=== PATIENT | male | born 1940 | race Caucasian/White ===

== ENCOUNTER 2018-05-13 10:58 | Day surgery (SDC) | payer MEDICARE, BC, SELFPAY ==
[2018-05-13 11:23] VITALS: BP 122/58; PULSE 89; RESP 16; TEMP 35.7; O2SAT 98
[2018-05-13 11:43] LABS: INR 1.1 (0.9-1.1); Prothrombin Time 11.2 sec (9.3-11.0)
[2018-05-13] MEDS: Lidocaine 2% Multi-Dose 50 ML VIAL (12:20)
--- NOTE | 2018-05-13 12:52 | W.PM.OP ---
Date of service: 05/13/18 Time of Service: 12:53 Operative Note DATE OF PROCEDURE: 05/13/18 PRE-OP DIAGNOSIS: temporary dialysis cath POST-OP DIAGNOSIS: same PROCEDURE: cath removal SURGEON: Eric Rivera III ASSISTING SURGEON: Stacy Walters ANESTHESIA: MAC ESTIMATED BLOOD LOSS: 2 PATHOLOGY: none sent COMPLICATIONS: None Patient was transported to: PACU Patient's condition: stable Procedure Description: Patient was seen preoperatively all risks benefits and alternatives were discussed in detail with the surgery and consent was obtained. Patient had a preoperative INR 1.1 due to his Coumadin use for mechanical valve. Patient was brought to the operating room and placed on the operating table in a supine fashion patient underwent local anesthesia over the area was area was prepped and draped in sterile fashion. A timeout was done with the entire OR staff present. Patient had a 1.5 cm incision over the cuff of the dialysis catheter and with sharp dissection down to the level of cuff it was freed of all fibrinous tissue above and below the tract the catheter sat in. With the cuff free of any tissue growth the catheter was easily removed with pressure at the entry site in the neck on the right side. Patient had 5 minutes of pressure held to that area and then had a layered closure of the incision with a sterile dressing applied. A thorough debriefing was done with the entire OR staff. Patient tolerated procedure well was transferred to PACU and then home upon full recovery from anesthesia
--- NOTE | 2018-05-13 12:56 | W.PM.DSUDISC ---
Discharge Plan Discharge Details Attending Provider: Eric Rivera III Primary Care Provider: Chris Phillips Home Meds and New Rx's Prescriptions: No Action warfarin [Coumadin] 2.5 MG tablet 2.5 mg PO HS RF: 0 aspirin [Aspirin Low-Strength] 81 MG tablet,chewable 81 mg PO DAILY AM RF: 0 cholecalciferol (vitamin D3) [Vitamin D3] 1,000 UNIT capsule 1,000 udtab PO DAILY RF: 0 linagliptin [Tradjenta] 5 MG tablet 5 mg PO QAM RF: 0 atorvastatin 40 mg Tablet 40 mg PO QPM RF: 0 torsemide 10 mg Tablet 40 mg PO DIRECTED RF: 0 propranolol 10 mg Tablet 10 mg PO BID RF: 0 B complex with C#20-folic acid 1 mg Capsule 1 cap PO DAILY RF: 0 acetaminophen 500 mg Capsule 1,000 mg PO Q4H PRNRF: 0 acetaminophen 325 mg Capsule 650 mg PO Q6H PRNRF: 0 Nephro-Elyssa 0.8 mg Tablet 1 tab PO DAILY RF: 0
--- NOTE | 2018-05-13 13:13 | W.PM.DSUDISC ---
Discharge Plan Disposition Patient Disposition: HOME Condition: Stable Discharge Details Reason For Visit: dialysis cath removal Attending Provider: Eric Rivera III Primary Care Provider: Chris Phillips Home Meds and New Rx's Prescriptions: Continued aspirin [Aspirin Low-Strength] 81 MG tablet,chewable 81 mg PO DAILY AM RF: 0 cholecalciferol (vitamin D3) [Vitamin D3] 1,000 UNIT capsule 1,000 udtab PO DAILY RF: 0 linagliptin [Tradjenta] 5 MG tablet 5 mg PO QAM RF: 0 atorvastatin 40 mg Tablet 40 mg PO QPM RF: 0 torsemide 10 mg Tablet 40 mg PO DIRECTED RF: 0 propranolol 10 mg Tablet 10 mg PO BID RF: 0 B complex with C#20-folic acid 1 mg Capsule 1 cap PO DAILY RF: 0 acetaminophen 500 mg Capsule 1,000 mg PO Q4H PRNRF: 0 acetaminophen 325 mg Capsule 650 mg PO Q6H PRNRF: 0 Nephro-Elyssa 0.8 mg Tablet 1 tab PO DAILY RF: 0 Discontinued warfarin [Coumadin] 2.5 MG tablet 2.5 mg PO HS RF: 0 Discharge Instructions Activity:: Activity as Tolerated Diet:: As Tolerated Discharge Orders Discharge Orders: Discharge Order (Routine); Ordered 05/13/18 Ordered By: Eric Rivera III DS: Diagnosis Discharge Diagnosis (1) Vascular dialysis catheter in place: Status: Acute
== END 2018-05-13 13:39 | disposition home or self-care (01) ==
PROVIDERS: PCP Internal Medicine; Visit Provider Surgery
PROC: (CPT 36590; principal; 2018-05-13 11:00)
DX: N18.6 End stage renal disease (principal); Z45.2 Encounter for adjustment and management of vascular access device; Z79.01 Long term (current) use of anticoagulants; Z95.2 Presence of prosthetic heart valve; E11.9 Type 2 diabetes mellitus without complications; K21.9 Gastro-esophageal reflux disease without esophagitis; I10 Essential (primary) hypertension
CPT/HCPCS: 36590; 36415; 85610

== ENCOUNTER 2018-06-05 11:57 | Emergency (ER) | payer OTHER, BC, MEDICARE, SELFPAY ==
[2018-06-05 12:01] VITALS: BP 110/59; PULSE 74; RESP 16; TEMP 36.7; O2SAT 100
--- NOTE | 2018-06-05 13:23 | W.ED.GENAD ---
Discharge Plan Disposition Patient Disposition: HOME Condition: Good Discharge Details Chief Complaint: Nausea/Vomit/Diar Clinical Impression: C. difficile diarrhea Primary Care Provider: Chris Phillips ED Provider: Rickey Pastrana Home Meds and New Rx's Prescriptions: New Dificid 200 mg tablet 200 mg PO BID 10 Days Qty: 20 RF: 0 No Action aspirin [Aspirin Low-Strength] 81 MG tablet,chewable 81 mg PO DAILY AM RF: 0 cholecalciferol (vitamin D3) [Vitamin D3] 1,000 UNIT capsule 1,000 udtab PO DAILY RF: 0 atorvastatin 40 mg Tablet 40 mg PO QPM RF: 0 torsemide 10 mg Tablet 20 mg PO DIRECTED RF: 0 propranolol 10 mg Tablet 10 mg PO BID RF: 0 B complex with C#20-folic acid 1 mg Capsule 1 cap PO DAILY RF: 0 acetaminophen 500 mg Capsule 1,000 mg PO Q4H PRNRF: 0 Nephro-Elyssa 0.8 mg Tablet 1 tab PO DAILY RF: 0 warfarin 2.5 mg Tablet 2.5 mg PO HS RF: 0 Renal Vitamin 0.8 mg Tablet 1 tab PO DAILY RF: 0 calcium carbonate 500 mg calcium (1,250 mg) Tablet 500 mg PO TID RF: 0 insulin aspart U-100 100 unit/mL Solution 1 sliding scale dose SUBCUT UD RF: 0 insulin glargine 100 unit/mL (3 mL) Insulin Pen 7 unit SUBCUT DAILY RF: 0 Discharge Instructions Instructions: Clostridium Difficile Infection (ED), Acute Diarrhea (ED) Additional Instructions: Please take medication as directed. If you notice any worsening of your symptoms, or any new symptoms such as vomiting, diarrhea, fever, chills, shortness of breath, chest pain, numbness, weakness, or fainting , please return immediately to the emergency department for reevaluation. Please follow up with your primary care provider as soon as possible for reassessment and reevaluation. As always, it was a pleasure participating in your medical care today. Referrals: Chris Phillips [Primary Care Provider] - Discharge Data Discharge Date/Time-TO BE ENTERED AT DEPARTURE: 06/05/18 12:44 Medical Decision Making This is a pleasant 77-year-old male with an extensive past medical history of Coumadin use secondary to a replaced aortic valve, dialysis secondary to partial nephrectomy, for which she is now starting to come off of dialysis. He presents for diarrhea for the last month she is very benign with only one episode of semi-loose stool in the morning when he wakes up, followed by a regular bowel movement during the day. He denies any abdominal pain, or tenderness. He denies any other modifying factors. He has not been on any antibiotics for over 6 months. He denies any other complaints. The Clostridium difficile test from the [place] that was ordered was positive for C. difficile toxin., And he [facility]. Physical exam demonstrates no signs or symptoms concerning for toxic Mavik megacolon, an acute abdomen, or other significant abnormalities. He demonstrates a very benign exam with reassuring vital signs. His signs and symptoms in general appear inconsistent with severe Clostridium difficile as he has formed stool throughout the day and only the episode of diarrhea in the morning. With no signs of significant acute instability I do not think he needs to be admitted for management here, as his diarrhea is well controlled no abdominal pain or clinical signs or symptoms concerning for colitis. Additionally I do not know if even needs significant treatment. In regards to potential treatment options since he is trying to come off of dialysis I do not think that oral vancomycin is indicated as there is still a systemic absorption component which can be damaging to his kidneys. I do not think Cipro and Flagyl combos would be appropriate as fluoroquinolones use would certainly put him at risk for tendinopathy with his history of steroid use in the recent past. I do think that fidoxomicin would be an appropriate medication as it would not interact with his Coumadin, it would not harm his sensitive kidneys, and would treat potential C. difficile. I have asked our case management to contact the [facility] to help with the insurance coverage of this medication. Patient will be discharged home with close follow-up with the [facility]. I did call the [facility] and inform them of this scenario, and recommended his close follow-up. I have extensively reviewed the treatment plan and discharge instructions with the patient and their family. I have addressed all patient concerns at this time. The patient and family was made aware of what symptoms to monitor for that would warrant a return to the emergency department. Discussed the plan with the patient and family, they demonstrate verbal understanding and agreement with our assessment and plan at this time. HPI General Date/Time Provider Initiated Documentation: 06/05/18 12:04. HPI Narrative: This is a very pleasant 77-year-old male with a past medical history of renal cell carcinoma with partial nephrectomy leading to subsequent dialysis for which she is slowly weaning off, as well as Coumadin for an aortic valve replacement, and diabetes, high cholesterol and hypertension. He presents today for with complaint of diarrhea for 1 month. He was seen and assessed by his primary care provider at the [facility], where they ordered outpatient testing for Clostridium difficile. The patient's results came back positive for C. difficile, and he was told to come to the ER for further evaluation and management. Regards to his diarrhea he states that it is been present for the last 4 weeks. He has one episode of semi-loose stool in the morning, and then usually 1 formed stool later in the day. He denies any abdominal pain, vomiting, hematochezia, melena, acholic stools, recent antibiotic use in the last 5 months, foreign travel, or other complaints. He states that he actually feels that his stool has been improving somewhat over the last few days. Patient denies any other complaints at this time. He denies any other modifying factors. Related Data Home Medications Medication Instructions Recorded Confirmed aspirin [Aspirin Low-Strength] 81 mg PO DAILY AM 07/17/17 06/05/18 cholecalciferol (vitamin D3) 1,000 udtab PO DAILY 07/17/17 06/05/18 [Vitamin D3] B complex with C#20-folic acid 1 cap PO DAILY 05/02/18 06/05/18 acetaminophen 1,000 mg PO Q4H PRN 05/02/18 06/05/18 atorvastatin 40 mg PO QPM 05/02/18 06/05/18 propranolol 10 mg PO BID 05/02/18 06/05/18 torsemide 20 mg PO DIRECTED 05/02/18 06/05/18 Nephro-Elyssa 1 tab PO DAILY 05/13/18 06/05/18 B complex-vitamin C-folic acid 1 tab PO DAILY 06/05/18 06/05/18 [Renal Vitamin] calcium carbonate 500 mg PO TID 06/05/18 06/05/18 fidaxomicin [Dificid] 200 mg PO BID 10 Days #20 tab 06/05/18 insulin aspart U-100 1 sliding scale dose SUBCUT UD 06/05/18 06/05/18 insulin glargine 7 unit SUBCUT DAILY 06/05/18 06/05/18 warfarin 2.5 mg PO HS 06/05/18 06/05/18 Previous Rx's Medication Instructions Recorded fidaxomicin [Dificid] 200 mg PO BID 10 Days #20 tab 06/05/18 Allergies Allergy/AdvReac Type Severity Reaction Status Date / Time No Known Allergies Allergy Unverified 06/05/18 12:19 General Stated Complaint: Nausea/Vomit/Diar JOHAN: 3 Review of Systems Review of Systems All systems reviewed & are unremarkable except as noted in HPI and below PFSH Medical History Surgical procedures, elective (Resolved) Social History Smoking and Tabacco status: Former Tobacco Use Exam Narrative Exam Narrative: 1.Const: Well-nourished, Well-developed, appearing stated age 2.Eyes: PERRL, no conjunctival injection, and symmetrical lids. 3.ENT: Atraumatic external nose and ears. Moist MM. Neck: Symmetric, trachea midline, No thyromegaly. 4.CVS: +S1/S2, No murmurs or gallops. Peripheral pulses 2+ and equal in all extremities. Brisk capillary refill in all extremities. 5.RESP: Unlabored respiratory effort. Clear to auscultation bilaterally. No wheezes rales or rhonchi 6.GI: Soft, Nontender/Nondistended, No hepatosplenomegaly. No guarding or rebound. No signs of an acute 7.MSK: Normocephalic/Atraumatic, Extremities w/o deformity or ttp No cyanosis or clubbing, Normal movement of all extremities 8.Skin: Warm, Dry. No rashes or lesions. 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 Sensation grossly intact, no focal neurologic deficits. 10.Psych: (AAO) x3. Appropriate mood and affect Course Vital Signs Temperature 36.7 C 06/05/18 12:01 Pulse 74 06/05/18 12:01 Respiratory Rate 16 06/05/18 12:01 Blood Pressure 110/59 L 06/05/18 12:01 Pulse Oximetry 100 06/05/18 12:01 Temperature 36.7 C 06/05/18 12:01 Temperature Source Skin 06/05/18 12:01 Pulse 74 06/05/18 12:01 Respiratory Rate 16 06/05/18 12:01 Respiratory Effort Non-Labored 06/05/18 12:18 Blood Pressure 110/59 L 06/05/18 12:01 Pulse Oximetry 100 06/05/18 12:01 Oxygen Delivery Method Room Air 06/05/18 12:01 Oxygen Flow Rate 0 06/05/18 12:01 Pain Level 0 06/05/18 12:40
--- NOTE | 2018-06-05 14:55 | PDOC.ERCMPRO ---
Care Management Progress Note 06/05-Dr. Pastrana requested assistance with medication. Dr. Pastrana prescribed Dificid which is very expensive and wants to be sure that the [facility] will [facility]. Patient has already been discharged. Called [facility] at the [facility] and had to leave a message. Called [facility] who stated that they did pick the medicine up at the pharmacy and it did not cost them anything. Notified Dr. Pastrana that the medication was covered. [facility] has this CM's contact information if further assistance is needed.
== END 2018-06-05 12:44 | disposition home or self-care (01) ==
PROVIDERS: Emergency Provider Student in an Organized Health Care Education/Training Program; PCP Internal Medicine
DX: A04.72 Enterocolitis due to Clostridium difficile, not specified as recurrent (principal); Z79.01 Long term (current) use of anticoagulants; Z90.5 Acquired absence of kidney; Z99.2 Dependence on renal dialysis
CPT/HCPCS: 99283

== ENCOUNTER 2018-06-25 01:22 | Outpatient (CLI) | payer MEDICARE, BC, SELFPAY ==
--- NOTE | 2018-06-25 09:55 | DI.COMBO_ITS ---
SYMPTOMS/DIAGNOSIS: RT BREAST LUMP MAMMOGRAM AND RIGHT BREAST ULTRASOUND: Mammograms were interpreted according to the usual protocol including computer analysis with CAD system, tomosynthesis and C view imaging. There is increased breast tissue seen in the retroareolar regions bilaterally, right greater than left most suggestive of gynecomastia. No solid mass or calcification is seen. The skin and axilla are unremarkable. Right breast ultrasound was performed. The retroareolar region was evaluated sonographically. Breast tissue is seen in the retroareolar region consistent with gynecomastia. No solid or cystic mass is seen. IMPRESSION: No evidence for malignancy. Bilateral gynecomastia right greater than left. Category 2. Breast density C. The findings were discussed with the patient on the date of the examination. SA ASSESSMENT OF FINDINGS: Negative with benign findings. Category 2. Patient will receive a letter notifying them of these results. Bi-RADS category C. The breasts are heterogeneously dense, which may obscure small masses.
== END 2018-06-25 01:42 ==
PROVIDERS: PCP Internal Medicine; Visit Provider Internal Medicine
DX: N63.10 Unspecified lump in the right breast, unspecified quadrant (principal); N62 Hypertrophy of breast
CPT/HCPCS: 76642; 77062; 77066; G0279

== ENCOUNTER 2018-09-21 11:43 | Emergency (ER) | payer OTHER, BC, SELFPAY ==
[2018-09-21] VITALS (54 sets, daily range): BP systolic 101–142; BP diastolic 45–77; PULSE 86–122; RESP 9–29; TEMP 37.4; O2SAT 91–97
--- NOTE | 2018-09-21 11:48 | NUR.NOTE ---
pt developed SOB this morning upon awakening. pt also describes feeling pressure in lower sternum as well as dull left shoulder pain earlier today
--- NOTE | 2018-09-21 11:59 | DI.RAD_ITS ---
SYMPTOM/DIAGNOSIS: CHEST PAIN PA AND LATERAL CHEST: There is an apparent aortic valve prosthesis. Cardiac size is mildly enlarged. There are bilateral pleural effusions, right greater than left. No focal consolidation is seen. CONCLUSION: Bilateral pleural effusions, question mild CHF. Appropriate follow up studies requested.
--- NOTE | 2018-09-21 12:02 | ED.GENADUL_ITS ---
Discharge Plan Disposition Patient Disposition: [facility], [place] Condition: Stable Discharge Details Chief Complaint: SOB Clinical Impression: NSTEMI (non-ST elevated myocardial infarction), Elevated troponin, Pleural effusion, bilateral, Abdominal distension Primary Care Provider: Chris Phillips ED Provider: Tania Briones Home Meds and New Rx's Prescriptions: No Action aspirin [Aspirin Low-Strength] 81 MG tablet,chewable 81 mg PO DAILY AM RF: 0 cholecalciferol (vitamin D3) [Vitamin D3] 1,000 UNIT capsule 1,000 udtab PO DAILY RF: 0 atorvastatin 40 mg Tablet 40 mg PO QPM RF: 0 torsemide 10 mg Tablet 20 mg PO DIRECTED RF: 0 warfarin 2.5 mg Tablet 2.5 mg PO HS RF: 0 spironolactone 25 mg Tablet 25 mg PO DAILY RF: 0 vancomycin [Vancocin] 125 mg Capsule 125 mg PO DAILY RF: 0 diltiazem HCl [DILT-XR] 120 mg Capsule,Ext.Rel 24h Degradable 120 mg PO DAILY RF: 0 midodrine 10 mg Tablet 10 mg PO TID RF: 0 lactobacillus combo #5 150 mg (2 billion cell) Tablet,Delayed Release (Dr/Ec) RF: 0 Discharge Data Discharge Date/Time-TO BE ENTERED AT DEPARTURE: 09/21/18 17:05 Medical Decision Making 77-year-old male with history of diabetes, GERD, hypertension, end-stage renal disease on dialysis, nonalcoholic liver cirrhosis, aortic valve replacement and partial nephrectomy who presents with shortness of breath, abdominal pain and chest stiffness since this morning. Blood pressure mildly hypertensive, heart rate tachycardic 110s. Afebrile. Oxygen saturation 94% on room air. Patient is speaking in full sentences and demonstrates no signs of respiratory distress. He has diminished breath sounds in the bases bilaterally but no wheezing. He has mild abdominal distention but his abdomen is otherwise soft and nontender. EKG on arrival notes a rate of 123 and sinus with no acute ST findings, and no significant change compared to previous. Cardiac work-up ordered on arrival and notes a white blood cell count of 15, INR 2.1 on Coumadin, creatinine 4.07 which appears his baseline, troponin 0 0.08. Chest x-ray notes a moderate right pleural and small left pleural effusions. Patient is followed at the [facility]. His presentation appears likely consistent with fluid overload which may be associated with ascites with his cirrhosis versus due to his end-stage renal disease. As patient had a paracentesis at the [facility] recently and is scheduled for a paracentesis next week, will call the [facility] for transfer. 1600 -- second troponin uptrending 1.12. Patient denies any chest pain. Repeat EKG unchanged. 1630 -- d/w ER physician at [facility] Dr. Amos -results appear consistent with likely type II NSTEMI as pt denies any chest pain with unchanged ekg, and in the setting of pleural effusion and abdominal distension. However discussed that cannot rule out possible NSTEMI related to ischemia. Agree with plan for holding on heparin and Plavix at this time. Patient is on Coumadin. Will trend troponins and accepts pt for transfer to ICU at the [facility]. Medical Records Medical records reviewed: Yes I reviewed the patient's medical records. Imaging Data Radiologic Study: Radiologist's impression: XR Chest, 2 Views EXAM DATE/TIME: 09/21/2018 12:02 PM CLINICAL HISTORY: 77 years old, male; Signs and symptoms; Other: Chest pain, R/O acute disease TECHNIQUE: Imaging protocol: XR of the chest, 2 views. COMPARISON: CR PORTABLE CHEST ONE VIEW 10/07/2017 2:57 PM FINDINGS: Lungs: Unremarkable. No consolidation. Pleural space: Moderate right pleural effusion. Small left pleural effusion. Heart/Mediastinum: Valve prosthesis. No cardiomegaly. Bones/joints: Median sternotomy wires. IMPRESSION: Moderate right pleural effusion. Small left pleural effusion. Lab Data Lab results reviewed: Yes I reviewed the patient's lab results. Laboratory Tests Range/Units 09/21/18 09/21/18 09/21/18 12:00 12:14 12:14 WBC (4.4-10.8) k/cumm 15.45 H RBC (4.50-6.00) m/cumm 3.69 L Hgb (13.5-17.5) g/dL 11.9 L Hct (40.0-50.0) % 37.0 L MCV (80-95) fL 100.3 H MCH (27.0-33.0) pg 32.2 MCHC (32.0-36.0) g/dL 32.2 RDW (11.8-14.1) % 18.0 H Plt Count (130-400) x1000/uL 187 MPV (8.0-11.0) fL 11.5 H Immature Gran % 0.3 Neutrophils % 91.9 Lymphocytes % 3.7 Monocytes % 4.0 Eosinophils % 0.0 Basophils % 0.1 Absolute Neutrophils (1.2-6.7) k/cumm 14.20 H Absolute Lymphocytes (1.2-3.4) k/cumm 0.57 L Absolute Monocytes (0.11-0.7) k/cumm 0.62 Absolute Eosinophils (0.0-0.7) k/cumm 0.00 Absolute Basophils (0.0-0.2) k/cumm 0.02 PT (9.3-11.0) sec 20.9 H INR (0.9-1.1) 2.1 H APTT (21.0-31.4) sec 33.5 H Sodium (136-145) mmol/L 134 L Potassium (3.5-5.1) mmol/L 4.3 Chloride (98-107) mmol/L 96 L Carbon Dioxide (21.0-32.0) mmol/L 29.7 Anion Gap (3-11) mmol/L 8.3 BUN (7-18) mg/dL 22 H Creatinine (0.70-1.30) mg/dL 4.07 H* Estimated GFR/1.73 m2 (mL/min/1.73m2) 14.38 Glucose (70-100) mg/dL 208 H Calcium (8.5-10.1) mg/dL 8.1 L Magnesium (1.8-2.4) mg/dL 2.0 Total Bilirubin (0.2-1.0) mg/dL 1.8 H AST (15-37) U/L 102 H ALT (12-78) U/L 54 Alkaline Phosphatase (46-116) U/L 469 H Troponin I (0.00-0.06) ng/mL 0.08 H* Total Protein (6.4-8.2) g/dL 8.0 Albumin (3.4-5.0) g/dL 2.1 L Range/Units 09/21/18 15:00 WBC (4.4-10.8) k/cumm RBC (4.50-6.00) m/cumm Hgb (13.5-17.5) g/dL Hct (40.0-50.0) % MCV (80-95) fL MCH (27.0-33.0) pg MCHC (32.0-36.0) g/dL RDW (11.8-14.1) % Plt Count (130-400) x1000/uL MPV (8.0-11.0) fL Immature Gran % Neutrophils % Lymphocytes % Monocytes % Eosinophils % Basophils % Absolute Neutrophils (1.2-6.7) k/cumm Absolute Lymphocytes (1.2-3.4) k/cumm Absolute Monocytes (0.11-0.7) k/cumm Absolute Eosinophils (0.0-0.7) k/cumm Absolute Basophils (0.0-0.2) k/cumm PT (9.3-11.0) sec INR (0.9-1.1) APTT (21.0-31.4) sec Sodium (136-145) mmol/L Potassium (3.5-5.1) mmol/L Chloride (98-107) mmol/L Carbon Dioxide (21.0-32.0) mmol/L Anion Gap (3-11) mmol/L BUN (7-18) mg/dL Creatinine (0.70-1.30) mg/dL Estimated GFR/1.73 m2 (mL/min/1.73m2) Glucose (70-100) mg/dL Calcium (8.5-10.1) mg/dL Magnesium (1.8-2.4) mg/dL Total Bilirubin (0.2-1.0) mg/dL AST (15-37) U/L ALT (12-78) U/L Alkaline Phosphatase (46-116) U/L Troponin I (0.00-0.06) ng/mL 1.12 H* Total Protein (6.4-8.2) g/dL Albumin (3.4-5.0) g/dL ECG Data Attestation: I personally reviewed and interpreted this ECG (s) as follows: Interpretation: #1 -- 1150 --rate of 123, sinus, no acute ST elevation or depression. Left anterior fascicular block. QTc 483. QRS 112. T wave inversion in 1 and aVL which is seen in previous. T wave inversion in V2 which is new from previous. #2 -- 1619 --rate of 104, sinus, no acute ST elevation or depression. Left anterior fascicular block. QTc 505, QRS 114. T wave inversion in 1 and aVL which is seen in previous. Resolution of T wave inversion in V2. HPI General Mode of arrival: ambulatory . Date/Time Provider Initiated Documentation: 09/21/18 11:56 . Limitations to Documentation: no limitations . Information obtained by: patient . HPI Narrative: Patient is a 77-year-old male with a history of diabetes, GERD, hypertension, nonalcoholic liver cirrhosis end-stage renal disease on dialysis, aortic valve replacement and partial nephrectomy who presents with shortness of breath, chest stiffness and abdominal pain since this morning. He has been receiving dialysis for the past year and states his last session was his scheduled session yesterday which he completed. Patient states his symptoms feel similar as to when he has had fluid overload with his ascites due to his cirrhosis. Patient states he received a paracentesis at the [facility] recently and is scheduled for a repeat paracentesis on September 29. He admits to a chronic cough and states this is no worse than usual. He states he has been eating and drinking normally. He denies any fever, vomiting or dizziness. He states he makes some urine. Related Data Home Medications Medication Instructions Recorded Confirmed aspirin [Aspirin Low-Strength] 81 mg PO DAILY AM 07/17/17 09/21/18 cholecalciferol (vitamin D3) 1,000 udtab PO DAILY 07/17/17 09/21/18 [Vitamin D3] atorvastatin 40 mg PO QPM 05/02/18 09/21/18 torsemide 20 mg PO DIRECTED 05/02/18 09/21/18 warfarin 2.5 mg PO HS 06/05/18 09/21/18 diltiazem HCl [DILT-XR] 120 mg PO DAILY 09/21/18 09/21/18 lactobacillus combo #5 09/21/18 midodrine 10 mg PO TID 09/21/18 09/21/18 spironolactone 25 mg PO DAILY 09/21/18 09/21/18 vancomycin [Vancocin] 125 mg PO DAILY 09/21/18 09/21/18 Allergies Allergy/AdvReac Type Severity Reaction Status Date / Time No Known Allergies Allergy Unverified 09/21/18 11:53 General Stated Complaint: SOB JOHAN: 2 Review of Systems Review of Systems All systems reviewed & are unremarkable except as noted in HPI and below Constitutional Reports as per HPI, Denies chills and Denies fever(s) Eyes Denies blurry vision ENT Denies dizziness, Denies sore throat and Denies throat swelling Cardiovascular Reports chest pain and Reports dyspnea Respiratory Denies cough and Reports dyspnea Gastrointestinal Reports abdominal pain, Denies diarrhea and Denies vomiting Genitourinary Denies hematuria and Denies dysuria Musculoskeletal Denies back pain and Denies numbness Integumentary/Breasts Denies lesions and Denies rash Neurologic Denies dizziness, Denies focal weakness and Denies numbness Allergic/Immunologic Denies throat swelling [facility] Medical History ESRD (end stage renal disease) on dialysis (Acute) Diabetes (Chronic) GERD (gastroesophageal reflux disease) (Chronic) HTN (hypertension) (Chronic) Surgical procedures, elective (Resolved) Surgical History H/O aortic valve replacement (Acute) History of nephrectomy (Acute) History of cataract surgery (Chronic) Social History Smoking/Tobacco Use Status: Former Tobacco Use Alcohol Intake: never Drug use: Never Substance use type: does not use Do you feel safe at home: Yes Do you feel safe in your relationship?: Yes Exam Const General: cooperative, healthy appearing and no acute distress HENMT Head: normal to inspection Face and sinus: normal facial exam Eyes General: appearance normal, both eyes and all related structures EOM: EOM intact bilaterally Neck Neck: normal visual inspection and No submandibular swelling Lymphatic: no lymphadenopathy noted Chest Chest: normal inspection of the chest and no tenderness Resp Effort & Inspection: normal respiratory effort and able to speak in complete sentences Auscultation: diminished lung sounds bilaterally (Bases) Cardio Rate: tachycardic Rhythm: regular rhythm GI Inspection: normal to inspection and distended (mild-moderate) Palpation: soft, not firm, not rigid and nontender Auscultation: hypoactive bowel sounds Skin General skin exam: no rashes or lesions noted Neuro General: alert, awake and oriented x3 Cognition: normal cognition Speech: speech normal Motor: muscle tone normal throughout Sensory Exam: no sensory deficits noted Extrem General: normal to inspection, full ROM and no edema Psych Appearance: grossly normal Mental Status: mental status grossly normal Speech and Movement: speech and movement normal Affect: normal affect Course Vital Signs Temperature 99.3 F 09/21/18 11:50 Pulse 121 H 09/21/18 11:50 Respiratory Rate 18 09/21/18 11:50 Blood Pressure 142/58 H 09/21/18 11:50 Pulse Oximetry 94 L 09/21/18 11:50 Temperature 99.3 F 09/21/18 11:50 Temperature Source Skin 09/21/18 11:50 Pulse 121 H 09/21/18 11:50 Respiratory Rate 18 09/21/18 11:50 Blood Pressure 142/58 H 09/21/18 11:50 Blood Pressure Position Sitting 09/21/18 11:50 Pulse Oximetry 94 L 09/21/18 11:50 Oxygen Delivery Method Room Air 09/21/18 11:50 Oxygen Flow Rate 0 09/21/18 11:50 Pain Level 2 09/21/18 11:50
[2018-09-21 12:24] LABS: Abs Immature Grans 0.05 k/cumm (0.0-0.09); Absolute Lymphocyte Count 0.57 k/cumm (1.2-3.4); Absolute Monocyte Count 0.62 k/cumm (0.11-0.7); Basophils % 0.1; HGB 11.9 g/dL (13.5-17.5); Immature Grans % 0.3; Lymphocytes % 3.7; Mean Corp. HGB Concentration 32.2 g/dL (32.0-36.0); Mean Corpuscular Hemoglobin 32.2 pg (27.0-33.0); Mean Corpuscular Volume 100.3 fL (80-95); Mean Platelet Volume 11.5 fL (8.0-11.0); Neutrophils % 91.9; Platelet Count 187 x1000/uL (130-400); RBC 3.69 m/cumm (4.50-6.00); White Blood Cell Count 15.45 k/cumm (4.4-10.8)
[2018-09-21 12:26] LABS: Absolute Basophil Count 0.02 k/cumm (0.0-0.2)
[2018-09-21 12:38] LABS: INR 2.1 (0.9-1.1); PTT Activated 33.5 sec (21.0-31.4); Prothrombin Time 20.9 sec (9.3-11.0)
[2018-09-21 12:39] LABS: ALT 54 U/L (12-78); AST 102 U/L (15-37); Albumin 2.1 g/dL (3.4-5.0); Alkaline Phosphatase 469 U/L (46-116); Anion Gap 8.3 mmol/L (3-11); BUN 22 mg/dL (7-18); Bilirubin, Total 1.8 mg/dL (0.2-1.0); CO2 29.7 mmol/L (21.0-32.0); Calcium 8.1 mg/dL (8.5-10.1); Chloride 96 mmol/L (98-107); Estimated GFR 14.38 (mL/min/1.73m2); Glucose 208 mg/dL (70-100); Potassium 4.3 mmol/L (3.5-5.1); Sodium 134 mmol/L (136-145)
[2018-09-21 12:41] LABS: CREATININE 4.07 mg/dL (0.70-1.30)
[2018-09-21 12:42] LABS: Troponin I 0.08 ng/mL (0.00-0.06)
--- NOTE | 2018-09-21 13:10 | DI.VRAD_ITS ---
EXAM: XR Chest, 2 Views EXAM DATE/TIME: 09/21/2018 12:02 PM CLINICAL HISTORY: 77 years old, male; Signs and symptoms; Other: Chest pain, R/O acute disease TECHNIQUE: Imaging protocol: XR of the chest, 2 views. COMPARISON: CR PORTABLE CHEST ONE VIEW 10/07/2017 2:57 PM FINDINGS: Lungs: Unremarkable. No consolidation. Pleural space: Moderate right pleural effusion. Small left pleural effusion. Heart/Mediastinum: Valve prosthesis. No cardiomegaly. Bones/joints: Median sternotomy wires. IMPRESSION: Moderate right pleural effusion. Small left pleural effusion. Dictated and Authenticated by: Carol Dang MD. Ordering:CHRISTINA Marin MD
[2018-09-21 15:23] LABS: Troponin I 1.12 ng/mL (0.00-0.06)
--- NOTE | 2018-09-21 16:03 | NUR.NOTE ---
Nursing Note: 0555 [facility] called to say that he could not get [facility] to transport the patient, that we were to use the local service for his transfer. Lola Mcdaniels.
[2018-09-21] MEDS: Aspirin 81 MG CHEW (16:04)
--- NOTE | 2018-09-21 16:07 | NUR.NOTE ---
pt state that SOB no longer present post beeing places on 3 L
== END 2018-09-21 17:05 | disposition short-term general hospital (02) ==
PROVIDERS: Emergency Provider Physician Assistant; PCP Internal Medicine
DX: I21.4 Non-ST elevation (NSTEMI) myocardial infarction (principal); J90 Pleural effusion, not elsewhere classified; R14.0 Abdominal distension (gaseous); E11.22 Type 2 diabetes mellitus with diabetic chronic kidney disease; I12.0 Hypertensive chronic kidney disease with stage 5 chronic kidney disease or end stage renal disease; N18.6 End stage renal disease; Z99.2 Dependence on renal dialysis; Z95.2 Presence of prosthetic heart valve; Z90.5 Acquired absence of kidney
CPT/HCPCS: 36415; 80053; 93005; 99285; 71046; 83735; 84484; 85025; 85610; 85730; 93010

== ENCOUNTER 2018-12-23 19:02 | Emergency (ER) | payer OTHER, SELFPAY ==
--- NOTE | 2018-12-23 19:09 | ED.GENADUL_ITS ---
Discharge Plan Disposition Patient Disposition: HOME Condition: Stable Discharge Details Chief Complaint: Laceration Clinical Impression: Hemorrhage of arteriovenous fistula Primary Care Provider: Chris Phillips ED Provider: Chris Allan Home Meds and New Rx's Prescriptions: Continued aspirin [Aspirin Low-Strength] 81 MG tablet,chewable 81 mg PO DAILY AM RF: 0 cholecalciferol (vitamin D3) [Vitamin D3] 1,000 UNIT capsule 1,000 udtab PO DAILY RF: 0 atorvastatin 40 mg Tablet 40 mg PO QPM RF: 0 torsemide 10 mg Tablet 20 mg PO DIRECTED RF: 0 warfarin 2.5 mg Tablet 2.5 mg PO HS RF: 0 spironolactone 25 mg Tablet 25 mg PO DAILY RF: 0 vancomycin [Vancocin] 125 mg Capsule 125 mg PO DAILY RF: 0 diltiazem HCl [DILT-XR] 120 mg Capsule,Ext.Rel 24h Degradable 120 mg PO DAILY RF: 0 midodrine 10 mg Tablet 10 mg PO TID RF: 0 lactobacillus combo #5 150 mg (2 billion cell) Tablet,Delayed Release (Dr/Ec) RF: 0 Discharge Instructions Additional Instructions: if bleeding recurs hold direct pressure over the site for 20 minutes. If this doesn't stop the bleeding return to the emergency department Medical Decision Making 78 yo male with hx of esrd on dialysis who underwent dialysis earlier today and tonight had bleeding from his left fistula. He applieda pressure dressing and came here, and no longer has any bleeding. Has 2small superficial areas over the fistula that appear to have been the source of bleeding, no evidence of arterial bleeding. I covered with skin adhesive and pressure dressing applied. Advised if recurs and can't control with pressure to return to the emergency department. Strong palpable thrill over fistula and no evidence of infection at this time Differential Diagnosis bleeding fistula, laceration HPI General Mode of arrival: ambulatory . Date/Time Provider Initiated Documentation: 12/23/18 19:08 . Limitations to Documentation: no limitations . Information obtained by: patient . History of Present Illness 78 year old M presents to the emergency department with the chief complaint of bleeding from left arm fistula, described as moderate, and it has been now resolved. No relieving factors improve symptom(s), No exacerbating factors reported . Patient did receive the following treatments prior to arrival, none Related Data Home Medications Medication Instructions Recorded Confirmed aspirin [Aspirin Low-Strength] 81 mg PO DAILY AM 07/17/17 09/21/18 cholecalciferol (vitamin D3) 1,000 udtab PO DAILY 07/17/17 09/21/18 [Vitamin D3] atorvastatin 40 mg PO QPM 05/02/18 09/21/18 torsemide 20 mg PO DIRECTED 05/02/18 09/21/18 warfarin 2.5 mg PO HS 06/05/18 09/21/18 diltiazem HCl [DILT-XR] 120 mg PO DAILY 09/21/18 09/21/18 lactobacillus combo #5 09/21/18 midodrine 10 mg PO TID 09/21/18 09/21/18 spironolactone 25 mg PO DAILY 09/21/18 09/21/18 vancomycin [Vancocin] 125 mg PO DAILY 09/21/18 09/21/18 Allergies Allergy/AdvReac Type Severity Reaction Status Date / Time No Known Allergies Allergy Unverified 09/21/18 11:53 General JOHAN: 2 Review of Systems Review of Systems All systems reviewed & are unremarkable except as noted in HPI and below Constitutional Denies chills, Denies fever(s) and Denies weakness Cardiovascular Denies chest pain and Denies dyspnea Respiratory Denies cough and Denies dyspnea Gastrointestinal Denies abdominal pain, Denies nausea and Denies vomiting Musculoskeletal Denies joint swelling Neurologic Denies weakness [facility] Social History Smoking/Tobacco Use Status: Former Tobacco Use Alcohol Intake: never Drug use: Never Substance use type: does not use Do you feel safe at home: Yes Do you feel safe in your relationship?: Yes Exam Const General: no acute distress Orientation: alert HENUT Head: normal to inspection Ears: external ears normal General nose exam: external nose normal Mouth: moist mucous membranes Eyes General: appearance normal, both eyes and all related structures Neck Neck: normal visual inspection Resp Effort & Inspection: normal respiratory effort and able to speak in complete sentences Cardio Rate: regular rate Skin General skin exam: no rashes or lesions noted Neuro General: alert and oriented x3 Extrem General: full ROM Psych Mental Status: mental status grossly normal
[2018-12-23 19:12] VITALS: BP 119/55; PULSE 75; RESP 17; TEMP 37.6; O2SAT 98
[2018-12-23 19:16] VITALS: BP 119/55; PULSE 75; RESP 17; TEMP 37.6; O2SAT 98
== END 2018-12-23 19:18 | disposition home or self-care (01) ==
PROVIDERS: Emergency Provider Emergency Medicine; PCP Internal Medicine
DX: T82.838A Hemorrhage due to vascular prosthetic devices, implants and grafts, initial encounter (principal); S41.112A Laceration without foreign body of left upper arm, initial encounter; X58.XXXA Exposure to other specified factors, initial encounter; N18.6 End stage renal disease; Z99.2 Dependence on renal dialysis; E11.22 Type 2 diabetes mellitus with diabetic chronic kidney disease; Z79.4 Long term (current) use of insulin; I12.0 Hypertensive chronic kidney disease with stage 5 chronic kidney disease or end stage renal disease
CPT/HCPCS: 12001

== ENCOUNTER 2018-12-30 18:55 | Emergency (ER) | payer OTHER, MEDICARE, BC, SELFPAY ==
[2018-12-30 19:03] VITALS: BP 127/73; PULSE 75; RESP 18; TEMP 36.1; O2SAT 100
--- NOTE | 2018-12-30 19:10 | W.ED.GENAD ---
Discharge Plan Disposition Patient Disposition: HOME Discharge Details Chief Complaint: Vascular Clinical Impression: Hemorrhage of arteriovenous fistula Primary Care Provider: Chris Phillips ED Provider: Reuben Bacon Home Meds and New Rx's Prescriptions: No Action aspirin [Aspirin Low-Strength] 81 MG tablet,chewable 81 mg PO DAILY AM RF: 0 cholecalciferol (vitamin D3) [Vitamin D3] 1,000 UNIT capsule 1,000 udtab PO DAILY RF: 0 atorvastatin 40 mg Tablet 40 mg PO QPM RF: 0 torsemide 10 mg Tablet 20 mg PO DIRECTED RF: 0 warfarin 2.5 mg Tablet 5 mg PO HS RF: 0 spironolactone 25 mg Tablet 25 mg PO DAILY RF: 0 midodrine 10 mg Tablet 10 mg PO TID RF: 0 lactobacillus combo #5 150 mg (2 billion cell) Tablet,Delayed Release (Dr/Ec) RF: 0 Discharge Instructions Additional Instructions: If your bleeding returns at home apply direct pressure with 4 x 4 dressings. We did find that your INR was slightly elevated today therefore I have instructed that you hold your Coumadin tonight and restart your normal dose tomorrow. If bleeding becomes severe return to the emergency department immediately. Referrals: Chris Phillips [Primary Care Provider] - 1 day Medical Decision Making This is a nontoxic-appearing 78-year-old male returning to the emergency department with a slow bleed from his arterial venous fistula. Bleeding controlled prior to arrival. 2 small areas of source of bleeding noted over the AV fistula. Area compressed with 4 x 4's and Rashawn wrap. His INR was slightly elevated at 3.8, however he requires Coumadin for his aortic valve. Normal reference range 2.5-3.5. I have instructed him to hold his Coumadin tonight and restart at his normal dose tomorrow. Return precautions discussed. He will follow-up with his primary care at the [facility] tomorrow. HPI General Date/Time Provider Initiated Documentation: 12/30/18 19:10. HPI Narrative: Patient is a 78-year-old male presenting with a left arm graft fistula with weekly dialysis who presents to the emergency department with a bleeding graft. Patient states that he is presented to the emergency department with similar symptoms in the past. He is on Coumadin with his INR drawn today at the [facility]. He does not know the result. Denies any dizziness or lightheadedness associated with bleeding. Bleeding occurred roughly 30 minutes ago and he believes he is got it under control at this time. Related Data Home Medications Medication Instructions Recorded Confirmed aspirin [Aspirin Low-Strength] 81 mg PO DAILY AM 07/17/17 09/21/18 cholecalciferol (vitamin D3) 1,000 udtab PO DAILY 07/17/17 09/21/18 [Vitamin D3] atorvastatin 40 mg PO QPM 05/02/18 09/21/18 torsemide 20 mg PO DIRECTED 05/02/18 09/21/18 warfarin 5 mg PO HS 06/05/18 12/30/18 lactobacillus combo #5 09/21/18 midodrine 10 mg PO TID 09/21/18 09/21/18 spironolactone 25 mg PO DAILY 09/21/18 09/21/18 Allergies Allergy/AdvReac Type Severity Reaction Status Date / Time No Known Allergies Allergy Unverified 12/30/18 19:05 General Stated Complaint: Vascular JOHAN: 3 Review of Systems Constitutional Denies fatigue, Denies lethargy and Denies weakness ENT Denies dizziness Cardiovascular Denies chest pain, Denies syncope and Denies dyspnea Respiratory Denies dyspnea Neurologic Denies dizziness, Denies syncope, Denies focal weakness and Denies weakness Endocrine Denies fatigue [facility] Medical History Diabetes (Chronic) ESRD (end stage renal disease) on dialysis (Acute) GERD (gastroesophageal reflux disease) (Chronic) HTN (hypertension) (Chronic) Surgical procedures, elective (Resolved) Removal of temporary dialysis catheter/port by Dr Eric Rivera, [facility] Surgical History H/O aortic valve replacement (Acute) History of cataract surgery (Chronic) History of nephrectomy (Acute) Social History Smoking/Tobacco Use Status: Former Tobacco Use Alcohol Intake: never Drug use: Never Substance use type: does not use Do you feel safe at home: Yes Do you feel safe in your relationship?: Yes Exam Const General: cooperative and healthy appearing Orientation: alert, awake and oriented x3 HENMT Head: normal to inspection Eyes General: appearance normal, both eyes and all related structures EOM: EOM intact bilaterally Neck Neck: normal visual inspection Extrem Other: Small area of clotted blood roughly 1 cm in diameter over the mid aspect of the AV fistula. No active bleeding at this time. No signs of infection without erythema. Notable thrill Course Vital Signs Temperature 36.1 C L 12/30/18 19:03 Pulse 75 12/30/18 19:03 Respiratory Rate 18 12/30/18 19:03 Blood Pressure 127/73 12/30/18 19:03 Pulse Oximetry 100 12/30/18 19:03 Temperature 36.1 C L 12/30/18 19:03 Temperature Source Skin 12/30/18 19:03 Pulse 75 12/30/18 19:03 Respiratory Rate 18 12/30/18 19:03 Blood Pressure 127/73 12/30/18 19:03 Blood Pressure Position Sitting 12/30/18 19:03 Pulse Oximetry 100 12/30/18 19:03 Oxygen Delivery Method Room Air 12/30/18 19:03 Oxygen Flow Rate 0 12/30/18 19:03 Pain Level 0 12/30/18 19:03
== END 2018-12-30 20:05 | disposition home or self-care (01) ==
PROVIDERS: Emergency Provider Physician Assistant; PCP Internal Medicine
DX: T82.838A Hemorrhage due to vascular prosthetic devices, implants and grafts, initial encounter (principal); R79.1 Abnormal coagulation profile; T45.515A Adverse effect of anticoagulants, initial encounter; Z95.2 Presence of prosthetic heart valve; I12.0 Hypertensive chronic kidney disease with stage 5 chronic kidney disease or end stage renal disease; N18.6 End stage renal disease; Z99.2 Dependence on renal dialysis; E11.22 Type 2 diabetes mellitus with diabetic chronic kidney disease
CPT/HCPCS: 99282; 99283

== ENCOUNTER 2020-01-28 11:06 | Emergency (ER) | payer MEDICARE, BC, SELFPAY ==
[2020-01-28] VITALS (54 sets, daily range): BP systolic 60–118; BP diastolic 33–60; PULSE 78–137; RESP 13–38; TEMP 35.9; O2SAT 96–100
--- NOTE | 2020-01-28 11:00 | RT.EKG_ITS ---
APPROVED REPORT Exam: Resting ECG Patient Location: E HR:100 bpm ECG Measurements Heart Rate 100 AXIS W[place] [id number] P [id number] QRSd 124 QRS -62 QT 433 T 124 QTc 558 Conclusion Atrial fibrillation RBBB and LAFB... LVH with secondary repolarization abnormality...multi-LVH criteria, abnrm ST-T
--- NOTE | 2020-01-28 11:00 | RT.EKG_ITS ---
APPROVED REPORT Exam: Resting ECG Patient Location: E HR:94 bpm ECG Measurements Heart Rate 94 AXIS MA [id number] P [id number] QRSd 114 QRS -62 QT 420 T 104 QTc 527 Conclusion Atrial fibrillation. Incomplete RBBB and LVH with secondary repolarization abnormality...multi-LVH criteria, abnrm ST-T
--- NOTE | 2020-01-28 11:15 | DI.RAD_ITS ---
EXAM: XR PORTABLE CHEST AP CLINICAL HISTORY: CHest pain TECHNIQUE: COMPARISON: CR XR CHEST 2V PA LATERAL from 09/21/2018 FINDINGS: There is a right pleural effusion. No definite left pleural effusion. Slight prominence of pulmonar y interstitial markings may reflect chronic changes versus borderline CHF. Heart is enlarged with AV R in place. IMPRESSION: Right pleural effusion, question mild CHF, little interval change from 09/21/2018 except for decrease d size of left pleural effusion since that time RADIATION DOSE DELIVERED: Total DLP
[2020-01-28 11:21] LABS: Abs Immature Grans 0.01 10^3/uL (0.0-0.06); Absolute Basophil Count 0.02 10^3/uL (0.0-0.2); Absolute Eosinophil Count 0.04 10^3/uL (0.0-0.7); Absolute Lymphocyte Count 1.56 10^3/uL (1.2-3.4); Absolute Neutrophil Count 1.94 10^3/uL (1.2-6.7); Basophils % 0.5; HCT 28.5 % (40.0-50.0); HGB 9.5 g/dL (13.5-17.5); Immature Grans % 0.2; Lymphocytes % 37.4; MCH 32.4 pg (27.0-33.0); MCHC 33.3 % (32.0-36.0); MCV 97.3 fL (80-95); MPV 12.9 fL (8.0-11.0); Monocytes % 14.4; Neutrophils % 46.5; Nucleated RBC 0 %; RBC 2.93 10^6/uL (4.36-5.78); RDW 16.4 % (11.8-14.1); RDW-SD 58.4 fL; WBC 4.17 10^3/uL (4.4-10.8)
--- NOTE | 2020-01-28 11:21 | W.ED.GENAD ---
Discharge Plan Disposition Patient Disposition: [facility] Condition: Critical Discharge Details Clinical Impression: Hypotension, Chest pain Primary Care Provider: Chris Phillips ED Provider: Jay Cisse Home Meds and New Rx's Prescriptions: No Action aspirin [Aspirin Low-Strength] 81 MG tablet,chewable 81 mg PO DAILY AM RF: 0 cholecalciferol (vitamin D3) [Vitamin D3] 1,000 UNIT capsule 1,000 udtab PO DAILY RF: 0 atorvastatin 40 mg Tablet 40 mg PO QPM RF: 0 torsemide 10 mg Tablet 20 mg PO .// RF: 0 warfarin 2.5 mg Tablet 5 mg PO .// RF: 0 spironolactone 25 mg Tablet 25 mg PO .// RF: 0 midodrine 10 mg Tablet 10 mg PO BID RF: 0 lactobacillus combo #5 150 mg (2 billion cell) Tablet,Delayed Release (Dr/Ec) 150 mg PO .WITH MEALS RF: 0 warfarin 2.5 mg Tablet 2.5 mg PO ./// RF: 0 Renal Multivitamin Formula 0.8 mg Tablet 1 tab PO DAILY RF: 0 sevelamer carbonate 800 mg tablet 800 mg PO QID RF: 0 Medical Decision Making 79-year-old male presents from dialysis. He had his routine hemodialysis, then at the end developed hypotension with blood pressure 80/40. He was given a total of 1600 cc fluids and brought to the hospital by EMS. He arrives pale, diaphoretic, ill-appearing and hypotensive. He has a history of A. fib, aortic valve replacement, CABG, as well as 2 stents to his ramus. His initial EKG shows A. fib with a rate of proxy [address] depressions and T wave inversions in 1 and aVL, ST depressions laterally. He has interventricular conduction delay which appears somewhat more pronounced in comparison to September 21, 2018. Patient placed on a compliance monitor, given additional 200 cc of fluid and 2 peripheral IVs placed. Persistent hypotension and patient placed on a dobutamine drip. Initial chest x-ray with known previously noted right pleural effusion, cardiomegaly and trace pulmonary edema. Labs with white count 4, hematocrit 28, platelets 88. His potassium is 2.8 and supplemented in the ED. ABG with pH 7.6 PCO2 28, PO2 of 146. Initial troponin negative. Given undifferentiated chest pain with hypotension, patient referred for CT scan of the chest. Upon return from CT, patient states chest pain improving. CT reveals:no PE, no significant pulm edema. R pleural effusion. Versus 2018, R lung base consolidation versus mass. On dobutamine at 5 mcg/kg/min the patient has no blood pressure 87/37, will titrate up levophed. Due to patient's critically ill condition, need for hemodialysis, potential need for cardiac catheterization I did feel transfer to closest tertiary care center was appropriate. Case discussed with Critical Care team at [facility] and patient accepted in transfer to Dr Gill's service. Lab Data Lab results reviewed: Yes I reviewed the patient's lab results. Labs: Laboratory Results - last 24 hr 01/28/20 01/28/20 01/28/20 11:03 11:03 11:10 WBC 4.17 L RBC 2.93 L Hgb 9.5 L Hct 28.5 L MCV 97.3 H MCH 32.4 MCHC 33.3 RDW 16.4 H Plt Count 88 L MPV 12.9 H Immature Gran % 0.2 Neutrophils % 46.5 Lymphocytes % 37.4 Monocytes % 14.4 Eosinophils % 1.0 Basophils % 0.5 Nucleated RBC % 0 Absolute Neutrophils 1.94 Absolute Lymphocytes 1.56 Absolute Monocytes 0.60 Absolute Eosinophils 0.04 Absolute Basophils 0.02 RBC Morphology Normal PT 45.0 H INR 4.7 H* ABG Sample Site ABG pH ABG pCO2 ABG pO2 ABG HCO3 ABG O2 Saturation ABG Base Excess Oxygen Liter Flow Sodium 140 Potassium 2.8 L* Chloride 103 Carbon Dioxide 29.2 Anion Gap 7.8 BUN 11 Creatinine 1.99 H Estimated GFR/1.73 m2 32.66 Glucose 82 Calcium 7.4 L Magnesium 1.7 L Total Bilirubin 1.0 AST 49 H ALT 34 Alkaline Phosphatase 240 H Troponin I < 0.05 Total Protein 5.8 L Albumin 2.2 L 01/28/20 01/28/20 11:11 11:42 WBC RBC Hgb Hct MCV MCH MCHC RDW Plt Count MPV Immature Gran % Neutrophils % Lymphocytes % Monocytes % Eosinophils % Basophils % Nucleated RBC % Absolute Neutrophils Absolute Lymphocytes Absolute Monocytes Absolute Eosinophils Absolute Basophils RBC Morphology PT INR ABG Sample Site Left radial ABG pH 7.64 H* ABG pCO2 28 L ABG pO2 146 H ABG HCO3 30 H ABG O2 Saturation > 99 H ABG Base Excess 9 H Oxygen Liter Flow 3 Sodium Cancelled Potassium Cancelled Chloride Cancelled Carbon Dioxide Cancelled Anion Gap Cancelled BUN Cancelled Creatinine Cancelled Estimated GFR/1.73 m2 Cancelled Glucose Cancelled Calcium Cancelled Magnesium Total Bilirubin Cancelled AST Cancelled ALT Cancelled Alkaline Phosphatase Cancelled Troponin I Cancelled Total Protein Cancelled Albumin Cancelled HPI General Mode of arrival: EMS. Date/Time Provider Initiated Documentation: 01/28/20 11:12. Limitations to Documentation: no limitations. Information obtained by: patient and EMS. History of Present Illness 79 year old M presents to the emergency department with the chief complaint of Chest pain after dialysis, described as severe, Quality is described as dull and constant, and is localized to the chest. Patient reports no radiation. Patient started experiencing this minute(s) and it has been constant. No relieving factors improve symptom(s), No exacerbating factors reported . Patient notes chest pain and shortness of breath; denies syncope. Patient did receive the following treatments prior to arrival, other (1600 cc fluids) Related Data Home Medications Medication Instructions Recorded Confirmed aspirin [Aspirin Low-Strength] 81 mg PO DAILY AM 07/17/17 01/28/20 cholecalciferol (vitamin D3) 1,000 udtab PO DAILY 07/17/17 01/28/20 [Vitamin D3] atorvastatin 40 mg PO QPM 05/02/18 01/28/20 torsemide 20 mg PO .M/W/05/02/18 01/28/20 warfarin 5 mg PO .M/W/F 06/05/18 01/28/20 lactobacillus combo #5 150 mg PO .WITH MEALS 09/21/18 01/28/20 midodrine 10 mg PO BID 09/21/18 01/28/20 spironolactone 25 mg PO .M/W/F 09/21/18 01/28/20 B complex-vitamin C-folic acid 1 tab PO DAILY 01/28/20 01/28/20 [Renal Multivitamin Formula] sevelamer carbonate 800 mg PO QID 01/28/20 01/28/20 warfarin 2.5 mg PO .//SA/JACQUES 01/28/20 01/28/20 Allergies Allergy/AdvReac Type Severity Reaction Status Date / Time No Known Allergies Allergy Unverified 12/30/18 19:05 General Stated Complaint: Chest Pain JOHAN: 2 Review of Systems Narrative: Denies syncope. States he has been well. Had normal dialysis run, then developed tachycardia and hypotension to 80/40, given 1600 cc fluid by dialysis and EMS. Recent decrease in midodrine rfom TID to BID PFSH Medical History (Updated 01/28/20 @ 12:32 by Jay Cisse MD) Diabetes ESRD (end stage renal disease) on dialysis GERD (gastroesophageal reflux disease) HTN (hypertension) Surgical procedures, elective Removal of temporary dialysis catheter/port by Dr Eric Rivera, [facility] Surgical History H/O aortic valve replacement History of cataract surgery History of nephrectomy Social History Smoking/Tobacco Use Status: Former Tobacco Use Alcohol Intake: never Drug use: Never Substance use type: does not use Do you feel safe at home: Yes Do you feel safe in your relationship?: Yes Exam Narrative Exam Narrative: GEN: awake, alert, oriented 3. Pale and diaphoretic HEAD: Normocephalic, atraumatic ENT: Mucous membranes moist, oropharynx unremarkable, External ear exam unremarkable EYES: PERRL, EOMI NECK: Full ROM, no VICTORINA, no menigismus CHEST/RESP: Nontender, clear to auscultation bilateral, no wheeze/rhonchi/rales CARDIOVASCULAR: IRREGULARLY IRREGULAR, tachycardic. Weak palpable rad pulse bilateral ABDOMEN: Soft, nontender, no mass. +Bowel sounds EXT: Full ROM, left upper extremity AV fistula with thrill. Neuro: Grossly normal neurologic exam, conversant, interactive. Psych: Speech fluent, thoughts congruent, affect normal Course Vital Signs Vital signs: Vital Signs Temperature 35.9 C L 01/28/20 11:07 Pulse 89 01/28/20 11:07 Respiratory Rate 19 01/28/20 11:07 Blood Pressure 73/39 L 01/28/20 11:07 Pulse Oximetry 96 01/28/20 11:07 Temperature 35.9 C L 01/28/20 11:07 Temperature Source Temporal Artery Scan 01/28/20 11:07 Pulse 89 01/28/20 11:07 Respiratory Rate 19 01/28/20 11:07 Respiratory Effort 01/28/20 11:15 Blood Pressure 73/39 L 01/28/20 11:07 Blood Pressure Position Supine 01/28/20 11:07 Pulse Oximetry 96 01/28/20 11:07 Oxygen Delivery Method Nasal Cannula 01/28/20 11:07 Oxygen Flow Rate 2 01/28/20 11:07 Pain Level 5 01/28/20 11:07 Lab/Test Results Lab/Test Results: Laboratory Tests Range/Units 01/28/20 11:11 Sodium Cancelled Potassium Cancelled Chloride Cancelled Carbon Dioxide Cancelled Anion Gap Cancelled BUN Cancelled Creatinine Cancelled Estimated GFR/1.73 m2 Cancelled Glucose Cancelled Calcium Cancelled Total Bilirubin Cancelled AST Cancelled ALT Cancelled Alkaline Phosphatase Cancelled Troponin I Cancelled Total Protein Cancelled Albumin Cancelled Critical Care Time Critical Care Time Critical Care Time: Yes Total Critical Care Time: 60 Attestation: Bedside management, review of records, discussion with consultants team, discussion with family.
--- NOTE | 2020-01-28 11:30 | DI.CT_ITS ---
EXAM: CT CHEST PE CTA CLINICAL HISTORY: chest pain TECHNIQUE: COMPARISON: CT ABD PELVIS WO CONTRAST from 10/06/2017 FINDINGS: CT angiography of the chest was performed with bolus infusion of 100 cc of Omnipaque 350. Images obtained through the upper at abdomen show unremarkable appearance of visualized portions of l iver, spleen, and pancreas. 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 There is no evidence of pulmonary embolic disease. There is mild cardiac enlargement. There is no mediastinal or hilar adenopathy. There is a large right pleural effusion. There is no left pleural effusion. There are areas of atel ectasis at the right lung base. Additionally there is a rounded area consolidation versus mass seen in the right lower lobe posteriorly. This was not present on prior abdominal CT of September 2017. Addit ional possible area of consolidation and/or atelectasis noted anteriorly at the right lung base. There is no evidence of pulmonary interstitial edema. IMPRESSION: No evidence of pulmonary embolic disease. Large right pleural effusion, this has been present on prior examinations, question interval developm ent right basilar consolidation versus mass. Follow-up chest CT requested following treatment. RADIATION DOSE DELIVERED: 357.3mGy.cm Total DLP
[2020-01-28] MEDS: DOBUTamine 500 MG/250 ML BAG IV (11:34)
[2020-01-28 11:35] LABS: ALT 34 U/L (16-63); AST 49 U/L (15-37); Albumin 2.2 g/dL (3.4-5.0); Alkaline Phosphatase 240 U/L (46-116); Anion Gap 7.8 mmol/L (3-11); BUN 11 mg/dL (7-18); CO2 29.2 mmol/L (21.0-32.0); CREATININE 1.99 mg/dL (0.70-1.30); Calcium 7.4 mg/dL (8.5-10.1); Chloride 103 mmol/L (98-107); Estimated GFR 32.66 (mL/min/1.73m2); Glucose 82 mg/dL (74-106); Magnesium 1.7 mg/dL (1.8-2.4); Sodium 140 mmol/L (136-145); Total Protein 5.8 g/dL (6.4-8.2); Troponin I < 0.05 ng/mL (<0.06)
[2020-01-28 11:35] LABS: Diff Comment Diff Reviewed; Platelet Count 88 10^3/uL (130-400); RBC Morphology Normal
[2020-01-28 11:36] LABS: Potassium 2.8 mmol/L (3.5-5.1)
[2020-01-28] MEDS: Midodrine 2.5 MG TAB 5 MG PO (11:40)
[2020-01-28] MEDS: POTASSIUM CHLORIDE 20 MEQ/100 ML BAG 50 MEQ IVPB (11:40)
[2020-01-28 11:45] LABS: BE 9 mmol/L (-2-3); HCO3 30 mmol/L (22-26); pCO2 28 mmHg (35-45); pO2 146 mmHg (80-105)
[2020-01-28 11:49] LABS: FIO2L 3 L; Site Left Radial; pH 7.64 (7.35-7.45); sO2 > 99 % (95-98)
[2020-01-28 11:49] LABS: INR 4.7 (0.9-1.1)
[2020-01-28] MEDS: Omnipaque 350 MG/ML 100 ML BTL IJ (12:08)
[2020-01-28] MEDS: Normal Saline - Diluent 50 ML VIAL IV (12:09)
[2020-01-28] MEDS: fentaNYL 100 MCG/2 ML VIAL 12.5 MCG IVP ×2 (12:10→12:59)
[2020-01-28] MEDS: Aspirin 81 MG CHEW 162 MG PO (12:16)
--- NOTE | 2020-01-28 13:32 | NUR.NOTE ---
Nursing Note: 13:20. PT care transferred to (Alpesh) [facility] store leader. At the time of transfer the Pt is alert and oriented vitals stable. All medications and infusions rates verified prior to [place] departure. At this time 13:34, Pt care report transferred to [place] (RN) at [facility] [place]. All treatment, medications, and interventions provided to receiving nursing staff at this time.
--- NOTE | 2020-01-28 13:41 | NUR.NOTE ---
Nursing Note: [place] hotline notifed that patient was transferred to [facility]. For chest pain, hypotension. They will call back when an agent is available. Lola Mcdaniels
== END 2020-01-28 13:12 | disposition short-term general hospital (02) ==
PROVIDERS: Emergency Provider Emergency Medicine; PCP Internal Medicine
DX: R07.89 Other chest pain (principal); I95.9 Hypotension, unspecified; R94.31 Abnormal electrocardiogram [ECG] [EKG]; E87.6 Hypokalemia; R00.0 Tachycardia, unspecified; E11.22 Type 2 diabetes mellitus with diabetic chronic kidney disease; I12.0 Hypertensive chronic kidney disease with stage 5 chronic kidney disease or end stage renal disease; N18.6 End stage renal disease; Z99.2 Dependence on renal dialysis; I48.91 Unspecified atrial fibrillation; Z79.01 Long term (current) use of anticoagulants; I25.10 Atherosclerotic heart disease of native coronary artery without angina pectoris; Z95.5 Presence of coronary angioplasty implant and graft; Z95.1 Presence of aortocoronary bypass graft; Z95.2 Presence of prosthetic heart valve
CPT/HCPCS: 36415; 71275; 80053; 82805; 93005; 96365; 96366; 96375; 96376; 99291; 36600; 71045; 83735; 84484; 85025; 85610; 93010; J3010; J3480; J3490

== ENCOUNTER 2020-08-19 13:00 | Outpatient (RCR) | payer MEDICARE, BC, SELFPAY ==
--- OUTSIDE RECORDS SUMMARY | 2020-07-26 15:31 | XMS_ITS ---
:1940 Author Organization [facility], [place] DOCUMENT DISCLAIMER The information in the [facility] Continuity of Care Document represents a summary of certain health and medical information. It may not contain the complete medical history for the patient and should be independently verified. The represented time in the document is Eastern Time. 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 Active Sep origin Iron deficiency anemia, unspecified D50.9 Active September 20, 2017 Anemia in chronic kidney disease D63.1 Active September 20, 2017 Coagulation defect, unspecified D68.9 Active September 20, 2017 Encounter for immunization Z23 Active September 20, 2017 Encounter for screening for respiratory tuberculosis Z11.1 Active Sep Pure hypercholesterolemia, E78.00 Active September 20 018 unspecified 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, 2017 Malignant neoplasm of unspecified kidney, except C64.9 Active September 20, 2017 renal 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 Active 2017 kidney disease Rheumatic aortic valve disease, 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 Active September 20 18 Unspecified cirrhosis of liver K74.60 Active September 20, 2017 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 Active September 20, 2017 artery without angina pectoris Essential (primary) hypertension I10 Active September 20, 2017 Acute kidney failure, unspecified N17.9 Active September 20, 2017 ALLERGIES AND ADVERSE REACTIONS No Known Allergies SOCIAL HISTORY General Item Value Smoking Status Unknown if ever smoked Caregiver Characteristics No Information Available Characteristics of Home environment No Information Available MEDICATIONS Prescribed Medications for Dialysis Treatments Medication Instructions Dosage Route Start Date End Date Statu s Every Active Iron Sucrose Treatment Intravenous - June (Venofer) 100 mg push 2020July 23, 2020 During Oral Active Loperamide Dialysis, PRN June diarrhea 2 mg 2020July 04, 2021 Every 2 Active Mircera weeks Intravenous - July 150 mcg push 2020July 22, 2021 Every Iron Sucrose Treatment Intravenous - Dis continued (Venofer) 100 mg push June 04, 2020 June 25, 2020 Every 2 Mircera weeks Intravenous - June Discon tinued 200 mcg push 2020June 24, 2021 Home Medications Medication Instructions Dosage Route Start Date End Statu s Date atorvastatin 40 mg Take by mouth every 2 ORAL April evening as tablet 2020 Active directed carvedilol 3.125 mg Take by mouth twice a 1 ORAL January day as directed tablet 2019 Acti ve cholecalciferol Take by (vitamin D3) 25 mcg mouth once a day 1 ORAL September (1,000 unit) as directed tablet 2017 Activ e ipratropium bromide [place] into 21 mcg (0.03 %) both nostrils NASAL April once a day as 2020 Active directed isosorbide Take by mononitrate 30 mg mouth once a day 1/2 ORAL tablet May Lactobacillus Take by acidophilus 100 mg mouth three 1 ORAL (1 billion cell) times a day with capsule March Active meals 2018 lidocaine-prilocain Apply to e 2.5-2.5% skin three times TOPICAL a week February Nitrostat 0[address] under tongue as 1 SUBLINGUAL January directed as tablet 2019 Active needed for pain omeprazole 40 mg Take by mouth once a day 1 ORAL capsule May Plavix 75 mg Take by mouth once a day 1 ORAL as directed tablet May renal vitamin Take as directed 1 as directed tablet February sevelamer carbonate Take by 800 mg mouth three 1 ORAL April times a day with tablet 2020 Act waylon meals torsemide 20 mg Take by mouth once a day 1 ORAL April as directed tablet 2020 Active tums 500mg Take by mouth three 1 by mouth times a day tablet May warfarin 2.5 mg Take by mouth once a day 1 ORAL as directed tablet March VITAL SIGNS Post-Treatment Vital Signs Vital Sign Value Date / Time Blood Pressure-sitting 114/44 mmHg July 26, 2020 06 :11 AM Blood Pressure-standing 106/54 mmHg July 26, 2020 0 6:11 AM Heart Rate 65 beats per minute July 26, 2020 06:11 AM Respiratory Rate 15 breaths per minute July 26, 2020 06: 11 AM Temperature 97.2 deg. F July 26, 2020 06:11 AM Weight Vital Sign Value Date / Time Estimated Dry Weight 73 kg July 05, 2020 11:5 9 PM Pre-Dialysis 75.20 kg July 26, 2020 06:11 AM Post-Dialysis 72.80 kg July 26, 2020 06:11 AM Other Other Value Date / Time Height 180.3 cm September 20, 2017 12:00 AM Body Mass Index 22.99 kg/m2 June 30, 2020 01:30 PM LAB RESULTS Hematology Result Type Result Value Relevant Interpretation Date Reference Range Transferrin Sat. 23 % 20-55% - June 28, (Calc) 2020 TIBC (Calc) 200 mcg/dL 185-515 mcg/dL - June 28, 2020 UIBC 155 mcg/dL 155-355 mcg/dL - June 28, 2020 Iron 45 mcg/dL Females: 30-160 - June 28, mcg/dL Males: 2020 45-160 mcg/dL PT 25.9 sec No reference High June 28, range provided 2020 RBC 3.08 mill/mcL Males: 4.70 - Low June 28, 6.10 mill/mcL 2020 Females: 4.20 - 5.40 mill/mcL HGB 9.8 g/dL Males: 14.0 - Low June 28, 18.0 g/dL 2020 Females: 12.0 - 16.0 g/dL HCT 31.1 % Males: 42 - 52% Low June 28, Females: 37 - 47% 2020 Ferritin 373 ng/mL Males: 22 - 322 High June 28, ng/mL; Females: 2020 10 - 291 ng/mL WBC (No Diff) 4.19 1000/mcL 4.8-10.8 Low June 28 thous/mcL 2020 HGB 10.0 g/dL Males: 14.0 - Low June 16, 18.0 g/dL 2020 Females: 12.0 - 16.0 g/dL HGB 10.4 g/dL Males: 14.0 - Low July 12, 18.0 g/dL 2020 Females: 12.0 - 16.0 g/dL HGB 10.7 g/dL Males: 14.0 - Low July 19, 18.0 g/dL 2020 Females: 12.0 - 16.0 g/dL Metabolic/Renal Result Type Result Value Relevant Interpretation Date Reference Range BUN, Post 12 mg/dL 6-19 mg/dL - June 28, 2020 Hemoglobin A1c 5.3 % 4.8-5.9% - June 28, 2020 BUN 54 mg/dL 6-19 mg/dl High June 28, 2020 URR, Calc 78 % 65 - 80% - June 28, 2020 Bicarbonate 25 mEq/L 22-29 mEq/L - June 28, 2020 Chloride 104 mEq/L 96-108 mEq/L - June 28, 2020 Potassium 3.5 mEq/L 3.5-5.1 mEq/L - June 28, 2020 Sodium 143 mEq/L 136-145 mEq/L - June 28, 2020 Bone/Mineral Result Type Result Value Relevant Interpretation Date Reference Range PTH-Intact, Plasma 370 pg/mL 16 to 80 pg/mL High June Calcium, Total 7.9 mg/dL 8.4-10.2 mg/dL Low June 28, 2020 Alkaline 307 U/L Males: 40-129 High June 28, Phosphatase U/L, > 15 yrs 2020 Females: 35 - 104 U/L, > 15 yrs Ca x P Product 36 < 55 - June 28, 2020 Phosphorus 4.6 mg/dL 2.6-4.5 mg/dL High June 28, 2020 Liver/Nutrition Result Type Result Value Relevant Reference Interpretation Date Range Albumin (BCG) 2.5 g/dL 3.5-5.2 g/dL Low June 28, 2020 Lipid Result Type Result Value Relevant Reference Interpretation Date Range Cholesterol, 108 mg/dL < 200 mg/dL: - June 28, Total Desirable 803-823 5312 mg/dL: Borderline >= 240 mg/dL: High Risk Infectious Diseases Result Type Result Value Relevant Interpretation Date Reference Range HCV Ab Nonreactive Non-Reactive - May 05, (anti-HCV) 2020 Hep B Surface Negative Negative - June 28, 2020 Ag (HBsAg) Hep B Surface > 1000 mIU/mL < 10 mIU/mL, - June 28 Ab (anti-HBs) Non- Immune DIALYSIS PRESCRIPTION Conventional Hemodialysis Data Element Value Order Date/Time July 05, 2020 Frequency 3X Week Treatment Days TueThuSat Dialyzer [id number] Optiflux Treatment Time (Total Minutes) 240 min Blood Flow Rate (mL/min) 400 mL/min Dialysate Flow Rate Autoflow 1.5 Estimated Dry Weight 73 kg Dialysate Concentrate 3.0 K, 2.5 Ca, 1.0 Mg, 100 D extrose (G3251) Sodium (mEq/L) 137 meq/L Bicarb Machine Setting (mEq/L) 35 meq/L Dialysis Access Hemodialysis-AV Graft-Synthe tic - Standard (PTFE), Left Upper Arm, Other/Unknown Access Placed on January Arterial Needle Size 15g1 Venous Needle Size 15g1 IMMUNIZATIONS Vaccine Date Dose Route Status Hepatitis B June 03, Intramuscular Compl eted vaccine 2018 40.0 mcg influenza, high January 06, Intramuscular Completed dose 2019 0.7 mL Hepatitis B May 31, Intramuscular Compl eted vaccine 2020 40.0 mcg ADVANCE DIRECTIVES Directive Description Ordered By Effective Date Resuscitation status Full Code David Andresubaldo May 05 DIALYSIS TREATMENTS Conventional Hemodialysis Date Pre-Treatment Post-Treatment Duration BFR Dialysate Dialyzer Dialysis Meds Vitals Vitals (hr) (mL/min) Access Admin July Weight 74.70 Weight 72.60 04:03:00 400 3.0 K, 180nre Hemodial ysis-AV Graft-Synthetic - Standard (PTFE), Left Upper Arm, Other/Unknown Iron Sucrose (Venofer); 100mg,Intravenous - push 01, kg kg 2.5 Ca, Optiflux Access Placed on February 14, 20182020 1.0 Mg, 100 Dextrose (G3251) Blood Pressure-sitting 99/47 mmHg Blood Pressure-sitting 10 6/38 mmHg Blood Pressure-standing 105/51 mmHg Blood Pressure-standing 104/43 mmHg Heart Rate 69 beats per Heart Rate 61 beats per minute minute Respiratory Rate 15 breaths per Respiratory Rate 12 breaths per minute minute Temperature 97.2 deg. F Temperature 97.8 deg. F July Weight 74.60 Weight 72.20 04:02:00 400 3.0 K, 180nre Hemodial ysis-AV Graft-Synthetic - Standard (PTFE), Left Upper Arm, Other/Unknown Iron Sucrose (Venofer); 100mg,Intravenous - push 03, kg kg 2.5 Ca, Optiflux Access Placed on February 14, 2018 Mircera; 150mcg,Intravenous - push 2020 1.0 Mg, 100 Dextrose (G3251) Blood Pressure-sitting 95/48 mmHg Blood Pressure-sitting 11 9/55 mmHg Blood Pressure-standing 105/47 mmHg Blood Pressure-standing 104/57 mmHg Heart Rate 54 beats per Heart Rate 48 beats per minute minute Respiratory Rate 15 breaths per Respiratory Rate 15 breaths per minute minute Temperature 97.2 deg. F Temperature 97.4 deg. F July Weight 75.20 Weight 72.80 04:04:00 400 3.0 K, 180nre Hemodial ysis-AV Graft-Synthetic - Standard (PTFE), Left Upper Arm, Other/Unknown - 06, kg kg 2.5 Ca, Optiflux Access Placed on February 14, 20182020 1.0 Mg, 100 Dextrose (G3251) Blood Pressure-sitting 106/44 mmHg Blood Pressure-sitting 11 4/44 mmHg Heart Rate 58 beats per Blood Pressure-standing 106/54 m mHg minute Respiratory Rate 15 breaths per Heart Rate 65 beats per minute minute Temperature 97.2 deg. F Respiratory Rate 15 breaths per minute - - Temperature 97.2 deg. F
== END 2020-08-19 23:59 | disposition home or self-care (01) ==
LOC: CR 13:00
PROVIDERS: PCP Internal Medicine; Visit Provider Family Medicine
DX: I25.2 Old myocardial infarction (principal); Z51.89 Encounter for other specified aftercare; N18.6 End stage renal disease; Z99.2 Dependence on renal dialysis
CPT/HCPCS: S9472

== ENCOUNTER 2020-09-16 13:00 | Outpatient (RCR) | payer MEDICARE, BC, SELFPAY | END 2020-09-19 23:59 | disposition home or self-care (01) | LOC: CR 13:00 | PROVIDERS: PCP Internal Medicine; Visit Provider Family Medicine | DX: Z51.89 Encounter for other specified aftercare (principal); I25.2 Old myocardial infarction | CPT/HCPCS: S9472 ==

== ENCOUNTER 2020-10-19 13:00 | Outpatient (RCR) | payer MEDICARE, BC, SELFPAY | END 2020-10-19 23:59 | disposition home or self-care (01) | LOC: CR 13:00 | PROVIDERS: PCP Internal Medicine; Visit Provider Family Medicine | DX: Z51.89 Encounter for other specified aftercare (principal); I25.2 Old myocardial infarction | CPT/HCPCS: S9472 ==

== ENCOUNTER 2020-10-21 13:00 | Outpatient (RCR) | payer MEDICARE, BC, SELFPAY | END 2020-11-19 23:59 | disposition home or self-care (01) | LOC: CR 13:00 | PROVIDERS: PCP Internal Medicine; Visit Provider Family Medicine | DX: Z51.89 Encounter for other specified aftercare (principal); I25.2 Old myocardial infarction | CPT/HCPCS: S9472 ==

== ENCOUNTER 2020-12-14 08:15 | Emergency (ER) | payer OTHER, SELFPAY ==
[2020-12-14 08:20] VITALS: BP 107/74; PULSE 93; RESP 16; TEMP 36.4; O2SAT 100
--- NOTE | 2020-12-14 08:21 | ED.GENADUL_ITS ---
Discharge Plan Discharge Details Chief Complaint: Epistaxis Primary Care Provider: Chris Phillips ED Provider: Chris Allan Home Meds and New Rx's Prescriptions: No Action aspirin [Aspirin Low-Strength] 81 MG tablet,chewable 81 mg PO DAILY AM RF: 0 cholecalciferol (vitamin D3) [Vitamin D3] 1,000 UNIT capsule 1,000 udtab PO DAILY RF: 0 atorvastatin 40 mg Tablet 40 mg PO QPM RF: 0 torsemide 10 mg Tablet 20 mg PO ./ RF: 0 warfarin 2.5 mg Tablet 5 mg PO ./ RF: 0 spironolactone 25 mg Tablet 25 mg PO ./ RF: 0 midodrine 10 mg Tablet 10 mg PO BID RF: 0 lactobacillus combo #5 150 mg (2 billion cell) Tablet,Delayed Release (Dr/Ec) 150 mg PO .WITH MEALS RF: 0 warfarin 2.5 mg Tablet 2.5 mg PO ./// RF: 0 Renal Multivitamin Formula 0.8 mg Tablet 1 tab PO DAILY RF: 0 sevelamer carbonate 800 mg tablet 800 mg PO QID RF: 0 Medical Decision Making Differential Diagnosis Differential Diagnosis: anterior epistaxis, posterior epistaxis HPI General Mode of arrival: ambulatory . Date/Time Provider Initiated Documentation: 12/14/20 08:17 . Limitations to Documentation: no limitations . Information obtained by: patient . History of Present Illness 80 year old M presents to the emergency department with the chief complaint of nose bleed, described as moderate, and it has been constant. No relieving factors improve symptom(s), No exacerbating factors reported . Patient notes no other symptoms.. Related Data Home Medications Medication Instructions Recorded Confirmed aspirin [Aspirin Low-Strength] 81 mg PO DAILY AM 07/17/17 01/28/20 cholecalciferol (vitamin D3) 1,000 udtab PO DAILY 07/17/17 01/28/20 [Vitamin D3] atorvastatin 40 mg PO QPM 05/02/18 01/28/20 torsemide 20 mg PO .//05/02/18 01/28/20 warfarin 5 mg PO .//06/05/18 01/28/20 lactobacillus combo #5 150 mg PO .WITH MEALS 09/21/18 01/28/20 midodrine 10 mg PO BID 09/21/18 01/28/20 spironolactone 25 mg PO .M/W/F 09/21/18 01/28/20 B complex-vitamin C-folic acid 1 tab PO DAILY 01/28/20 01/28/20 [Renal Multivitamin Formula] sevelamer carbonate 800 mg PO QID 01/28/20 01/28/20 warfarin 2.5 mg PO .//SA/JACQUES 01/28/20 01/28/20 Allergies Allergy/AdvReac Type Severity Reaction Status Date / Time No Known Allergies Allergy Unverified 12/30/18 19:05 General JOHAN: 2 Review of Systems All systems reviewed & are unremarkable except as noted in HPI and below Constitutional Constitutional: Denies chills, Denies fever(s) and Denies weakness Cardiovascular Cardiovascular: Denies chest pain and Denies dyspnea Respiratory Respiratory: Denies cough and Denies dyspnea Gastrointestinal Gastrointestinal: Denies abdominal pain, Denies nausea and Denies vomiting Musculoskeletal Musculoskeletal: Denies joint swelling Neurologic Neurologic: Denies weakness [facility] Medical History (Updated 02/28/20 @ 00:02 by YOEL BERMUDEZ) Diabetes ESRD (end stage renal disease) on dialysis GERD (gastroesophageal reflux disease) HTN (hypertension) Surgical procedures, elective Removal of temporary dialysis catheter/port by Dr Eric Rivera, [facility] Surgical History H/O aortic valve replacement History of cataract surgery History of nephrectomy Social History Smoking/Tobacco Use Status: Former Tobacco Use Smoking risk assessment performed?: Yes Alcohol Intake: never Drug use: Never Substance use type: does not use Do you feel safe at home: Yes Do you feel safe in your relationship?: Yes Exam Const General: no acute distress Orientation: alert HENMT Head: normal to inspection Ears: external ears normal General nose exam: epistaxis Mouth: moist mucous membranes Eyes General: appearance normal, both eyes and all related structures Neck Neck: normal visual inspection Resp Effort & Inspection: normal respiratory effort and able to speak in complete sentences Cardio Rate: regular rate Skin General skin exam: no rashes or lesions noted Neuro General: patient alert and patient oriented x3 Extrem General: normal to inspection Psych Mental Status: mental status grossly normal
[2020-12-14] MEDS: Normal Saline Flush 10 ML SYR IVP (08:40)
[2020-12-14 08:49] LABS: Abs Immature Grans 0.01 10^3/uL (0.0-0.06); Absolute Basophil Count 0.03 10^3/uL (0.0-0.2); Absolute Eosinophil Count 0.01 10^3/uL (0.0-0.7); Absolute Lymphocyte Count 0.84 10^3/uL (1.2-3.4); Absolute Monocyte Count 0.52 10^3/uL (0.1-0.8); Absolute Neutrophil Count 3.42 10^3/uL (1.2-6.7); Basophils % 0.6; Eosinophils % 0.2; HCT 34.1 % (40.0-50.0); HGB 11.2 g/dL (13.5-17.5); Immature Grans % 0.2; Lymphocytes % 17.4; MCHC 32.8 % (32.0-36.0); MCV 100.6 fL (80-95); MPV 12.6 fL (8.0-11.0); Monocytes % 10.8; Neutrophils % 70.8; Nucleated RBC 0 %; Platelet Count 102 10^3/uL (130-400); RBC 3.39 10^6/uL (4.36-5.78); RDW 15.5 % (11.8-14.1); RDW-SD 57.3 fL; WBC 4.83 10^3/uL (4.4-10.8)
[2020-12-14 09:03] LABS: Prothrombin Time 43.8 sec (9.3-11.0)
[2020-12-14 09:07] LABS: INR 4.5 (0.9-1.1)
[2020-12-14] MEDS: Gelatin SPONGE 12-7 MM PKT TP (09:15)
[2020-12-14] MEDS: Tranexamic Acid 1,000 MG/10 ML VIAL 500 MG NS (09:15)
[2020-12-14] MEDS: Oxymetazolone 0.05% SPRAY 15 ML BTL NS (09:15)
[2020-12-14 09:21] LABS: ALT 56 U/L (16-63); AST 63 U/L (15-37); Albumin 2.6 g/dL (3.4-5.0); Alkaline Phosphatase 337 U/L (46-116); Anion Gap 6.9 mmol/L (3-11); BUN 36 mg/dL (7-18); Bilirubin, Total 1.2 mg/dL (0.2-1.0); CO2 32.1 mmol/L (21.0-32.0); Calcium 8.7 mg/dL (8.5-10.1); Chloride 100 mmol/L (98-107); Estimated GFR 11.79 (mL/min/1.73m2); Glucose 126 mg/dL (74-106); Potassium 3.4 mmol/L (3.5-5.1); Sodium 139 mmol/L (136-145); Total Protein 7.4 g/dL (6.4-8.2)
[2020-12-14 09:22] LABS: CREATININE 4.8 mg/dL (0.70-1.30)
--- NOTE | 2020-12-14 09:50 | NUR.NOTE ---
Nursing Note: Referral faxed to ENT [facility] for epistaxis, next week. Lola Mcdaniels
--- NOTE | 2020-12-14 09:53 | ED.GENADUL_ITS ---
Discharge Plan Disposition Patient Disposition: HOME Condition: Stable Discharge Details Clinical Impression: Acquired hypercoagulable state, Epistaxis Primary Care Provider: Chris Phillips ED Provider: Naila Delgadillo Home Meds and New Rx's Prescriptions: New cephalexin 500 mg capsule 500 mg PO Q6H 3 Days Qty: 12 RF: 0 Continued aspirin [Aspirin Low-Strength] 81 MG tablet,chewable 81 mg PO DAILY AM RF: 0 cholecalciferol (vitamin D3) [Vitamin D3] 1,000 UNIT capsule 1,000 udtab PO DAILY RF: 0 clopidogrel 75 mg tablet 75 mg PO DAILY RF: 0 ascorbic acid (vitamin C) [Vitamin C] 500 mg Tablet,Chewable 500 mg PO DAILY RF: 0 nitroglycerin 0.4 mg tablet, sublingual 0.4 mg sublingual RF: 0 atorvastatin 40 mg Tablet 40 mg PO QPM RF: 0 torsemide 10 mg Tablet 20 mg PO .// RF: 0 warfarin 2.5 mg Tablet 5 mg PO ./ RF: 0 spironolactone 25 mg Tablet 25 mg PO .// RF: 0 lactobacillus combo #5 150 mg (2 billion cell) Tablet,Delayed Release (Dr/Ec) 150 mg PO .WITH MEALS RF: 0 warfarin 2.5 mg Tablet 2.5 mg PO ./// RF: 0 B complex-vitamin C-folic acid 0.8 mg Tablet 1 tab PO DAILY RF: 0 sevelamer carbonate 800 mg tablet 800 mg PO QID RF: 0 Discharge Instructions Instructions: Nosebleed (ED) Additional Instructions: Skip 1 more day of your Coumadin Have your INR rechecked tomorrow Take the antibiotic as prescribed until the nasal packing is removed, you do not need to continue the antibiotic after the nasal packing has been removed It is recommended to have it removed on Saturday after dialysis should you develop need p worsening pain, persistent bleeding, fever, chills, or with any new complaints, please return to the emergency room Take yogurt daily while on antibiotic You will need to have a repeat INR in 4 to 5 days Referrals: David Gonzalez MD [ [facility] STAFF PHYSICIAN] - Discharge Data Discharge Date/Time-TO BE ENTERED AT DEPARTURE: 12/14/20 10:22 Medical Decision Making Patient with coagulation achieved INR of 4.5, patient's repeat INR ordered tomorrow Hemodynamically stable Stable for discharge home, his blood pressure pill for him at the dialysis patient He will need to return here on Saturday to have the packing removed as ENT is not open He will need a repeat He will skip his Coumadin for 1 additional [address] did place him on Keflex empirically He is aware that this could also affect his INR. He is stable at time of discharge, alert, oriented, of decisional capacity, discharged home in the care of his Patient will continue on his Florastor Supplied with the ENT referral Medical Records Medical records reviewed: Yes I reviewed the patient's medical records. Lab Data Lab results reviewed: Yes I reviewed the patient's lab results. HPI General Mode of arrival: ambulatory . Date/Time Provider Initiated Documentation: 12/14/20 08:17 . Limitations to Documentation: no limitations . HPI Narrative: This 80-year-old gentleman presents with epistaxis persistent intermittently since yesterday. States his INR was 5.7 on Saturday. He is a complicated patient with history of mechanical heart valve, dialysis, hypertension, hyperlipidemia, anticoagulated on Coumadin. He denies any dizziness or weakness. He states his bleeding from the right nare. He states he has a very remote history of similar episode of several years ago that was cauterized. He denies any chest pain, shortness of breath, dizziness this time. He denies any blood in stool. Related Data Home Medications Medication Instructions Recorded Confirmed aspirin [Aspirin Low-Strength] 81 mg PO DAILY AM 07/17/17 12/14/20 cholecalciferol (vitamin D3) 1,000 udtab PO DAILY 07/17/17 12/14/20 [Vitamin D3] atorvastatin 40 mg PO QPM 05/02/18 12/14/20 torsemide 20 mg PO .M/W/F 05/02/18 12/14/20 warfarin 5 mg PO .M/W/F 06/05/18 12/14/20 lactobacillus combo #5 150 mg PO .WITH MEALS 09/21/18 12/14/20 spironolactone 25 mg PO .M/W/F 09/21/18 12/14/20 B complex-vitamin C-folic acid 1 tab PO DAILY 01/28/20 12/14/20 sevelamer carbonate 800 mg PO QID 01/28/20 12/14/20 warfarin 2.5 mg PO .//SA/JACQUES 01/28/20 12/14/20 ascorbic acid (vitamin C) [Vitamin 500 mg PO DAILY 12/14/20 12/14/20 C] cephalexin 500 mg PO Q6H 3 Days #12 cap 12/14/20 clopidogrel 75 mg PO DAILY 12/14/20 12/14/20 nitroglycerin 0.4 mg SUBLINGUAL 12/14/20 Previous Rx's Medication Instructions Recorded cephalexin 500 mg PO Q6H 3 Days #12 cap 12/14/20 Allergies Allergy/AdvReac Type Severity Reaction Status Date / Time No Known Allergies Allergy Unverified 12/14/20 08:27 General Stated Complaint: Epistaxis JOHAN: 3 Review of Systems All systems reviewed & are unremarkable except as noted in HPI and below PFSH Medical History (Updated 12/14/20 @ 09:57 by ALMA Perez) Diabetes ESRD (end stage renal disease) on dialysis GERD (gastroesophageal reflux disease) HTN (hypertension) Surgical procedures, elective Removal of temporary dialysis catheter/port by Dr Eric Rivera, [facility] Surgical History H/O aortic valve replacement History of cataract surgery History of nephrectomy Social History Smoking/Tobacco Use Status: Former Tobacco Use Smoking risk assessment performed?: Yes Alcohol Intake: never Drug use: Never Substance use type: does not use Do you feel safe at home: Yes Do you feel safe in your relationship?: Yes Exam Const General: cooperative and no acute distress HENMT Other: Large amount of clot, epistaxis right nare, perforated anterior septum remote, no blood noted in left nare aside from perforation Minimal blood noted in oropharynx Eyes Sclera: sclerae normal Resp Effort & Inspection: normal respiratory effort Auscultation: clear to auscultation bilaterally Cardio Rate: regular rate Rhythm: regular rhythm Skin General skin exam: no rashes or lesions noted Neuro General: patient alert and patient oriented x3 Course Vital Signs Vital signs: Vital Signs Temperature 36.4 C L 12/14/20 08:20 Pulse 93 H 12/14/20 08:20 Respiratory Rate 16 12/14/20 08:20 Blood Pressure 107/74 12/14/20 08:20 Pulse Oximetry 100 08/25/21 08:20 Temperature 36.4 C L 12/14/20 08:20 Temperature Source Skin 12/14/20 08:20 Pulse 93 H 12/14/20 08:20 Respiratory Rate 16 12/14/20 08:20 Respiratory Effort Non-Labored 12/14/20 08:20 Blood Pressure 107/74 12/14/20 08:20 Blood Pressure Position Sitting 12/14/20 08:20 Pulse Oximetry 100 12/14/20 08:20 Oxygen Delivery Method Room Air 12/14/20 08:20 Oxygen Flow Rate 0 12/14/20 08:20 Pain Level 0 12/14/20 08:20 Lab/Test Results Lab/Test Results: Laboratory Tests Range/Units 12/14/20 12/14/20 12/14/20 08:40 08:40 08:40 WBC (4.4-10.8) 10^3/uL 4.83 RBC (4.36-5.78) 10^6/uL 3.39 L Hgb (13.5-17.5) g/dL 11.2 L Hct (40.0-50.0) % 34.1 L MCV (80-95) fL 100.6 H MCH (27.0-33.0) pg 33.0 MCHC (32.0-36.0) % 32.8 RDW (11.8-14.1) % 15.5 H Plt Count (130-400) 10^3/uL 102 L MPV (8.0-11.0) fL 12.6 H Immature Gran % 0.2 Neutrophils % 70.8 Lymphocytes % 17.4 Monocytes % 10.8 Eosinophils % 0.2 Basophils % 0.6 Nucleated RBC % % 0 Absolute Neutrophils (1.2-6.7) 10^3/uL 3.42 Absolute Lymphocytes (1.2-3.4) 10^3/uL 0.84 L Absolute Monocytes (0.1-0.8) 10^3/uL 0.52 Absolute Eosinophils (0.0-0.7) 10^3/uL 0.01 Absolute Basophils (0.0-0.2) 10^3/uL 0.03 PT (9.3-11.0) sec 43.8 H INR (0.9-1.1) 4.5 H* Sodium (136-145) mmol/L 139 Potassium (3.5-5.1) mmol/L 3.4 L Chloride (98-107) mmol/L 100 Carbon Dioxide (21.0-32.0) mmol/L 32.1 H Anion Gap (3-11) mmol/L 6.9 BUN (7-18) mg/dL 36 H Creatinine (0.70-1.30) mg/dL 4.8 H* Estimated GFR/1.73 m2 (mL/min/1.73m2) 11.79 Glucose (74-106) mg/dL 126 H Calcium (8.5-10.1) mg/dL 8.7 Total Bilirubin (0.2-1.0) mg/dL 1.2 H AST (15-37) U/L 63 H ALT (16-63) U/L 56 Alkaline Phosphatase (46-116) U/L 337 H Total Protein (6.4-8.2) g/dL 7.4 Albumin (3.4-5.0) g/dL 2.6 L Procedures Epistaxis Control Time Out Performed: Yes Nostril: right Nose Prepped With: lidocaine and oxymetazoline Direct Inspection: yes Clots Removed by: blowing nose and suction Cautery Used: none Device Inserted: nasal tampon Device Size: 7 Patient Tolerated Procedure: well
[2020-12-14] MEDS: Cephalexin 500 MG CAP PO (09:54)
[2020-12-14 09:59] VITALS: BP 101/50; PULSE 91; TEMP 36.6; O2SAT 100
== END 2020-12-14 10:22 | disposition home or self-care (01) ==
PROVIDERS: Emergency Provider Physician Assistant; PCP Internal Medicine
DX: R04.0 Epistaxis (principal); R79.1 Abnormal coagulation profile; D68.32 Hemorrhagic disorder due to extrinsic circulating anticoagulants; T45.515A Adverse effect of anticoagulants, initial encounter
CPT/HCPCS: 30901; 80053; 99281; 85025; 85610

== ENCOUNTER 2020-12-17 11:01 | Emergency (ER) | payer OTHER, SELFPAY ==
[2020-12-17 11:14] VITALS: BP 107/54; PULSE 90; RESP 16; TEMP 36.4; O2SAT 100
--- NOTE | 2020-12-17 11:20 | ED.GENADUL_ITS ---
Discharge Plan Disposition Patient Disposition: HOME Condition: Good Discharge Details Clinical Impression: Encounter for removal of nasal packing Primary Care Provider: Chris Phillips ED Provider: Rickey Pastrana Home Meds and New Rx's Prescriptions: Continued aspirin [Aspirin Low-Strength] 81 MG tablet,chewable 81 mg PO DAILY AM RF: 0 cholecalciferol (vitamin D3) [Vitamin D3] 1,000 UNIT capsule 1,000 udtab PO DAILY RF: 0 clopidogrel 75 mg tablet 75 mg PO DAILY RF: 0 ascorbic acid (vitamin C) [Vitamin C] 500 mg Tablet,Chewable 500 mg PO DAILY RF: 0 nitroglycerin 0.4 mg tablet, sublingual 0.4 mg sublingual PRN PRNRF: 0 atorvastatin 40 mg Tablet 40 mg PO QPM RF: 0 torsemide 10 mg Tablet 20 mg PO .// RF: 0 warfarin 2.5 mg Tablet 5 mg PO .// RF: 0 spironolactone 25 mg Tablet 25 mg PO .// RF: 0 lactobacillus combo #5 150 mg (2 billion cell) Tablet,Delayed Release (Dr/Ec) 150 mg PO .WITH MEALS RF: 0 warfarin 2.5 mg Tablet 2.5 mg PO DIRECTED RF: 0 B complex-vitamin C-folic acid 0.8 mg Tablet 1 tab PO DAILY RF: 0 sevelamer carbonate 800 mg tablet 800 mg PO QID RF: 0 No Action calcitriol 0.25 mcg Capsule 0.25 mcg PO QAM RF: 0 Discharge Instructions Instructions: Nosebleed (ED) Additional Instructions: At this time the bleeding has stopped. If you do notice a return of your bleeding please apply the liquid TXA. Onto the cottonball, and then place it into your nose and leave it there for 2 to 3 hours. Please get your INR rechecked at your scheduled appointment on Saturday. Please do not pick at your nose, use a humidifier when you sleep at night. You can gently apply Vaseline to the inside of your nose 2-3 times per day If you notice any worsening of your symptoms, or any new symptoms such as vomiting, diarrhea, fever, chills, shortness of breath, chest pain, numbness, weakness, or fainting , please return immediately to the emergency department for reevaluation. Please follow up with your primary care provider as soon as possible for reassessment and reevaluation. As always, it was a pleasure participating in your medical care today. Referrals: Chris Phillips [Primary Care Provider] - Medical Decision Making This is a pleasant 80-year-old male who presents today for removal of his nasal packing. He had nosebleed a few days ago, he is on Coumadin and Plavix. He denies any bleeding since then. He denies any other complaints. No fever or chills. No other modifying factors. Nasal packing was deflated and then slowly removed, patient tolerated this well. There is no bleeding initially however we kept the patient for continued observation to make sure there is no repeat bleeding. Unfortunately about 10 to 15 minutes later there was a very very small amount of extremely slow ooze. TXA was applied, as well as phenylephrine. He tolerated this well. A nasal clamp was placed. After reassessment 15 minutes later bleeding is improved, clot present although small, patient felt better but he did still have a very very small amount of bruising still. Discussed with the patient options of prolonged observation here or repeat Rhino Rocket, and patient has graciously refused the repeat Rhino Rocket. He states that he would like to go home and continue to watch it. We gave him the nasal clamp again and when he has this and uses it he has no dripping in the posterior oropharynx whatsoever and states that he feels fine. We'll give him a small amount of TXA soaked gauze to go home with if he does need it again. I also made it clear that I'm available to call and discuss his case via phone and he can return for reassessment anytime that he would like. Additionally the patient would like to hold off on retesting his INR as he has a scheduled outpatient lab scheduled for Saturday. He would like to just do it then and not now. Discussed red flags which to return. I have extensively reviewed the treatment plan and discharge instructions with the patient and their family. I have addressed all patient concerns at this time. The patient and family was made aware of what symptoms to monitor for that would warrant a return to the emergency department. Discussed the plan with the patient and family, they demonstrate verbal understanding and agreement with our assessment and plan at this time. The documentation in this chart was dictated using [employer] dictation software. Please excuse any dictation errors. HPI General Date/Time Provider Initiated Documentation: 12/17/20 11:03 . HPI Narrative: This is a pleasant 80-year-old male who presents today for removal of his nasal packing. He had nosebleed a few days ago, he is on Coumadin and Plavix. He denies any bleeding since then. He denies any other complaints. No fever or chills. No other modifying factors. Related Data Home Medications Medication Instructions Recorded Confirmed aspirin [Aspirin Low-Strength] 81 mg PO DAILY AM 07/17/17 12/14/20 cholecalciferol (vitamin D3) 1,000 udtab PO DAILY 07/17/17 12/17/20 [Vitamin D3] atorvastatin 40 mg PO QPM 05/02/18 12/17/20 torsemide 20 mg PO ./W/05/02/18 12/14/20 warfarin 5 mg PO .M/W/06/05/18 12/14/20 lactobacillus combo #5 150 mg PO .WITH MEALS 09/21/18 12/17/20 spironolactone 25 mg PO .M/W/09/21/18 12/14/20 B complex-vitamin C-folic acid 1 tab PO DAILY 01/28/20 12/17/20 sevelamer carbonate 800 mg PO QID 01/28/20 12/17/20 warfarin 2.5 mg PO DIRECTED 01/28/20 12/17/20 ascorbic acid (vitamin C) [Vitamin 500 mg PO DAILY 12/14/20 12/17/20 C] clopidogrel 75 mg PO DAILY 12/14/20 12/17/20 nitroglycerin 0.4 mg SUBLINGUAL PRN PRN 12/14/20 12/17/20 calcitriol 0.25 mcg PO QAM 12/17/20 12/17/20 Allergies Allergy/AdvReac Type Severity Reaction Status Date / Time No Known Allergies Allergy Unverified 12/17/20 11:20 General Stated Complaint: Recheck JOHAN: 4 Review of Systems All systems reviewed & are unremarkable except as noted in HPI and below REPLACED BY [facility] Medical History Diabetes ESRD (end stage renal disease) on dialysis GERD (gastroesophageal reflux disease) HTN (hypertension) Surgical procedures, elective Removal of temporary dialysis catheter/port by Dr Eric Rivera, [facility] Surgical History H/O aortic valve replacement History of cataract surgery History of nephrectomy Social History Smoking/Tobacco Use Status: Former Tobacco Use Smoking risk assessment performed?: Yes Alcohol Intake: never Drug use: Never Substance use type: does not use Do you feel safe at home: Yes Do you feel safe in your relationship?: Yes Exam Narrative Exam Narrative: 1.Const: Well-nourished, Well-developed, appearing stated age 2.Eyes: PERRL, no conjunctival injection, and symmetrical lids. 3.ENT: Atraumatic external nose and ears. Nasal packing in place 4.CVS: +S1/S2, No murmurs or gallops. Peripheral pulses 2+ and equal in all extremities. Brisk capillary refill in all extremities. 5.RESP: Unlabored respiratory effort. Clear to auscultation bilaterally. No wheezes rales or rhonchi 6.GI: Soft, Nontender/Nondistended, No hepatosplenomegaly. No guarding or rebound. 7.MSK: Normocephalic/Atraumatic, Extremities w/o deformity or ttp No cyanosis or clubbing, Normal movement of all extremities 8.Skin: Warm, Dry. No rashes or lesions. 9.Neuro: rip sawyer II-XII grossly intact. Sensation grossly intact, no focal neurologic deficits. 10.Psych: (AAO) x3. Appropriate mood and affect Course Vital Signs Vital signs: Vital Signs Temperature 36.4 C L 12/17/20 11:14 Pulse 90 12/17/20 11:14 Respiratory Rate 16 12/17/20 11:14 Blood Pressure 107/54 L 12/17/20 11:14 Pulse Oximetry 100 12/17/20 11:14 Temperature 36.4 C L 12/17/20 11:14 Temperature Source Skin 12/17/20 11:14 Pulse 90 12/17/20 11:14 Respiratory Rate 16 12/17/20 11:14 Blood Pressure 107/54 L 12/17/20 11:14 Pulse Oximetry 100 12/17/20 11:14 Oxygen Delivery Method Room Air 12/17/20 11:14 Oxygen Flow Rate 0 12/17/20 11:14 Pain Level 0 12/17/20 11:14
[2020-12-17 11:30] VITALS: BP 104/57; PULSE 83; O2SAT 100
[2020-12-17] MEDS: Tranexamic Acid 1,000 MG/10 ML VIAL 500 MG NS (11:30)
[2020-12-17] MEDS: Phenylephrine SPRAY 1% 15 ML BTL NS (11:30)
[2020-12-17 12:09] VITALS: BP 102/58; PULSE 97; RESP 16; O2SAT 98
== END 2020-12-17 12:08 | disposition home or self-care (01) ==
PROVIDERS: Emergency Provider Student in an Organized Health Care Education/Training Program; PCP Internal Medicine
DX: R04.0 Epistaxis (principal); Z79.01 Long term (current) use of anticoagulants
CPT/HCPCS: 30901

== ENCOUNTER 2021-01-14 05:13 | Emergency (ER) | payer MEDICARE, BC, SELFPAY ==
[2021-01-14] VITALS (41 sets, daily range): BP systolic 104–118; BP diastolic 53–73; PULSE 77–118; RESP 20; TEMP 36.9; O2SAT 99–100
--- NOTE | 2021-01-14 05:14 | ED.GENADUL_ITS ---
Discharge Plan Disposition Patient Disposition: HOME Condition: Stable Discharge Details Clinical Impression: Colitis, Liver mass, Lung mass, Gallbladder mass, Renal mass, ESRD (end stage renal disease) on dialysis Primary Care Provider: Chris Phillips ED Provider: Tania Briones Home Meds and New Rx's Prescriptions: New oxycodone 5 mg tablet 5 mg PO Q6H PRN (Reason: pain) Qty: 14 RF: 0 Continued ferrous sulfate 325 mg (65 mg iron) tablet 325 mg PO DAILY RF: 0 clopidogrel 75 mg tablet 75 mg PO DAILY RF: 0 ascorbic acid (vitamin C) [Vitamin C] 500 mg Tablet,Chewable 500 mg PO DAILY RF: 0 nitroglycerin 0.4 mg tablet, sublingual 0.4 mg sublingual PRN PRNRF: 0 sevelamer carbonate 2.4 gram Powder In Packet 2.4 g PO TID RF: 0 atorvastatin 40 mg Tablet 80 mg PO QPM RF: 0 warfarin 2.5 mg Tablet 2.5 mg PO DAILY RF: 0 lactobacillus combo #5 150 mg (2 billion cell) Tablet,Delayed Release (Dr/Ec) 150 mg PO .WITH MEALS RF: 0 B complex-vitamin C-folic acid 0.8 mg Tablet 1 tab PO DAILY RF: 0 calcitriol 0.25 mcg Capsule 0.25 mcg PO QAM RF: 0 Discharge Instructions Instructions: Colitis (ED) Additional Instructions: The cause of your abdominal pain today may be due to the colitis which is an inflammation of your colon noted on the CT scan today. You were given oxycodone for pain. A prescription for oxycodone has been sent electronically to your pharmacy. Take this as needed and directed for pain. There were also other additional findings on your CT scan today including masses in your right lower lung, liver, gallbladder and left kidney. Call Dr. Phillips's office on Saturday morning to discuss these findings and what possible treatment options may be available if desired. Return immediately to the emergency department if you develop any worsening or new concerning symptoms such as fever, persistent vomiting, worsening pain or any other concerns. Discharge Data Discharge Date/Time-TO BE ENTERED AT DEPARTURE: 01/14/21 11:10 Discharge Physician: Tania Briones Medical Decision Making <Danny Taylor MD - Last Filed: 01/14/21 08:02> Patient presenting with constant lower abdominal sharp pain which originally started as cramping pain. No nausea or vomiting. Has not passed any gas tonight. Had diarrhea earlier in the week but nothing now. Previous nephrectomy but denies any other abdominal surgery. Nontender abdomen. Consider obstruction. Doubt ischemia. Due for dialysis this morning and depending on CT finding may not get it so will hold on IV contrast but will give PO. Check labs. Pain control. Labs look pretty good. White count is normal. Lactic acid is normal. Elec trolytes are normal. He has received couple of doses of fentanyl. He tolerated oral contrast. CT scan has been completed and we are waiting read. Patient signed over to oncoming physician, Dr. Briones. Medical Records Medical records reviewed: Yes I reviewed the patient's medical records. Lab Data Lab results reviewed: Yes I reviewed the patient's lab results. <Tania Briones DO - Last Filed: 01/16/21 01:17> 0800 --Case endorsed to follow-up on CT imaging and final disposition. Patient assessed at bedside. He has return of abdominal pain. He is soft with mild distention and tender in the right mid and lower quadrants. Will order another dose of fentanyl. 1000 --CT reviewed and notes: IMPRESSION: 1. 4.9 x 3.2 cm mass in the right lower lobe of the lung. Rule out metastatic disease . 2. 9 x 5 cm mass in the anterior aspect of the right abdomen. This may be a liver mass the. The origin is unclear. Recommend MRI. 3. 3 cm mass in the region of the gallbladder. Possible gallbladder carcinoma or gallstone. 4. Unruptured aneurysm of the ascending aorta 5.2 by 5.1 cm.. 5. Moderate bilateral pleural effusions. . 6. Low-attenuation bowel wall thickening is seen throughout the colon consistent with colitis. Differential diagnosis includes infectious and inflammatory etiologies.. 7. 4 cm mass in the superior aspect of the left kidney 25 Hounsfield units.Recommend MR without and with contrast or CT without and with contrast. MR is preferred for masses under 1.5 cm. Imaging reviewed with patient and . Patient states he was aware of a possible liver mass but not of the masses within the lung, gallbladder and kidney. He does have a history of renal cell carcinoma with L nephrectomy. He states he is not DNR/DNI but is unsure if he would want to pursue aggressive treatment for these findings. He states he would prefer to talk to his PCP Dr. Phillips in [place] about this. Imaging also reviewed with general surgery Dr. Grey --based on review of previous imaging, gallbladder findings may be related to the phase contrast and timing of ct images rather than actual mass or stone. Based on patient's lab work and lack of obvious corresponding findings, does not appear consistent with acute cholecystitis. Patient states he feels much better and would like to go home. Discussed with dialysis and they are able to fit patient in for 12pm today. Discussed that patient's pain may be due to be colitis noted on CT today. We will send patient home with oxycodone. He is advised to call his PCP Dr. Phillips on Saturday for further discussion regarding these findings and whether he has treatment options. Disposition decision made weighing the risks and benefits of hospitalization versus outpatient treatment, the risk for further decompensation, and the patient's wishes. Advised to return here immediately for any worsening or new concerning symptoms. Medical Records Medical records reviewed: Yes I reviewed the patient's medical records. Imaging Data Radiologic Study: Radiologist's impression: CT Abdomen And Pelvis Without Contrast Exam date and time: 01/14/2021 5:31 AM Age: 80 years old Clinical indication: Abdominal pain; Localized; Lower TECHNIQUE: Imaging protocol: Computed tomography of the abdomen and pelvis without contrast. Radiation optimization: All CT scans at this facility use at least one of these dose optimization techniques: automated exposure control; mA and/or kV adjustment per patient size (includes targeted exams where dose is matched to clinical indication); or iterative reconstruction. Other contrast: Oral, [id number], 50; COMPARISON: CT ABD PELVIS WO CONTRAST 10/06/2017 11:30 PM FINDINGS: Lungs: 4.9 x 3.2 cm mass in the right lower lobe of the lung. Pleural spaces: Moderate bilateral pleural effusions. . Heart: There is calcification of the mitral valve annulus. Liver: See Intraperitoneal space finding. Gallbladder and bile ducts: 3 cm mass in the region of the gallbladder.. Pancreas: Pancreatic atrophy Spleen: Normal. No splenomegaly. Adrenal glands: Normal. No mass. Kidneys and ureters: Stable metallic densities associated with the left kidney. Left renal atrophy. 4 cm mass in the superior aspect of the left kidney 25 Hounsfield units.. Stomach and bowel: Low-attenuation bowel wall thickening is seen throughout the colon consistent with colitis. Differential diagnosis includes infectious and inflammatory etiologies.. Appendix: No evidence of appendicitis. Intraperitoneal space: 9 x 5 cm mass in the anterior aspect of the right abdomen. This may be a liver mass the. The origin is unclear. . Mild ascites in the abdomen and pelvis Vasculature: Unruptured aneurysm of the ascending aorta 5.2 by 5.1 cm.. Arteries: Status post aortic valve replacement. Lymph nodes: Unremarkable. No enlarged lymph nodes. Urinary bladder: Unremarkable as visualized. Reproductive: Unremarkable as visualized. Bones/joints: Median sternotomy Soft tissues: Left inguinal hernia contains fluid and fat Other findings: Suboptimal study due to the lack of oral intravenous contrast IMPRESSION: 1. 4.9 x 3.2 cm mass in the right lower lobe of the lung. Rule out metastatic disease . 2. 9 x 5 cm mass in the anterior aspect of the right abdomen. This may be a liver mass the. The origin is unclear. Recommend MRI. 3. 3 cm mass in the region of the gallbladder. Possible gallbladder carcinoma or gallstone. 4. Unruptured aneurysm of the ascending aorta 5.2 by 5.1 cm.. 5. Moderate bilateral pleural effusions. . 6. Low-attenuation bowel wall thickening is seen throughout the colon consistent with colitis. Differential diagnosis includes infectious and inflammatory etiologies.. 7. 4 cm mass in the superior aspect of the left kidney 25 Hounsfield units.Recommend MR without and with contrast or CT without and with contrast. MR is preferred for masses under 1.5 cm. . Lab Data Lab results reviewed: Yes I reviewed the patient's lab results. Labs: Laboratory Tests Range/Units 01/14/21 01/14/21 01/14/21 05:28 05:28 05:28 WBC (4.4-10.8) 10^3/uL 4.46 RBC (4.36-5.78) 10^6/uL 3.02 L Hgb (13.5-17.5) g/dL 10.1 L Hct (40.0-50.0) % 31.2 L MCV (80-95) fL 103.3 H MCH (27.0-33.0) pg 33.4 H MCHC (32.0-36.0) % 32.4 RDW (11.8-14.1) % 16.6 H Plt Count (130-400) 10^3/uL 122 L MPV (8.0-11.0) fL 11.9 H Immature Gran % 0.2 Neutrophils % 68.0 Lymphocytes % 17.7 Monocytes % 12.1 Eosinophils % 1.6 Basophils % 0.4 Nucleated RBC % % 0 Absolute Neutrophils (1.2-6.7) 10^3/uL 3.03 Absolute Lymphocytes (1.2-3.4) 10^3/uL 0.79 L Absolute Monocytes (0.1-0.8) 10^3/uL 0.54 Absolute Eosinophils (0.0-0.7) 10^3/uL 0.07 Absolute Basophils (0.0-0.2) 10^3/uL 0.02 PT (9.3-11.0) sec 36.5 H INR (0.9-1.1) 3.8 H VBG Lactate (0.6-1.4) mmol/L Sodium (136-145) mmol/L 139 Potassium (3.5-5.1) mmol/L 3.5 Chloride (98-107) mmol/L 102 Carbon Dioxide (21.0-32.0) mmol/L 31.0 Anion Gap (3-11) mmol/L 6.0 BUN (7-18) mg/dL 32 H Creatinine (0.70-1.30) mg/dL 5.2 H* Estimated GFR/1.73 m2 (mL/min/1.73m2) 10.75 Glucose (74-106) mg/dL 134 H Calcium (8.5-10.1) mg/dL 8.6 Magnesium (1.8-2.4) mg/dL 2.6 H Total Bilirubin (0.2-1.0) mg/dL 1.2 H AST (15-37) U/L 69 H ALT (16-63) U/L 60 Alkaline Phosphatase (46-116) U/L 353 H Total Protein (6.4-8.2) g/dL 7.0 Albumin (3.4-5.0) g/dL 2.4 L Lipase (73-393) U/L 249 Range/Units 01/14/21 05:54 WBC (4.4-10.8) 10^3/uL RBC (4.36-5.78) 10^6/uL Hgb (13.5-17.5) g/dL Hct (40.0-50.0) % MCV (80-95) fL MCH (27.0-33.0) pg MCHC (32.0-36.0) % RDW (11.8-14.1) % Plt Count (130-400) 10^3/uL MPV (8.0-11.0) fL Immature Gran % Neutrophils % Lymphocytes % Monocytes % Eosinophils % Basophils % Nucleated RBC % % Absolute Neutrophils (1.2-6.7) 10^3/uL Absolute Lymphocytes (1.2-3.4) 10^3/uL Absolute Monocytes (0.1-0.8) 10^3/uL Absolute Eosinophils (0.0-0.7) 10^3/uL Absolute Basophils (0.0-0.2) 10^3/uL PT (9.3-11.0) sec INR (0.9-1.1) VBG Lactate (0.6-1.4) mmol/L 1.4 Sodium (136-145) mmol/L Potassium (3.5-5.1) mmol/L Chloride (98-107) mmol/L Carbon Dioxide (21.0-32.0) mmol/L Anion Gap (3-11) mmol/L BUN (7-18) mg/dL Creatinine (0.70-1.30) mg/dL Estimated GFR/1.73 m2 (mL/min/1.73m2) Glucose (74-106) mg/dL Calcium (8.5-10.1) mg/dL Magnesium (1.8-2.4) mg/dL Total Bilirubin (0.2-1.0) mg/dL AST (15-37) U/L ALT (16-63) U/L Alkaline Phosphatase (46-116) U/L Total Protein (6.4-8.2) g/dL Albumin (3.4-5.0) g/dL Lipase (73-393) U/L HPI <Danny Taylor MD - Last Filed: 01/14/21 08:02> General Mode of arrival: ambulatory . Date/Time Provider Initiated Documentation: 01/14/21 05:13 . Limitations to Documentation: no limitations . Information obtained by: patient, RN notes reviewed and old records reviewed . HPI Narrative: Patient presents with lower abdominal pain which is described as sharp and c onstant. Started out earlier tonight as cramping pain. It is now across the lower abdomen and constant in nature. Slight radiation to the back. No associated nausea or vomiting. Diarrhea earlier in the week but none now. Has not had pain like this previously. Is a dialysis patient due this morning. Does not make significant urine to speak of. Denies fever, chest pain, cough, shortness of breath. Related Data Home Medications Medication Instructions Recorded Confirmed atorvastatin 80 mg PO QPM 05/02/18 01/14/21 warfarin 2.5 mg PO DAILY 06/05/18 01/14/21 lactobacillus combo #5 150 mg PO .WITH MEALS 09/21/18 01/14/21 B complex-vitamin C-folic acid 1 tab PO DAILY 01/28/20 01/14/21 ascorbic acid (vitamin C) [Vitamin 500 mg PO DAILY 12/14/20 01/14/21 C] clopidogrel 75 mg PO DAILY 12/14/20 01/14/21 nitroglycerin 0.4 mg SUBLINGUAL PRN PRN 12/14/20 01/14/21 calcitriol 0.25 mcg PO QAM 12/17/20 01/14/21 ferrous sulfate 325 mg (65 mg 325 mg PO DAILY 01/02/21 01/14/21 iron) tablet oxycodone 5 mg PO Q6H PRN #14 tab 01/14/21 sevelamer carbonate 2.4 g PO TID 01/14/21 01/14/21 Previous Rx's Medication Instructions Recorded oxycodone 5 mg PO Q6H PRN #14 tab 01/14/21 Allergies Allergy/AdvReac Type Severity Reaction Status Date / Time No Known Allergies Allergy Unverified 01/14/21 05:22 General JOHAN: 4 Review of Systems <Danny Taylor MD - Last Filed: 01/14/21 08:02> Narrative: 02/02 Review of Systems completed and is negative except as stated above in HPI (Systems reviewed: Const, Eyes, ENT, Resp, CV, GI, , MSK, Skin, Neuro) PFSH <Danny Taylor MD - Last Filed: 01/14/21 08:02> Medical History Diabetes ESRD (end stage renal disease) on dialysis GERD (gastroesophageal reflux disease) HTN (hypertension) Surgical procedures, elective Removal of temporary dialysis catheter/port by Dr Eric Rivera [facility] Surgical History H/O aortic valve replacement History of cataract surgery History of ear surgery Removal of squamous tumor History of nephrectomy History of tonsillectomy and adenoidectomy Family History Father No problems noted. Mother No problems noted. Sister No problems noted. Brother Heart attack Social History Smoking/Tobacco Use Status: Former Tobacco Use Smoking risk assessment performed?: Yes Alcohol Intake: former Drug use: Never Substance use type: does not use Do you feel safe at home: Yes Do you feel safe in your relationship?: Yes Exam <Danny Taylor MD - Last Filed: 01/14/21 08:02> Narrative Exam Narrative: Const: Thin elderly male in NAD. HEENT: NC/AT. Normal facial exam. Eyes: Normal conjunctiva and sclera. Neck: Supple. Trachea midline. Lungs: Normal respiratory effort. Lungs are clear. Cor: RRR with murmur. Good radial pulses. Tachy. GI: Soft. NT/ND. No guarding or rebound. Neuro: A+O x 3. Normal speech, mentation, gait. Cranial nerves II - XII grossly intact. No gross motor or sensory deficit. Ext: No C/C/E. Graft/fistula LUE with good thrill. Skin: Warm and dry without rash. Sign Out <Danny Taylor MD - Last Filed: 01/14/21 08:02> Sign Out Data: Sign Out Comment: CT abd/pelvis pending Last updated by Danny Taylor MD at 01/14/21 08:03
--- NOTE | 2021-01-14 05:15 | DI.CT_ITS ---
Exam(s) CT ABDOMEN PELVIS WO EXAM: CT ABDOMEN PELVIS WO CLINICAL HISTORY: lower abdominal pain/cramping. TECHNIQUE: Imaging Protocol: Axial computed tomography images with coronal and sagittal reformatted images were created and reviewed CONTRAST MATERIAL: Intravenous: none Oral: None COMPARISON: CT ABD PELVIS WO CONTRAST from 10/06/2017 CT ABD PELVIS WO CONTRAST from 10/06/[address] CHEST PE CTA from 01/28/2020 FINDINGS: VISUALIZED LUNG BASES: Abnormal. There is prominent bilateral gynecomastia again evident. Size of t he loculated right pleural effusion is stable. Right lower lobe mass in the posterior basal segment of the right lower lobe is again noted, possibly neoplastic. Also pleural based density over the rig ht middle lobe is again noted. There is also now a left pleural effusion which was not previously pr esent. This is moderate size and is associated with some volume loss in the basal segments of the le ft lower lobe. Sternotomy wires. Coronary artery calcification in the LAD and circ and circumflex. Enlarged ascending thoracic aorta diameter 5 cm. ABDOMEN: There is increasing ascites in the abdomen and pelvis. LIVER: The liver appears cirrhotic. Subtle density in the anterior aspect of the right hepatic lobe noted, difficult to assess without IV contrast. See below GALLBLADDER/BILIARY: The gallbladder is now abnormal. Contains what is either a mass or noncalcified stone measuring approximately 3.2 by 2.5 cm. There is also now an 8.5 x 5.5 x 7 cm heterogeneous ma ss in the anterior aspect of the right-side of the abdomen which is possibly within the liver or exop hytic off the liver or immediately adjacent to the liver and gallbladder. Neoplastic appearance. CB D is not dilated. PANCREAS: No evidence of pancreatic mass nor dilatation of the pancreatic duct. SPLEEN: Spleen is now enlarged ADRENALS: There are no significant adrenal masses. KIDNEYS:There is a small 8 millimeter cyst in the inferior aspect of the right kidney. No other righ t kidney findings. There are surgical clips associated with the left kidney. Partially calcified no dule in the inferior aspect of the left kidney is again noted. No hydronephrosis.. ABDOMINAL AORTA: Heavily calcified but not enlarged. LYMPH NODES: There is no para-aortic adenopathy. ABDOMINAL WALL: There is a left inguinal hernia evident. Now contains fluid within the left inguinal canal. GI: There is no evidence of bowel obstruction, free air, nor abscess. Diffuse thickening of the wall of the entire colon is noted consistent with element of colitis. PELVIS: LYMPH NODES: There is no intrapelvic nor inguinal adenopathy. GI: No evidence of appendicitis.No evidence of sigmoid diverticulitis. URINARY BLADDER: No calculi nor obvious masses evident REPRODUCTIVE: Prostate size upper normal. OSSEOUS: No significant osseous lesions. IMPRESSION: 1. Uppermost images of this abdominal study reveal significant lung base findings with progression wh en compared to the prior study listed above. There is also now a left pleural effusion which was not previously present. There is also a 5 cm aneurysm of the ascending thoracic aorta noted. 2. There is a large neoplastic-appearing mass in the anterior aspect of the abdomen, right of center which is possibly an exophytic liver mass or mass independent of the liver. Suspicious for malignanc y. This mass measures approximately 8.5 x 5.5 x 7.0 cm. Adjacent liver is again noted be cirrhotic in appearance and there is increasing ascites. 3. Gallbladder now contains a 3.2 x 2.5 cm mass or noncalcified gallstone. Cannot exclude possibilit y of gallbladder neoplasm also here. CBD is not dilated. 4. there is evidence of prior left kidney surgery. Small 8 millimeter finding in the inferior aspec t of the right kidney is probably a cyst. 5. There appears to be a diffuse colitis pattern with mild uniform thickening of the colon wall thro ughout its length. No evidence of appendicitis. 6. No significant osseous lesions identified. Significant degenerative changes both hips. RADIATION DOSE DELIVERED: 678.01mGy.cm Total DLP DATA REPOSITORY: All CT scans at this facility are submitted to the National Radiology Data Registry (NRDR) Dose Index Registry (DIR) with the [employer] (ACR). RADIATION OPTIMIZATION: All CT scans at this facility use at least one of these dose optimization te chniques: automated exposure control; mA and/or kV adjustment per patient size (includes targeted exa ms where dose is matched to clinical indication); or iterative reconstruction.
[2021-01-14] MEDS: fentaNYL 100 MCG/2 ML VIAL 50 MCG IVP ×3 (05:37→08:59)
[2021-01-14 05:38] LABS: Abs Immature Grans 0.01 10^3/uL (0.0-0.06); Absolute Basophil Count 0.02 10^3/uL (0.0-0.2); Absolute Eosinophil Count 0.07 10^3/uL (0.0-0.7); Absolute Lymphocyte Count 0.79 10^3/uL (1.2-3.4); Absolute Monocyte Count 0.54 10^3/uL (0.1-0.8); Absolute Neutrophil Count 3.03 10^3/uL (1.2-6.7); Basophils % 0.4; Eosinophils % 1.6; HCT 31.2 % (40.0-50.0); HGB 10.1 g/dL (13.5-17.5); Immature Grans % 0.2; Lymphocytes % 17.7; MCH 33.4 pg (27.0-33.0); MCHC 32.4 % (32.0-36.0); MCV 103.3 fL (80-95); MPV 11.9 fL (8.0-11.0); Monocytes % 12.1; Nucleated RBC 0 %; Platelet Count 122 10^3/uL (130-400); RBC 3.02 10^6/uL (4.36-5.78); RDW 16.6 % (11.8-14.1); RDW-SD 62.8 fL; WBC 4.46 10^3/uL (4.4-10.8)
[2021-01-14] MEDS: Breeza Beverage 473 ML BTL PO ×2 (05:49→05:50)
[2021-01-14] MEDS: Omnipaque 350 MG/ML 50 ML BTL IJ (05:49)
[2021-01-14 05:50] LABS: INR 3.8 (0.9-1.1); Prothrombin Time 36.5 sec (9.3-11.0)
[2021-01-14 05:52] LABS: ALT 60 U/L (16-63); AST 69 U/L (15-37); Albumin 2.4 g/dL (3.4-5.0); Alkaline Phosphatase 353 U/L (46-116); BUN 32 mg/dL (7-18); Bilirubin, Total 1.2 mg/dL (0.2-1.0); Calcium 8.6 mg/dL (8.5-10.1); Chloride 102 mmol/L (98-107); Estimated GFR 10.75 (mL/min/1.73m2); Glucose 134 mg/dL (74-106); Lipase 249 U/L (73-393); Magnesium 2.6 mg/dL (1.8-2.4); Potassium 3.5 mmol/L (3.5-5.1); Sodium 139 mmol/L (136-145)
[2021-01-14 05:54] LABS: CREATININE 5.2 mg/dL (0.70-1.30)
[2021-01-14 05:57] LABS: Lactate 1.4 mmol/L (0.6-1.4)
[2021-01-14] MEDS: Normal Saline Flush 10 ML SYR IVP (09:00)
--- NOTE | 2021-01-14 09:45 | DI.VRAD_ITS ---
Addendum created by Chandu Hubre MD on 01/14/2021 9:50:46 AM EDT: Correction: The report should read suboptimal study due to the lack of intravenous contrast. There is oral contrast which is helpful but no oral contrast in the the stomach Addendum created by Chandu Huber MD on 01/14/2021 9:49:56 AM EDT: THIS REPORT CONTAINS FINDINGS THAT MAY BE CRITICAL TO PATIENT CARE. The findings were verbally communicated via telephone conference with DR REGALADO at 9:49 AM EDT on 01/14/2021. The findings were acknowledged and understood. Initial report created on 01/14/2021 9:45:21 AM EDT: PROCEDURE INFORMATION: Exam: CT Abdomen And Pelvis Without Contrast Exam date and time: 01/14/2021 5:31 AM Age: 80 years old Clinical indication: Abdominal pain; Localized; Lower TECHNIQUE: Imaging protocol: Computed tomography of the abdomen and pelvis without contrast. Radiation optimization: All CT scans at this facility use at least one of these dose optimization techniques: automated exposure control; mA and/or kV adjustment per patient size (includes targeted exams where dose is matched to clinical indication); or iterative reconstruction. Other contrast: Oral, [id number], 50; COMPARISON: CT ABD PELVIS WO CONTRAST 10/06/2017 11:30 PM FINDINGS: Lungs: 4.9 x 3.2 cm mass in the right lower lobe of the lung. Pleural spaces: Moderate bilateral pleural effusions. . Heart: There is calcification of the mitral valve annulus. Liver: See Intraperitoneal space finding. Gallbladder and bile ducts: 3 cm mass in the region of the gallbladder.. Pancreas: Pancreatic atrophy Spleen: Normal. No splenomegaly. Adrenal glands: Normal. No mass. Kidneys and ureters: Stable metallic densities associated with the left kidney. Left renal atrophy. 4 cm mass in the superior aspect of the left kidney 25 Hounsfield units.. Stomach and bowel: Low-attenuation bowel wall thickening is seen throughout the colon consistent with colitis. Differential diagnosis includes infectious and inflammatory etiologies.. Appendix: No evidence of appendicitis. Intraperitoneal space: 9 x 5 cm mass in the anterior aspect of the right abdomen. This may be a liver mass the. The origin is unclear. . Mild ascites in the abdomen and pelvis Vasculature: Unruptured aneurysm of the ascending aorta 5.2 by 5.1 cm.. Arteries: Status post aortic valve replacement. Lymph nodes: Unremarkable. No enlarged lymph nodes. Urinary bladder: Unremarkable as visualized. Reproductive: Unremarkable as visualized. Bones/joints: Median sternotomy Soft tissues: Left inguinal hernia contains fluid and fat Other findings: Suboptimal study due to the lack of oral intravenous contrast IMPRESSION: 1. 4.9 x 3.2 cm mass in the right lower lobe of the lung. Rule out metastatic disease . 2. 9 x 5 cm mass in the anterior aspect of the right abdomen. This may be a liver mass the. The origin is unclear. Recommend MRI. 3. 3 cm mass in the region of the gallbladder. Possible gallbladder carcinoma or gallstone. 4. Unruptured aneurysm of the ascending aorta 5.2 by 5.1 cm.. 5. Moderate bilateral pleural effusions. . 6. Low-attenuation bowel wall thickening is seen throughout the colon consistent with colitis. Differential diagnosis includes infectious and inflammatory etiologies.. 7. 4 cm mass in the superior aspect of the left kidney 25 Hounsfield units.Recommend MR without and with contrast or CT without and with contrast. MR is preferred for masses under 1.5 cm. . Dictated and Authenticated by: Chandu Huber MD. Ordering:FELIX Delgado MD
== END 2021-01-14 11:10 | disposition home or self-care (01) ==
PROVIDERS: Emergency Medicine; Emergency Provider Physician Assistant; PCP Internal Medicine
DX: K52.9 Noninfective gastroenteritis and colitis, unspecified (principal); R16.0 Hepatomegaly, not elsewhere classified; K82.8 Other specified diseases of gallbladder; N28.89 Other specified disorders of kidney and ureter; N18.6 End stage renal disease; Z99.2 Dependence on renal dialysis
CPT/HCPCS: 80053; 83690; 96374; 96376; 99284; 74176; 83605; 83735; 85025; 85610; J3010; Q9967

== ENCOUNTER 2021-02-07 04:02 | Emergency (ER) | payer MEDICARE, BC, SELFPAY ==
[2021-02-07] VITALS (140 sets, daily range): BP systolic 49–131; BP diastolic 24–85; PULSE 75–167; RESP 10–33; TEMP 36.1; O2SAT 95–100
--- NOTE | 2021-02-07 04:00 | RT.EKG_ITS ---
APPROVED REPORT Exam: Resting ECG Reason for Exam: chest pain Patient Location: E HR:142 bpm ECG Measurements Heart Rate 142 AXIS OK [id number] P [id number] QRSd 105 QRS -63 QT 324 T 123 QTc 499 Conclusion Atrial fibrillation with rapid V-rate...A-rate 366 Left anterior fascicular block...axis(240,-40), init forces inf Consider anterior infarct...Q >30mS in V2-V5 Repolarization abnormality, prob rate related...ST dep, T neg, tachycardia. Afib with RVR. LAFB. No STEMI. I have reviewed and interpreted ECG and agree with software generated interpretation.
--- NOTE | 2021-02-07 04:23 | ED.GENADUL_ITS ---
Discharge Plan Disposition Patient Disposition: OTHER Condition: Serious Discharge Details Clinical Impression: Atrial fibrillation with RVR, ESRD on dialysis, Elevated troponin, Chest pain, Supratherapeutic INR Primary Care Provider: Chris Phillips ED Provider: Jay Cisse Home Meds and New Rx's Prescriptions: No Action ferrous sulfate 325 mg (65 mg iron) tablet 325 mg PO DAILY RF: 0 clopidogrel 75 mg tablet 75 mg PO DAILY RF: 0 ascorbic acid (vitamin C) [Vitamin C] 500 mg Tablet,Chewable 500 mg PO DAILY RF: 0 nitroglycerin 0.4 mg tablet, sublingual 0.4 mg sublingual PRN PRNRF: 0 sevelamer carbonate 2.4 gram Powder In Packet 2.4 g PO TID RF: 0 oxycodone 5 mg tablet 5 mg PO Q6H PRN (Reason: pain) Qty: 14 RF: 0 atorvastatin 40 mg Tablet 80 mg PO QPM RF: 0 warfarin 2.5 mg Tablet 2.5 mg PO DAILY RF: 0 lactobacillus combo #5 150 mg (2 billion cell) Tablet,Delayed Release (Dr/Ec) 150 mg PO .WITH MEALS RF: 0 B complex-vitamin C-folic acid 0.8 mg Tablet 1 tab PO DAILY RF: 0 calcitriol 0.25 mcg Capsule 0.25 mcg PO QAM RF: 0 warfarin 1 mg Tablet 1.25 mg PO DAILY RF: 0 Discharge Data Discharge Date/Time-TO BE ENTERED AT DEPARTURE: 02/07/21 13:41 Medical Decision Making <Tania Briones DO - Last Filed: 02/08/21 15:08> 0420 -- 80-year-old male with multiple chronic medical problems including end- stage renal disease on dialysis, diabetes, hypertension, GERD recently diagnosed liver, lung, gallbladder and renal mass presented for substernal chest pain since an episode of vomiting last night. EKG notes a rate of 142, A. fib with RVR, no STEMI. Heart rate 130s to 140s. Initial blood pressure 131/85. He has subsequently been hypotensive with s ystolic as low as 80s. Patient was given a small fluid bolus and systolic blood pressure improved to 90s and he was given a dose of 5 mg Cardizem IV with improvement of heart rate briefly to the low 100s and then increase back to 120s. Systolic blood pressure now 100s. We'll give a small fluid bolus and give another dose of 5 mg Cardizem IV. Will plan for Cardizem drip if needed. Differential diagnosis includes A. fib with RVR, ACS, GERD, enteritis, electrolyte abnormality. Will place an IV, screening labs, chest x-ray. Labs reviewed. INR supratherapeutic at 4.1, has been between 3-4 since Nov 2020. Potassium 3.3. BUN 55. Creatinine 6.4. Magnesium 2.6. Troponin 0.1. As patient is on dialysis, will need tertiary facility with dialysis for serial troponins, potentially Cardizem drip. [facility] transfer center paged. 0530 --patient placed on Cardizem drip. Heart rate now into the 90s, systolic blood pressure 90s. Patient states chest pain resolved. Discussed with [facility] transfer --cardiology called to urgent procedure and will have to await callback. 0630 --d/w [facility] cardiology who recommends full dose aspirin - can keep the heart rate in the 110s to minimize hypotension. Does not recommend heparin bolus or gtt or plavix bolus. Recommends serial troponins, echocardiogram this morning if possible. No beds available at this time, but if no other transfer location possible, can accept patient for transfer in 24 to 48 hours. Patient's blood pressure remains hypotensive 80s/40s. Heart rate 90s. Pt remains chest pain free, alert and oriented and appears comfortable. Will stop Cardizem drip. 0730 --discussed with [facility] medicine who accepts patient for transfer. Accepting physician Dr. Hanley. Likely no bed availability until later today. Agrees with gentle fluid hydration for hypotension. Discussed with transfer center that still have not heard back from cardiology. Will page [facility] cardiology again for recommendations regarding hypotension. Heart rate 90s to low 100s. Blood pressure remains hypotensive 80s/40s. Pt remains chest pain free, alert and oriented. 0800 --Case endorsed to Dr. Cisse to continue to monitor while awaiting jesenia gray and to discuss with [facility] cardiology regarding recommendation. Medical Records Medical records reviewed: Yes I reviewed the patient's medical records. Imaging Data Radiologic Study: Radiologist's impression: XR Chest Exam date and time: 02/07/2021 4:32 AM Age: 80 years old Clinical indication: Other: Generalized; Prior surgery; Surgery date: 6+ months; Surgery type: Aortic valve replacement; Patient HX: Chest pain, R/O acute disease; Additional info: HX of right lower lobe mass TECHNIQUE: Imaging protocol: XR of the chest. Views: 1 view. COMPARISON: CR XR PORTABLE CHEST AP 01/28/2020 11:17 AM FINDINGS: Lungs: . Lung ricketts unchanged. Pleural spaces: Right pleural effusion unchanged. Heart/Mediastinum: Unremarkable. No cardiomegaly. Bones/joints: Median sternotomy wires again noted. IMPRESSION: No significant interval change. Lab Data Lab results reviewed: Yes I reviewed the patient's lab results. Labs: Laboratory Tests Range/Units 02/07/21 02/07/21 02/07/21 04:20 04:20 04:20 WBC (4.4-10.8) 10^3/uL 13.66 H RBC (4.36-5.78) 10^6/uL 2.48 L Hgb (13.5-17.5) g/dL 8.2 L Hct (40.0-50.0) % 25.5 L MCV (80-95) fL 102.8 H MCH (27.0-33.0) pg 33.1 H MCHC (32.0-36.0) % 32.2 RDW (11.8-14.1) % 16.9 H Plt Count (130-400) 10^3/uL 165 MPV (8.0-11.0) fL 12.2 H Immature Gran % 0.4 Neutrophils % 91.0 Lymphocytes % 4.0 Monocytes % 4.4 Eosinophils % 0.0 Basophils % 0.2 Nucleated RBC % % 0 Absolute Neutrophils (1.2-6.7) 10^3/uL 12.43 H Absolute Lymphocytes (1.2-3.4) 10^3/uL 0.55 L Absolute Monocytes (0.1-0.8) 10^3/uL 0.60 Absolute Eosinophils (0.0-0.7) 10^3/uL 0.00 Absolute Basophils (0.0-0.2) 10^3/uL 0.03 RBC Morphology See Below Polychromasia Present Macrocytosis 1+ PT (9.3-11.0) sec 39.3 H INR (0.9-1.1) 4.1 H APTT (21.0-27.5) sec 45.0 H Sodium (136-145) mmol/L 137 Potassium (3.5-5.1) mmol/L 3.3 L Chloride (98-107) mmol/L 99 Carbon Dioxide (21.0-32.0) mmol/L 28.7 Anion Gap (3-11) mmol/L 9.3 BUN (7-18) mg/dL 55 H Creatinine (0.70-1.30) mg/dL 6.4 H* Estimated GFR/1.73 m2 (mL/min/1.73m2) 8.46 Glucose (74-106) mg/dL 144 H Calcium (8.5-10.1) mg/dL 8.6 Magnesium (1.8-2.4) mg/dL 2.6 H Total Bilirubin (0.2-1.0) mg/dL 1.5 H AST (15-37) U/L 50 H ALT (16-63) U/L 44 Alkaline Phosphatase (46-116) U/L 290 H Troponin I (<0.06) ng/mL 0.12 H* Total Protein (6.4-8.2) g/dL 7.0 Albumin (3.4-5.0) g/dL 2.4 L COVID-19 Source SARS-CoV-2 (PCR) (Negative) Range/Units 02/07/21 05:00 WBC (4.4-10.8) 10^3/uL RBC (4.36-5.78) 10^6/uL Hgb (13.5-17.5) g/dL Hct (40.0-50.0) % MCV (80-95) fL MCH (27.0-33.0) pg MCHC (32.0-36.0) % RDW (11.8-14.1) % Plt Count (130-400) 10^3/uL MPV (8.0-11.0) fL Immature Gran % Neutrophils % Lymphocytes % Monocytes % Eosinophils % Basophils % Nucleated RBC % % Absolute Neutrophils (1.2-6.7) 10^3/uL Absolute Lymphocytes (1.2-3.4) 10^3/uL Absolute Monocytes (0.1-0.8) 10^3/uL Absolute Eosinophils (0.0-0.7) 10^3/uL Absolute Basophils (0.0-0.2) 10^3/uL RBC Morphology Polychromasia Macrocytosis PT (9.3-11.0) sec INR (0.9-1.1) APTT (21.0-27.5) sec Sodium (136-145) mmol/L Potassium (3.5-5.1) mmol/L Chloride (98-107) mmol/L Carbon Dioxide (21.0-32.0) mmol/L Anion Gap (3-11) mmol/L BUN (7-18) mg/dL Creatinine (0.70-1.30) mg/dL Estimated GFR/1.73 m2 (mL/min/1.73m2) Glucose (74-106) mg/dL Calcium (8.5-10.1) mg/dL Magnesium (1.8-2.4) mg/dL Total Bilirubin (0.2-1.0) mg/dL AST (15-37) U/L ALT (16-63) U/L Alkaline Phosphatase (46-116) U/L Troponin I (<0.06) ng/mL Total Protein (6.4-8.2) g/dL Albumin (3.4-5.0) g/dL COVID-19 Source Nasal/Nares SARS-CoV-2 (PCR) (Negative) Negative ECG Data Attestation: I personally reviewed and interpreted this ECG (s) as follows: Interpretation: #1 --Rate of 142, A. fib with RVR. No STEMI. <Jay Cisse MD - Last Filed: 02/07/21 13:49> Patient accepted in transfer of care approximately [address] Briones on the overnight shift. Please see her note regarding details of initial presentation, exam and plan of care. This is a 80-year-old male, , with history of end-stage renal disease on Saturday dialysis. He has a history of CABG what he believes was x3 & [place] aortic valve replacement in 1996 at [facility] in [place]. He developed chest pain, vomiting, rapid atrial fibrillation after a candy tickle in his throat after dinner last night. He arrives to ER with mild hypotension, elevated heart rate, was given total of 10 mg bolus Cardizem and placed on 2.5 mg/h Cardizem drip. His heart rate subsequently stabilized to approximately 80-100 and rate control was weaned. Patient's labs note initial troponin of 0.12, repeat troponin IV 0.48, INR 4.1. He is chest pain-free, feeling better, interactive. We have allowed permissive hypertension of 80-100 systolic. Discussed with [facility] Cardiol ogy/transfer center at 9:15, will continue current management with transfer pending. Approximately 9:30 AM, the DC called back to state that both the [place] and [place] facilities were full and unable to accept patients. I then discussed the case with Dr. Carpenter of the DC at approximately 11:30 AM and the patientq1 may be considered for transfer to the [facility]. Patient's 3rd troponin has risen to 12 but he remains clinically stable. Review of recent visits note systolic blood pressures typically run 80's to 110 chronically for the patient. Patient accepted in transfer to the [facility] at approximately 12:30 PM to the cardiology service of Dr. Jones. Patient given his daily dose of 75 mg Plavix and full aspirin prior to transfer. Report called to on-call Emergency Physician, who requested potassium supplementation prior to transport. Lab Data Lab results reviewed: Yes I reviewed the patient's lab results. Labs: Laboratory Tests Range/Units 02/07/21 02/07/21 02/07/21 04:20 04:20 04:20 WBC (4.4-10.8) 10^3/uL 13.66 H RBC (4.36-5.78) 10^6/uL 2.48 L Hgb (13.5-17.5) g/dL 8.2 L Hct (40.0-50.0) % 25.5 L MCV (80-95) fL 102.8 H MCH (27.0-33.0) pg 33.1 H MCHC (32.0-36.0) % 32.2 RDW (11.8-14.1) % 16.9 H Plt Count (130-400) 10^3/uL 165 MPV (8.0-11.0) fL 12.2 H Immature Gran % 0.4 Neutrophils % 91.0 Lymphocytes % 4.0 Monocytes % 4.4 Eosinophils % 0.0 Basophils % 0.2 Nucleated RBC % % 0 Absolute Neutrophils (1.2-6.7) 10^3/uL 12.43 H Absolute Lymphocytes (1.2-3.4) 10^3/uL 0.55 L Absolute Monocytes (0.1-0.8) 10^3/uL 0.60 Absolute Eosinophils (0.0-0.7) 10^3/uL 0.00 Absolute Basophils (0.0-0.2) 10^3/uL 0.03 RBC Morphology See Below Polychromasia Present Macrocytosis 1+ PT (9.3-11.0) sec 39.3 H INR (0.9-1.1) 4.1 H APTT (21.0-27.5) sec 45.0 H Sodium (136-145) mmol/L 137 Potassium (3.5-5.1) mmol/L 3.3 L Chloride (98-107) mmol/L 99 Carbon Dioxide (21.0-32.0) mmol/L 28.7 Anion Gap (3-11) mmol/L 9.3 BUN (7-18) mg/dL 55 H Creatinine (0.70-1.30) mg/dL 6.4 H* Estimated GFR/1.73 m2 (mL/min/1.73m2) 8.46 Glucose (74-106) mg/dL 144 H Calcium (8.5-10.1) mg/dL 8.6 Magnesium (1.8-2.4) mg/dL 2.6 H Total Bilirubin (0.2-1.0) mg/dL 1.5 H AST (15-37) U/L 50 H ALT (16-63) U/L 44 Alkaline Phosphatase (46-116) U/L 290 H Troponin I (<0.06) ng/mL 0.12 H* Total Protein (6.4-8.2) g/dL 7.0 Albumin (3.4-5.0) g/dL 2.4 L COVID-19 Source SARS-CoV-2 (PCR) (Negative) Range/Units 02/07/21 02/07/21 02/07/21 05:00 08:00 11:26 WBC (4.4-10.8) 10^3/uL RBC (4.36-5.78) 10^6/uL Hgb (13.5-17.5) g/dL Hct (40.0-50.0) % MCV (80-95) fL MCH (27.0-33.0) pg MCHC (32.0-36.0) % RDW (11.8-14.1) % Plt Count (130-400) 10^3/uL MPV (8.0-11.0) fL Immature Gran % Neutrophils % Lymphocytes % Monocytes % Eosinophils % Basophils % Nucleated RBC % % Absolute Neutrophils (1.2-6.7) 10^3/uL Absolute Lymphocytes (1.2-3.4) 10^3/uL Absolute Monocytes (0.1-0.8) 10^3/uL Absolute Eosinophils (0.0-0.7) 10^3/uL Absolute Basophils (0.0-0.2) 10^3/uL RBC Morphology Polychromasia Macrocytosis PT (9.3-11.0) sec INR (0.9-1.1) APTT (21.0-27.5) sec Sodium (136-145) mmol/L Potassium (3.5-5.1) mmol/L Chloride (98-107) mmol/L Carbon Dioxide (21.0-32.0) mmol/L Anion Gap (3-11) mmol/L BUN (7-18) mg/dL Creatinine (0.70-1.30) mg/dL Estimated GFR/1.73 m2 (mL/min/1.73m2) Glucose (74-106) mg/dL Calcium (8.5-10.1) mg/dL Magnesium (1.8-2.4) mg/dL Total Bilirubin (0.2-1.0) mg/dL AST (15-37) U/L ALT (16-63) U/L Alkaline Phosphatase (46-116) U/L Troponin I (<0.06) ng/mL 4.48 H* 12.77 H* Total Protein (6.4-8.2) g/dL Albumin (3.4-5.0) g/dL COVID-19 Source Nasal/Nares SARS-CoV-2 (PCR) (Negative) Negative HPI <Tania Briones DO - Last Filed: 02/08/21 15:08> General Mode of arrival: ambulatory . Date/Time Provider Initiated Documentation: 02/07/21 04:19 . Limitations to Documentation: no limitations . Information obtained by: patient . HPI Narrative: Patient is a 80-year-old male with a history of end-stage renal disease on dialysis, diabetes, GERD, hypertension, history of aortic valve replacement as well as recently diagnosed liver, lung, gallbladder and renal mass on CT presents for chest pain this morning after an episode of coughing and vomiting. Patient states he ate a piece of candy and felt that it caused a tickle in his throat and he started coughing which then caused him to vomit. He states he had eaten his seafood dinner prior to that so he had vomited up his food. He states since then he has had substernal sharp chest pain. He denies any known fever, dizziness, shortness of breath or diarrhea. He states he is scheduled for dialysis this morning. Related Data Home Medications Medication Instructions Recorded Confirmed atorvastatin 80 mg PO QPM 05/02/18 02/07/21 warfarin 2.5 mg PO DAILY 06/05/18 02/07/21 lactobacillus combo #5 150 mg PO .WITH MEALS 09/21/18 02/07/21 B complex-vitamin C-folic acid 1 tab PO DAILY 01/28/20 02/07/21 ascorbic acid (vitamin C) [Vitamin 500 mg PO DAILY 12/14/20 02/07/21 C] clopidogrel 75 mg PO DAILY 12/14/20 02/07/21 nitroglycerin 0.4 mg SUBLINGUAL PRN PRN 12/14/20 02/07/21 calcitriol 0.25 mcg PO QAM 12/17/20 02/07/21 ferrous sulfate 325 mg (65 mg 325 mg PO DAILY 01/02/21 02/07/21 iron) tablet oxycodone 5 mg PO Q6H PRN #14 tab 01/14/21 sevelamer carbonate 2.4 g PO TID 01/14/21 02/07/21 warfarin 1.25 mg PO DAILY 02/07/21 02/07/21 Previous Rx's Medication Instructions Recorded oxycodone 5 mg PO Q6H PRN #14 tab 01/14/21 Allergies Allergy/AdvReac Type Severity Reaction Status Date / Time No Known Allergies Allergy Unverified 02/07/21 04:19 General Stated Complaint: Chest Pain JOHAN: 3 Review of Systems <Tania Briones DO - Last Filed: 02/08/21 15:08> All systems reviewed & are unremarkable except as noted in HPI and below Constitutional Constitutional: Reports as per HPI, Denies chills and Denies fever(s) Eyes Eyes: Denies blurry vision ENT Ears, Nose, Mouth, and Throat: Denies dizziness, Denies sore throat and Denies throat swelling Cardiovascular Cardiovascular: Reports chest pain and Denies dyspnea Respiratory Respiratory: Reports cough and Denies dyspnea Gastrointestinal Gastrointestinal: Denies abdominal pain, Denies diarrhea and Reports vomiting Genitourinary Genitourinary: Denies hematuria and Denies dysuria Musculoskeletal Musculoskeletal: Denies back pain and Denies numbness Integumentary/Breasts Skin/Breast: Denies lesions and Denies rash Neurologic Neurologic: Denies dizziness, Denies localized weakness and Denies numbness Allergic/Immunologic Allergic/Immunologic: Denies throat swelling PFSH <Tania Briones DO - Last Filed: 02/08/21 15:08> Medical History Diabetes ESRD (end stage renal disease) on dialysis GERD (gastroesophageal reflux disease) HTN (hypertension) Surgical procedures, elective Removal of temporary dialysis catheter/port by Dr Eric Rivera, [facility] Surgical History H/O aortic valve replacement History of cataract surgery History of ear surgery Removal of squamous tumor History of nephrectomy History of tonsillectomy and adenoidectomy Family History Father No problems noted. Mother No problems noted. Sister No problems noted. Brother Heart attack Social History Smoking/Tobacco Use Status: Former Tobacco Use Smoking risk assessment performed?: Yes Alcohol Intake: former Drug use: Never Substance use type: does not use Do you feel safe at home: Yes Do you feel safe in your relationship?: Yes Exam <Tania Briones DO - Last Filed: 02/08/21 15:08> Const General: cooperative, no acute distress and ill appearing chronically Orientation: alert, awake and oriented x3 HENMT Head: normal to inspection Face and sinus: normal facial exam Eyes General: appearance normal, both eyes and all related structures EOM: EOM intact bilaterally Neck Neck: normal visual inspection and No submandibular swelling Lymphatic: no lymphadenopathy noted Chest Chest: normal inspection of the chest and no tenderness Resp Effort & Inspection: normal respiratory effort and able to speak in complete sentences Auscultation: clear to auscultation bilaterally Cardio Rate: tachycardic Rhythm: abnormal rhythm irregularly irregular GI Inspection: normal to inspection Palpation: soft, not firm, not rigid and nontender Auscultation: normal bowel sounds Skin General skin exam: no rashes or lesions noted Neuro General: patient alert, patient awake and patient oriented x3 Cognition: normal cognition Speech: speech normal Motor: muscle tone normal throughout Sensory Exam: no sensory deficits noted Extrem General: normal to inspection, full ROM, capillary refill normal, no calf tenderness bilaterally and no edema Psych Appearance: grossly normal Mental Status: mental status grossly normal Speech and Movement: speech and movement normal Affect: normal affect Course <Tania Briones DO - Last Filed: 02/08/21 15:08> Vital Signs Vital signs: Vital Signs Temperature 97.0 F L 02/07/21 04:15 Pulse 135 H 02/07/21 04:15 Respiratory Rate 22 02/07/21 04:15 Blood Pressure 131/85 02/07/21 04:15 Pulse Oximetry 100 02/07/21 04:15 Temperature 97.0 F L 02/07/21 04:15 Temperature Source Temporal Artery Scan 02/07/21 04:15 Pulse 135 H 02/07/21 04:15 Respiratory Rate 22 02/07/21 04:15 Blood Pressure 131/85 02/07/21 04:15 Blood Pressure Position Sitting 02/07/21 04:15 Pulse Oximetry 100 02/07/21 04:15 Oxygen Delivery Method Room Air 02/07/21 04:15 Oxygen Flow Rate 0 02/07/21 04:15 Pain Level 1 02/07/21 04:15 <Jay Cisse MD - Last Filed: 02/07/21 13:49> Critical Care Time Critical Care Time: Yes Total Critical Care Time: 30 Attestation: Management of tachydysrhythmia, bedside care, discussion with family and consultants. Sign Out <DO Faith Tubbs Last Filed: 02/08/21 15:08> Sign Out Data: Sign Out Comment: Patient accepted for transfer to [facility]. Bed may not be available until later today. Follow-up with [facility] cardiology regarding further discussion of patient's atrial fibrillation and hypotension. Last updated by Tania Briones DO at 02/07/21 08:27
--- NOTE | 2021-02-07 04:30 | DI.RAD_ITS ---
Exam(s) XR PORTABLE CHEST AP EXAM: XR PORTABLE CHEST AP CLINICAL HISTORY: chest pain, r/o acute disease TECHNIQUE: 2D digital imaging was performed of the chest. Images were obtained. PA and lateral v iews were obtained. COMPARISON: CR XR CHEST 2V PA LATERAL from 09/21/2018 CR XR PORTABLE CHEST AP from 01/28/2020 FINDINGS: MEDIASTINUM: Normal. HEART: Normal. There is again seen an aortic valve replacement. PULMONARY VASCULATURE: Normal. LUNGS: The bilateral pulmonary infiltrates appear chronic and stable. No acute infiltrates are seen. Note is again made of an azygos lobe. PLEURAL SPACE: There has been no change in appearance of the right pleural effusion. BONE:Within normal limits for the patient's age. Sternotomy wires are stable. OTHER FINDINGS:Normal. IMPRESSION: No change in appearance of the chest since 01/28/2020. DATA REPOSITORY: RADIATION DOSE DELIVERED:
[2021-02-07 04:31] LABS: Abs Immature Grans 0.05 10^3/uL (0.0-0.06); Absolute Basophil Count 0.03 10^3/uL (0.0-0.2); Basophils % 0.2; HCT 25.5 % (40.0-50.0); HGB 8.2 g/dL (13.5-17.5); Immature Grans % 0.4; MCH 33.1 pg (27.0-33.0); MCHC 32.2 % (32.0-36.0); MCV 102.8 fL (80-95); MPV 12.2 fL (8.0-11.0); Monocytes % 4.4; Nucleated RBC 0 %; Platelet Count 165 10^3/uL (130-400); RBC 2.48 10^6/uL (4.36-5.78); RDW 16.9 % (11.8-14.1); RDW-SD 62.9 fL; WBC 13.66 10^3/uL (4.4-10.8)
[2021-02-07] MEDS: Normal Saline 250 ML IV ×3 (04:35→08:31)
[2021-02-07 04:43] LABS: Absolute Lymphocyte Count 0.55 10^3/uL (1.2-3.4); Absolute Neutrophil Count 12.43 10^3/uL (1.2-6.7)
[2021-02-07 04:46] LABS: Prothrombin Time 39.3 sec (9.3-11.0)
[2021-02-07 04:47] LABS: INR 4.1 (0.9-1.1)
[2021-02-07 04:48] LABS: ALT 44 U/L (16-63); AST 50 U/L (15-37); Albumin 2.4 g/dL (3.4-5.0); Alkaline Phosphatase 290 U/L (46-116); Anion Gap 9.3 mmol/L (3-11); BUN 55 mg/dL (7-18); Bilirubin, Total 1.5 mg/dL (0.2-1.0); CO2 28.7 mmol/L (21.0-32.0); Calcium 8.6 mg/dL (8.5-10.1); Chloride 99 mmol/L (98-107); Estimated GFR 8.46 (mL/min/1.73m2); Glucose 144 mg/dL (74-106); Magnesium 2.6 mg/dL (1.8-2.4); Potassium 3.3 mmol/L (3.5-5.1); Sodium 137 mmol/L (136-145)
[2021-02-07 04:49] LABS: CREATININE 6.4 mg/dL (0.70-1.30); Troponin I 0.12 ng/mL (<0.06)
[2021-02-07] MEDS: dilTIAZem 25 MG/5 ML VIAL 5 MG IVP ×2 (04:50→05:09)
[2021-02-07 04:58] LABS: Diff Comment RBC Morph Reviewed; Macrocytosis 1+; Polychromasia Present
[2021-02-07 05:21] LABS: Source Nasal/Nares
[2021-02-07] MEDS: dilTIAZem 125 MG in Normal Saline 100 ML IV (05:24)
--- NOTE | 2021-02-07 05:58 | DI.VRAD_ITS ---
PROCEDURE INFORMATION: Exam: XR Chest Exam date and time: 02/07/2021 4:32 AM Age: 80 years old Clinical indication: Other: Generalized; Prior surgery; Surgery date: 6+ months; Surgery type: Aortic valve replacement; Patient HX: Chest pain, R/O acute disease; Additional info: HX of right lower lobe mass TECHNIQUE: Imaging protocol: XR of the chest. Views: 1 view. COMPARISON: CR XR PORTABLE CHEST AP 01/28/2020 11:17 AM FINDINGS: Lungs: . Lung ricketts unchanged. Pleural spaces: Right pleural effusion unchanged. Heart/Mediastinum: Unremarkable. No cardiomegaly. Bones/joints: Median sternotomy wires again noted. IMPRESSION: No significant interval change. Dictated and Authenticated by: Chris Soriano MD. Ordering:CHRISTINA Marin MD
[2021-02-07 06:12] LABS: COVID-19 PCR Negative (Negative)
[2021-02-07] MEDS: Aspirin 325 MG TAB PO (06:47)
--- NOTE | 2021-02-07 07:45 | RT.EKG_ITS ---
APPROVED REPORT Exam: Resting ECG Reason for Exam: chest pain Patient Location: E HR:93 bpm ECG Measurements Heart Rate 93 [address] [place] [id number] P [id number] QRSd 101 QRS -65 QT 391 T 66 QTc 488 Conclusion Atrial fibrillation. Incomplete RBBB and LAFB. Right ventricular hypertrophy.
[2021-02-07 08:40] LABS: Troponin I 4.48 ng/mL (<0.06)
[2021-02-07 12:03] LABS: Troponin I 12.77 ng/mL (<0.06)
[2021-02-07] MEDS: Clopidogrel 75 MG TAB PO (12:59)
[2021-02-07] MEDS: Metoprolol 25 MG TAB 12.5 MG PO (13:00)
== END 2021-02-07 13:41 | disposition other institution (70) ==
PROVIDERS: Physician Assistant; Emergency Provider Emergency Medicine; PCP Internal Medicine
DX: I48.91 Unspecified atrial fibrillation (principal); I12.0 Hypertensive chronic kidney disease with stage 5 chronic kidney disease or end stage renal disease; E11.22 Type 2 diabetes mellitus with diabetic chronic kidney disease; N18.6 End stage renal disease; Z99.2 Dependence on renal dialysis
CPT/HCPCS: 36415; 80053; 87635; 93005; 96361; 96365; 96366; 96375; 99291; 71045; 83735; 84484; 85025; 85610; 85730; 93010

== ENCOUNTER 2021-03-13 06:15 | Emergency (ER) | payer MEDICARE, BC, SELFPAY ==
[2021-03-13] VITALS (134 sets, daily range): BP systolic 90–117; BP diastolic 45–76; PULSE 79–135; RESP 15–32; TEMP 36.6–36.7; O2SAT 89–98
--- NOTE | 2021-03-13 06:30 | RT.EKG_ITS ---
APPROVED REPORT Exam: Resting ECG Reason for Exam: rapid heart rate Patient Location: E HR:123 bpm ECG Measurements Heart Rate [address] [place] [id number] P [id number] QRSd 105 QRS -70 QT 358 T 90 QTc 512 Conclusion Atrial fibrillation. Paired ventricular premature complexes...sequence of 2 V complexes Incomplete RBBB and LAFB...axis(240,-40), S>R II III aVF Nonspecific T abnormalities, lateral leads...T <-0.10mV, I aVL V5 V6 Prolonged QT interval...QTc >500mS
--- NOTE | 2021-03-13 06:52 | W.ED.GENAD ---
Discharge Plan Disposition Patient Disposition: SERGO FARIAS ([facility]) Condition: Stable Discharge Details Clinical Impression: Encephalopathy, hepatic, ESRD (end stage renal disease), Atrial fibrillation Primary Care Provider: Chris Phillips ED Provider: Justin Ley Home Meds and New Rx's Prescriptions: No Action ferrous sulfate 325 mg (65 mg iron) tablet 325 mg PO Q2D PRNRF: 0 ascorbic acid (vitamin C) [Vitamin C] 500 mg Tablet,Chewable 500 mg PO DAILY RF: 0 nitroglycerin 0.4 mg tablet, sublingual 0.4 mg sublingual PRN PRNRF: 0 sevelamer carbonate 2.4 gram Powder In Packet 2.4 g PO TID RF: 0 atorvastatin 40 mg Tablet 80 mg PO QPM RF: 0 warfarin 2.5 mg Tablet 2 mg PO DAILY RF: 0 lactobacillus combo #5 150 mg (2 billion cell) Tablet,Delayed Release (Dr/Ec) 150 mg PO .WITH MEALS RF: 0 B complex-vitamin C-folic acid 0.8 mg Tablet 1 tab PO DAILY RF: 0 calcitriol 0.25 mcg Capsule 0.25 mcg PO QAM RF: 0 warfarin 1 mg Tablet 1 mg PO 4XW RF: 0 sucralfate [Carafate] 100 mg/mL Suspension 10 ml PO QID RF: 0 pantoprazole 40 mg Tablet,Delayed Release (Dr/Ec) 40 mg PO BID RF: 0 aspirin [Aspir-Low] 81 mg Tablet,Delayed Release (Dr/Ec) 81 mg PO DAILY RF: 0 ipratropium bromide 21 mcg (0.03 %) [place],Non-Aerosol 1 spray INTRANASAL DAILY PRNRF: 0 midodrine 10 mg Tablet 10 mg PO TID RF: 0 ammonium lactate 12 % Lotion 1 applic TOPICAL QD-BID PRNRF: 0 Discharge Data Discharge Date/Time-TO BE ENTERED AT DEPARTURE: 03/13/21 21:09 Medical Decision Making <Jay Cisse MD - Last Filed: 03/13/21 07:18> This is a 80-year-old male who was last in the emergency department on February 08, 2020 was transferred to [facility] for elevated troponin, rapid A. fib, question of new liver mass. He was admitted there until March 07 and his states he underwent cardiac catheterization which revealed in-stent stenosis, he developed ascites and underwent numerous paracentesis. He now presents to the ER with 2 days of progressive swelling in the abdomen and mild confusion. He has not had a fall or injured himself. He typically undergoes dialysis Saturday//Saturday and completed his last dialysis uneventfully. This week he is scheduled for dialysis today, Saturday, and Saturday due to the . Patient arrives to the ER afebrile, interactive and conversant. His pulse is 120. His blood pressure 112/76. Differential diagnosis in includes hyperammonemia, metabolic encephalopathy, ascites, progressive growth of known abdominal mass. He presents in rapid atrial fibrillation. IV access established, patient placed on cafeteria monitor. Due to rapid atrial fibrillation given 5 mg Cardizem IV push. Laboratories including ammonia and lactate obtained, patient referred for CT scan of the head given confusion and recently elevated INR, and as well referred for CT imaging of the chest, abdomen and pelvis. As patient presented at change of shift, will sign out to the oncoming physician, Dr. Ayanna Ley. Please see her note regarding the patient's diagnostic studies and further disposition. <Kassandra Ley MD - Last Filed: 03/19/21 21:32> Patient signed out to me at time of shift change by Dr. Cisse with CT chest, abdomen, pelvis pending. CT chest shows patchy pulmonary opacities, moderate to large left and small to moderate right pleural effusions. CT abdomen pelvis shows hepatic cirrhosis, small bowel and colonic wall thickening may reflect portal hypertension versus a nonspecific enterocolitis, portal hypertension manifested as large volume abdominal ascites, abdominal varices. CT head negative for acute process. On my examination patient is alert and oriented x3, no abdominal tenderness to palpation, no respiratory distress. Patient's reports that patient had similar symptoms that were relieved with lactulose while inpatient at the [facility], she reports that patient was not discharged home on lactulose. Patient currently with mild hepatic encephalopathy, with lactate 3.5 possible occult infectious process including pneumonia, SBP, other, atrial fibrillation with borderline rapid ventricular rate 110-120, plan to start IV diltiazem. We will continue to monitor. Ronda calls to [facility] stating physicians rounding, Pt likely to be accepted, hospital has capacity. 1150: no capacity at [facility], they refuse transfer. [facility] transfer center contacted, awaiting callback. [facility] transfer center also contacted, awaiting callback. 1211: [facility] refused, no capacity 1214: [facility] refused no capacity 1220: [facility] contacted, awaiting callback 1220: [facility] refused, no capacity 1221: [facility] contacted, refused no capacity 1231: [facility] refused, no capacity 1231: [facility] contacted, awaiting callback 1237 [facility] contacted, awaiting call back 1251: [facility] contacted, no capacity Discussed Pt with Dr. Warren, cannot accept due to dialysis, medical consult requested anticipating prolonged ED stay 2/2 difficulty with transfer multiple regional [facility] contacted by dental secretary, no capacity, messages left 1344: [facility] contacted, no capacity, Pt placed on hold list 1350: [facility] contacted, no capacity 1353: [facility] contacted, no capacity 1355: [facility] contacted, awaiting callback 1400: [facility] contacted, no capacity, Pt information taken, will call if bed opens 1406: [facility] contacted: both hospitals in system without capacity 1418: [facility] refuses, no capacity, [facility] refuses, no capacity 1420: [facility] contacted, no capacity 1443: myself and dental secretary have contacted 30+ dialysis capable facilities in [place], no capacity. [facility] contacted for possible down and back tomorrow for dialysis to allow for regional lateral transfer. [facility] contacted, Pt now accepted by medicine for transfer, no beds available at this time. Medicine recommended change from diltiazem gtt to PO diltiazem if Pt tolerates as this may improve ability to accept Pt sooner, recommends 30mg PO dilt q6hrs. On multiple reassessment Pt's status unchanged. No further complaint. Will repeat lactate. Pt signed out to Dr. Justin Ley at shift change with transfer repeat lactate pending. Medical Records Medical records reviewed: Yes I reviewed the patient's medical records. Lab Data Lab results reviewed: Yes I reviewed the patient's lab results. <Justin Ley MD - Last Filed: 03/27/21 17:13> 1630 --care signed out by Dr. Kassandra Ley. Patient has been accepted to [facility] but unfortunately no bed available at this time. Patient will likely be transferred tomorrow. 1729 -- I called and spoke with Dr. Soni, director correctional agency hospitalist, and consulted him regarding ongoing management while boarding here and awaiting transfer. Dr. Soni will assess the patient. --Dr. Soni saw the patient and recommended continuing diltiazem p.o. 30 mg every 6 hour, continue cefepime 2 g every 8, he does not feel vancomycin needs to be continued at this time, he also recommends continuing lactulose 30 mL with goal of 2-3 soft bowel movements per day. 2027 -- HR improved on oral diltiazem. Infusion has been discontinued for the past 45 minutes and patient's HR been steady in the 80s-100 range. I called and provided update to [facility] and they will accept patient in transfer now. I called an updated his . HPI <Jay Cisse MD - Last Filed: 03/13/21 07:18> General Mode of arrival: wheelchair. Date/Time Provider Initiated Documentation: 03/13/21 06:35. Limitations to Documentation: no limitations. Information obtained by: patient and family. History of Present Illness 80 year old M presents to the emergency department with the chief complaint of Swollen abdomen, confusion, described as moderate, Quality is described as constant, and is localized to the abdomen. Patient reports no radiation. Patient started experiencing this day(s) and it has been constant. No relieving factors improve symptom(s), No exacerbating factors reported . Patient notes no other symptoms.. Patient did receive the following treatments prior to arrival, none and other (Normally Saturday dialysis, due to holiday is to be Saturday, Saturday, Saturday this week) Related Data Home Medications Medication Instructions Recorded Confirmed atorvastatin 80 mg PO QPM 05/02/18 03/27/21 warfarin 2 mg PO DAILY 06/05/18 03/27/21 lactobacillus combo #5 150 mg PO .WITH MEALS 09/21/18 03/27/21 B complex-vitamin C-folic acid 1 tab PO DAILY 01/28/20 03/27/21 ascorbic acid (vitamin C) [Vitamin 500 mg PO DAILY 12/14/20 03/27/21 C] nitroglycerin 0.4 mg SUBLINGUAL PRN PRN 12/14/20 03/27/21 calcitriol 0.25 mcg PO QAM 12/17/20 03/27/21 ferrous sulfate 325 mg (65 mg 325 mg PO Q2D PRN 01/02/21 03/27/21 iron) tablet sevelamer carbonate 2.4 g PO TID 01/14/21 03/27/21 warfarin 1 mg PO 4XW 02/07/21 03/27/21 pantoprazole 40 mg PO BID 03/13/21 03/27/21 sucralfate [Carafate] 10 ml PO QID 03/13/21 03/27/21 ammonium lactate 1 applic TOPICAL QD-BID PRN 03/27/21 03/27/21 aspirin [Aspir-Low] 81 mg PO DAILY 03/27/21 03/27/21 ipratropium bromide 1 spray INTRANASAL DAILY PRN 03/27/21 03/27/21 midodrine 10 mg PO TID 03/27/21 03/27/21 Allergies Allergy/AdvReac Type Severity Reaction Status Date / Time No Known Allergies Allergy Unverified 03/27/21 15:46 General Stated Complaint: GenMedical JOHAN: 2 Review of Systems <Jay Cisse MD - Last Filed: 03/13/21 07:18> Narrative[facility] Progressive confusion and abdomen swelling, 8 systems reviewed and otherwise negative PFSH <Jay Cisse MD - Last Filed: 03/13/21 07:18> Active Problem List Colitis (Acute) Liver mass (Acute) Lung mass (Acute) Gallbladder mass (Acute) Renal mass (Acute) ESRD (end stage renal disease) on dialysis (Acute) Atrial fibrillation with RVR (Acute) ESRD on dialysis (Acute) Elevated troponin (Acute) Chest pain (Acute) Supratherapeutic INR (Acute) Anterior epistaxis (Acute) Acquired hypercoagulable state (Acute) Epistaxis (Acute) Encounter for removal of nasal packing (Acute) Vascular dialysis catheter in place (Acute) Medical History Diabetes ESRD (end stage renal disease) on dialysis GERD (gastroesophageal reflux disease) HTN (hypertension) Surgical procedures, elective Removal of temporary dialysis catheter/port by Dr Eric Rivera, [facility] Surgical History H/O aortic valve replacement History of cataract surgery History of ear surgery Removal of squamous tumor History of nephrectomy History of tonsillectomy and adenoidectomy Family History Father No problems noted. Mother No problems noted. Sister No problems noted. Brother Heart attack Social History Smoking/Tobacco Use Status: Former Tobacco Use Smoking risk assessment performed?: Yes Alcohol Intake: former Drug use: Never Substance use type: does not use Do you feel safe at home: Yes Do you feel safe in your relationship?: Yes Exam <Jay Cisse MD - Last Filed: 03/13/21 07:18> Narrative Exam Narrative: GEN: awake, alert, well groomed, interactive. HEAD: Normocephalic, atraumatic ENT: Mucous membranes dry, oropharynx unremarkable, External ear exam unremarkable EYES: PERRL, EOMI NECK: Full ROM, no VICTORINA, no menigismus CHEST/RESP: Nontender, clear to auscultation bilateral, no wheeze/rhonchi/rales CARDIOVASCULAR: Irregularly irregular, tachycardic,mechanical click appreciated. 2+ Rad pulse bilateral ABDOMEN: Soft, distended, no significant tenderness or rebound. +Bowel sounds EXT: Full ROM, no edema, no rash Skin: Appears slightly jaundiced Neuro: Grossly normal neurologic exam, conversant, interactive. Psych: Speech fluent, thoughts congruent, affect flat Course <Jay Cisse MD - Last Filed: 03/13/21 07:18> Vital Signs Vital signs: Vital Signs Temperature 36.6 C 03/13/21 06:28 Pulse 124 H 03/13/21 06:28 Respiratory Rate 18 03/13/21 06:28 Blood Pressure 112/76 03/13/21 06:28 Pulse Oximetry 96 03/13/21 06:28 Temperature 36.6 C 03/13/21 06:28 Temperature Source Oral 03/13/21 06:28 Pulse 124 H 03/13/21 06:28 Respiratory Rate 18 03/13/21 06:28 Blood Pressure 112/76 03/13/21 06:28 Blood Pressure Position Supine 03/13/21 06:28 Pulse Oximetry 96 11/22/21 06:28 Oxygen Delivery Method Room Air 03/13/21 06:28 Oxygen Flow Rate 0 03/13/21 06:28 Pain Level 0 03/13/21 06:28 Sign Out <Jay Cisse MD - Last Filed: 03/13/21 07:18> Sign Out Data: Sign Out Comment: Followup labs, images Last updated by Jay Cisse MD at 03/13/21 07:22 Sign Out Comment: Patient signed out to Dr. Ley at time of shift change with inpatient placement, repeat lactate pending Last updated by Kassandra Ley MD at 03/13/21 16:01
[2021-03-13 06:55] LABS: Abs Immature Grans 0.03 10^3/uL (0.0-0.06); Absolute Basophil Count 0.02 10^3/uL (0.0-0.2); Absolute Eosinophil Count 0.02 10^3/uL (0.0-0.7); Absolute Lymphocyte Count 0.81 10^3/uL (1.2-3.4); Absolute Monocyte Count 0.89 10^3/uL (0.1-0.8); Absolute Neutrophil Count 6.43 10^3/uL (1.2-6.7); Basophils % 0.2; Eosinophils % 0.2; HCT 27.8 % (40.0-50.0); HGB 8.9 g/dL (13.5-17.5); Immature Grans % 0.4; Lymphocytes % 9.9; MCH 31.1 pg (27.0-33.0); MCV 97.2 fL (80-95); Monocytes % 10.9; Neutrophils % 78.4; Nucleated RBC 0 %; Platelet Count 141 10^3/uL (130-400); RBC 2.86 10^6/uL (4.36-5.78)
--- NOTE | 2021-03-13 07:00 | DI.CT_ITS ---
Exam(s) CT HEAD WO EXAM: CT HEAD WO CLINICAL HISTORY: confusion, anticoagulate. TECHNIQUE: Imaging Protocol: Axial computed tomography images with coronal and sagittal reformatted images were created and reviewed COMPARISON: CT HEAD WITHOUT CONTRAST from 07/28/2017 FINDINGS: Artifact on the inferior images through the cerebellum. Ventricles and Extra axial spaces: Normal in size and morphology for the patient's age. Hemorrhage: None. Cerebral parenchyma: Atrophy. White matter changes consistent with small vessel disease. Midline shift: None. Brainstem/Cerebellum: Normal. Calvarium: Normal. Visualized Paranasal sinuses/Mastoids: Clear. IMPRESSION: No acute abnormality. RADIATION DOSE DELIVERED: 851.48mGy.cm Total DLP 851.48mGy.cm Total DLP DATA REPOSITORY: All CT scans at this facility are submitted to the National Radiology Data Registry (NRDR) Dose Index Registry (DIR) with the [employer] (ACR). RADIATION OPTIMIZATION: All CT scans at this facility use at least one of these dose optimization te chniques: automated exposure control; mA and/or kV adjustment per patient size (includes targeted exa ms where dose is matched to clinical indication); or iterative reconstruction.
--- NOTE | 2021-03-13 07:00 | DI.CT_ITS ---
Exam(s) CT CHEST/ABD/PEL W EXAM: CT CHEST/ABD/PEL W CLINICAL HISTORY: Liver mass, distension, rapid heart rate, confusio. TECHNIQUE: Imaging Protocol: Axial computed tomography images with coronal and sagittal reformatted images were created and reviewed CONTRAST MATERIAL: Intravenous: Omnipaque 350 Contrast volume:100 ml Oral: no COMPARISON: CT ABD PELVIS WITH CONTRAST from 08/26/2017 CT ABD PELVIS WITH CONTRAST from 08/26/2017 CT ABD PELVIS WO CONTRAST from 10/06/2017 CT ABD PELVIS WO CONTRAST from 10/06/2017 US USAB1Q from 10/07/2017 US USAB1Q from 10/07/2017 US ABDOMEN ULTRASOUND (P) from 10/11/[address] CHEST PE CTA from 01/28/[address] CHEST PE CTA from 01/28/[address] ABDOMEN PELVIS WO from 01/14/[address] ABDOMEN PELVIS WO from 01/14/2021 CR,XR XR PORTABLE CHEST AP from 02/07/2021 CR,XR XR PORTABLE CHEST AP from 02/07/2021 FINDINGS: CHEST: Limited exam due to respiratory motion. Tracheobronchial tree: Patent where visualized. Mediastinum and Henna: No dominant adenopathy or fluid collection. Soft tissues: Bilateral gynecomasti a. Body wall edema. Pulmonary parenchyma: Basilar atelectasis. Question mild pulmonary edema. Azygos lobe, normal varia nt. Pleura: Small right and moderate left pleural effusion. Adjacent atelectasis. No or pneumothorax. Lymph nodes: Within normal limits. Aorta: Dilated ascending aorta 4.7 x 4.2 cm. No dissection. Heart: Enlarged. Aortic valve prosthesis. Coronary artery stents. Bones: Sternal wires. Degenerative changes. Unremarkable for age. No lytic or blastic lesions. ABDOMEN: Somewhat limited by motion. Liver: Cirrhotic appearing. Decreased size of mass between liver and stomach. The no appears lower density than previously. 5 cm diameter. Gallbladder and biliary tract: High-density material in gallbladder. Pancreas: Normal density, no abnormal calcifications or inflammatory process. Spleen: Enlarged. Kidneys: Left kidney appears atrophic. There are multiplemetallic coils. There is a fatty mass the inferior pole which appears stable compared with 2018.. No radiodense stones or obstructive uropathy . Right kidney stable tiny hypodensities not well seen due to motion. Adrenal glands: No masses seen. Aorta: Abdominal portion non-dilated. Heavily calcified. Lymph nodes: Within normal limits. Soft tissues: Diffuse body wall edema. PELVIS: Bladder: Symmetric distention, no gross wall thickening. Bowel: Large chronic of stool in rectosigmoid. Appendix normal. No small bowel dilatation. Questio n of mild diffuse small bowel wall thickening Peritoneal cavity: Large quantity of ascites, increasing when compared with the previous exam. Bones: Unremarkable for age.. Reproductive organs: Within normal limits. Large left inguinal hernia containing fat and fluid. IMPRESSION: Increasing size of bilateral pleural effusions. Adjacent atelectasis. Increasing ascites. Decreased size of mass seen between liver and stomach, now measuring 5 cm in rou ghly in diameter... Question mild diffuse small bowel wall thickening. No evidence of obstruction. RADIATION DOSE DELIVERED: 1,519.92mGy.cm Total DLP DATA REPOSITORY: All CT scans at this facility are submitted to the National Radiology Data Registry (NRDR) Dose Index Registry (DIR) with the [employer] (ACR). RADIATION OPTIMIZATION: All CT scans at this facility use at least one of these dose optimization te chniques: automated exposure control; mA and/or kV adjustment per patient size (includes targeted exa ms where dose is matched to clinical indication); or iterative reconstruction.
[2021-03-13] MEDS: dilTIAZem 25 MG/5 ML VIAL 5 MG IVP (07:06)
[2021-03-13 07:10] LABS: PTT Activated 44.3 sec (21.0-27.5); Prothrombin Time 38.8 sec (9.3-11.0)
[2021-03-13 07:15] LABS: Lactate 3.5 mmol/L (0.6-1.4)
[2021-03-13 07:18] LABS: ALT 68 U/L (16-63); AST 120 U/L (15-37); Albumin 1.9 g/dL (3.4-5.0); Alkaline Phosphatase 371 U/L (46-116); Anion Gap 9.1 mmol/L (3-11); BUN 30 mg/dL (7-18); Bilirubin, Total 2.6 mg/dL (0.2-1.0); CO2 29.9 mmol/L (21.0-32.0); Calcium 8.5 mg/dL (8.5-10.1); Chloride 98 mmol/L (98-107); Estimated GFR 11.25 (mL/min/1.73m2); Glucose 159 mg/dL (74-106); Magnesium 2.4 mg/dL (1.8-2.4); Potassium 3.7 mmol/L (3.5-5.1); Sodium 137 mmol/L (136-145); Total Protein 7.2 g/dL (6.4-8.2)
[2021-03-13 07:33] LABS: Source Nasal/Nares
[2021-03-13 07:34] LABS: ETHANOL BLOOD < 3.0 mg/dL (<10); Troponin I 0.18 ng/mL (<0.06)
[2021-03-13 07:35] LABS: Ammonia 75 umol/L (11-32)
[2021-03-13] MEDS: Omnipaque 350 MG/ML 100 ML BTL IV (07:42)
[2021-03-13] MEDS: Ondansetron 4 MG/2 ML VIAL IVP (07:45)
--- NOTE | 2021-03-13 07:47 | DI.VRAD_ITS ---
PROCEDURE INFORMATION: Exam: CT Head Without Contrast Exam date and time: 03/13/2021 7:02 AM Age: 80 years old Clinical indication: Patient HX: Confusion, anticoagulate TECHNIQUE: Imaging protocol: Computed tomography of the head without contrast. Radiation optimization: All CT scans at this facility use at least one of these dose optimization techniques: automated exposure control; mA and/or kV adjustment per patient size (includes targeted exams where dose is matched to clinical indication); or iterative reconstruction. COMPARISON: CT HEAD WITHOUT CONTRAST 07/28/2017 7:58 PM FINDINGS: Brain: Age- related chronic microvascular changes are noted within the white matter. Decreased attenuation in the left cerebellar hemisphere may reflect artifact versus encephalomalacia from likely distant prior infarct. Cerebral ventricles: The ventricles and sulci are prominent compatible with age-appropriate atrophy. Paranasal sinuses: Visualized sinuses are unremarkable. No fluid levels. Mastoid air cells: Visualized mastoid air cells are well aerated. Bones/joints: Unremarkable. No acute fracture. Soft tissues: Unremarkable. IMPRESSION: 1. Age-appropriate atrophy and chronic microvascular change. 2. Decreased attenuation in the left cerebellar hemisphere may reflect artifact versus encephalomalacia from likely distant prior infarct. Dictated and Authenticated by: Brian Weinstein MD. Ordering:ANDRE Thompson MD
--- NOTE | 2021-03-13 07:57 | DI.VRAD_ITS ---
PROCEDURE INFORMATION: Exam: CT Chest With Contrast; Diagnostic Exam date and time: 03/13/2021 7:02 AM Age: 80 years old Clinical indication: Other: Liver mass, distension, rapid heart rate, confusion; Additional info: Limited ability to hold breath TECHNIQUE: Imaging protocol: Diagnostic computed tomography of the chest with contrast. 3D rendering (Not supervised by radiologist): MIP and/or 3D reconstructed images were created by the technologist. Radiation optimization: All CT scans at this facility use at least one of these dose optimization techniques: automated exposure control; mA and/or kV adjustment per patient size (includes targeted exams where dose is matched to clinical indication); or iterative reconstruction. Contrast material: OMNIPAQUE 350; Contrast volume: 100 ml; Contrast route: INTRAVENOUS (IV); COMPARISON: CT CHEST PE CTA 01/28/2020 11:49 AM FINDINGS: Lungs: Patchy pulmonary opacities may reflect scattered foci of atelectasis. A nonspecific pulmonary infectious process not excluded in the correct clinical setting. Pleural spaces: Moderate to large left and small to moderate right pleural effusion and dense associated basilar atelectasis. The pleural surfaces are thickened on the right compatible with a complex effusion. Hepatic cirrhosis appears to be present suggesting the effusions may reflect hepatic hydrothorax. Heart: Unremarkable. No cardiomegaly. No pericardial effusion. Aorta: Ascending thoracic aortic aneurysm measures 4.7 x 4.2 cm without dissection Lymph nodes: Unremarkable. No enlarged lymph nodes. Bones/joints: Unremarkable. No acute fracture. Soft tissues: Unremarkable. IMPRESSION: 1. Moderate to large left and small to moderate right pleural effusion and dense associated basilar atelectasis. The pleural surfaces are thickened on the right compatible with a complex effusion. Hepatic cirrhosis appears to be present suggesting the effusions may reflect hepatic hydrothorax. 2. Patchy pulmonary opacities may reflect scattered foci of atelectasis. A nonspecific pulmonary infectious process not excluded in the correct clinical setting. PROCEDURE INFORMATION: Exam: CT Abdomen And Pelvis With Contrast; Liver Exam date and time: 03/13/2021 7:02 AM Age: 80 years old Clinical indication: Other: Liver mass, distension, rapid heart rate, confusion; Additional info: Limited ability to hold breath TECHNIQUE: Imaging protocol: Computed tomography of the abdomen and pelvis with intravenous contrast. Exam focused on the liver. 3D rendering (Not supervised by radiologist): MIP and/or 3D reconstructed images were created by the technologist. Radiation optimization: All CT scans at this facility use at least one of these dose optimization techniques: automated exposure control; mA and/or kV adjustment per patient size (includes targeted exams where dose is matched to clinical indication); or iterative reconstruction. Contrast material: OMNIPAQUE 350; Contrast volume: 100 ml; Contrast route: INTRAVENOUS (IV); COMPARISON: CT CHEST PE CTA 01/28/2020 11:49 AM FINDINGS: Liver: Hepatic cirrhosis. . Gallbladder and bile ducts: Normal. No calcified stones. No ductal dilation. Pancreas: Normal. No ductal dilation. Spleen: Normal. No splenomegaly. Adrenals: Normal. No mass. Kidneys and ureters: Normal. No hydronephrosis. Stomach and bowel: Small bowel and colonic wall thickening may reflect portal hypertension versus a nonspecific enterocolitis. Intraperitoneal space: Portal hypertension manifest as large volume abdominal ascites, abdominal varices. Lymph nodes: Unremarkable. No enlarged lymph nodes. Vasculature: Prominent atherosclerotic calcifications of the abdominal aorta are noted. Bladder: Unremarkable. Reproductive: Unremarkable. Bones/joints: Unremarkable. No acute fracture. No dislocation. Soft tissues: Unremarkable. IMPRESSION: 1. Hepatic cirrhosis. 2. Small bowel and colonic wall thickening may reflect portal hypertension versus a nonspecific enterocolitis. 3. Portal hypertension manifest as large volume abdominal ascites, abdominal varices. Dictated and Authenticated by: Brian Weinstein MD. Ordering:ANDRE Thompson MD
[2021-03-13 08:31] LABS: COVID-19 PCR Negative (Negative)
[2021-03-13] MEDS: CEFEPIME 2 GM in Normal Saline 100 ML IVPB (09:56)
[2021-03-13] MEDS: VANCOMYCIN/WATER (PEG) 1.5 GM/300 ML BAG IVPB (10:56)
[2021-03-13] MEDS: dilTIAZem 125 MG in Normal Saline 100 ML IV (11:54)
--- NOTE | 2021-03-13 11:54 | NUR.NOTE ---
Nursing Note: [facility] transfer [facility], [facility] called @ [phone] stating that there were no beds at the [facility]. He also stated that the [facility] would cover any facility that the patient goes to due to having no beds. Lola Mcdaniels
[2021-03-13 12:00] LABS: Troponin I 0.18 ng/mL (<0.06)
[2021-03-13] MEDS: Lactulose 20 GM/30 ML CUP PO ×2 (12:33→20:00)
[2021-03-13 13:48] LABS: *AMPHETAMINES SCREEN URINE Negative (Negative); *BARBITURATES SCREEN URINE Negative (Negative); *BENZODIAZEPINES SCREEN URINE Negative (Negative); Cannabinoids THC Negative (Negative); Cocaine Screen,Urine Negative (Negative); METHADONE URINE SCREEN Negative (Negative); OPIATES URINE SCREEN Negative (Negative)
[2021-03-13 13:54] LABS: Tricyclic Antidepressants Negative (Negative)
[2021-03-13 16:06] LABS: Lactate 2.5 mmol/L (0.6-1.4)
[2021-03-13] MEDS: dilTIAZem 30 MG TAB PO (16:38)
--- NOTE | 2021-03-13 18:09 | W.MEDCONSULT ---
Date of service: 03/13/21 Time of Service: 18:10 Assessment and Plan Assessment and plan (1) Confusion: Status: Acute Assessment and plan: I think the change in mental status is indeed likely a manifestation of hepatic encephalopathy; unclear acute precipitant. Would agree in that regard with empiric coverage for possible SBP (would further agree that risk of paracentecis outweighs benefit at present). Suggest: 1. Encephalopathy: Lactulose for 2-3 soft BM/day continue Cefepime (august D/C Vanco) 2. AF/RVR: transition to PO Cardizem. may start with 30 q6 with target rate<100, may increase dose of Cardizem in 30 mg increments; if dose stabilizes may transition to equivalent long acting 3. Coagulopathy: continue hold Coumadin, may resume at lower dose once INR <3. Unknown (at this point) what contribution is from the Coumadin and what from the cirrhosis, may need lower dose of Coumadin (or perhaps none as events dictate) 4. CRF: HD as per usual schedule 5. Elevated trop: trend is flat, more likely than not due to CRF. Would recheck in AM. Code Status: would advise this be addressed once mental status clears. History of Present Illness History of Present Illness Chief Complaint: confusion Narrative: 80 male with CRF on HD, cirrhosis of unspecified etiology, h/o CAD, AF -- here with several days of increasing ascites and some mild confusion. In ER w/u of note for absence of fever, initial pulse 120s-130s (AF); gross ascites; and labs of note for WBC 8.2, Hct 27; Na 137, K 3.7; BuN 30, Creat 5.0; glucose 159; trop 0.18 x 2; EKG with minimal flattening of T waves in lateral chest leads compared to prior; CT head neg, CT abdomen with ascites, known liver mass; UDS negative. INR 4.0, ammonia 75. Patient given lactulose 30 gm; started on Cardizem qtt and then given additionally 30 PO; and 2 gm Cefepime along with 1.5 gm Vancomycin (out of concern for possible SBP; note that paracentecis was not performed due to coagulopathy). No transfer beds available tonight, patient will be staying ER pending bed availability. I was asked to consult on the various ongoing medical matters. Review of Systems All systems reviewed & are unremarkable except as noted in HPI and below PFS Active Problem List Colitis (Acute) Liver mass (Acute) Lung mass (Acute) Gallbladder mass (Acute) Renal mass (Acute) ESRD (end stage renal disease) on dialysis (Acute) Atrial fibrillation with RVR (Acute) ESRD on dialysis (Acute) Elevated troponin (Acute) Chest pain (Acute) Supratherapeutic INR (Acute) Anterior epistaxis (Acute) Acquired hypercoagulable state (Acute) Epistaxis (Acute) Encounter for removal of nasal packing (Acute) Vascular dialysis catheter in place (Acute) Medical History Diabetes ESRD (end stage renal disease) on dialysis GERD (gastroesophageal reflux disease) HTN (hypertension) Surgical procedures, elective Removal of temporary dialysis catheter/port by Dr Eric Rivera, [facility] Surgical History H/O aortic valve replacement History of cataract surgery History of ear surgery Removal of squamous tumor History of nephrectomy History of tonsillectomy and adenoidectomy Family History Father No problems noted. Mother No problems noted. Sister No problems noted. Brother Heart attack Social History Smoking/Tobacco Use Status: Former Tobacco Use Smoking risk assessment performed?: Yes Alcohol Intake: former Drug use: Never Substance use type: does not use Do you feel safe at home: Yes Do you feel safe in your relationship?: Yes Exam Narrative Exam Narrative: 105/58, 98, 36.6, 23, 93% RA. HEENT atraumatic; neck supple; lungs bibasilar rales, L>R; heart irr/irr; abdomen grosws ascites with increassed venous pattern, nontender; extremities w/o edema; neuro knows name, [facility] and 2020; tends to lose thread of conversation, with + asterixis, moves all 4s Results Last Vital Signs Temp 36.6 C 03/13/21 06:28 Pulse 88 03/13/21 16:45 Resp 23 03/13/21 16:50 BP 105/58 L 03/13/21 16:45 Pulse Ox 93 03/13/21 16:50 Labs Result diagrams: 03/13/21 06:35 03/13/21 06:35 Labs: Laboratory Results - last 24 hr 03/13/21 03/13/21 03/13/21 06:35 06:35 06:35 WBC 8.20 RBC 2.86 L Hgb 8.9 L Hct 27.8 L MCV 97.2 H MCH 31.1 MCHC 32.0 RDW 19.0 H Plt Count 141 MPV 12.0 H Immature Gran % 0.4 Neutrophils % 78.4 Lymphocytes % 9.9 Monocytes % 10.9 Eosinophils % 0.2 Basophils % 0.2 Nucleated RBC % 0 Absolute Neutrophils 6.43 Absolute Lymphocytes 0.81 L Absolute Monocytes 0.89 H Absolute Eosinophils 0.02 Absolute Basophils 0.02 PT INR APTT VBG Lactate Sodium 137 Potassium 3.7 Chloride 98 Carbon Dioxide 29.9 Anion Gap 9.1 BUN 30 H Creatinine 5.0 H* Estimated GFR/1.73 m2 11.25 Glucose 159 H Calcium 8.5 Magnesium 2.4 Total Bilirubin 2.6 H AST 120 H ALT 68 H Alkaline Phosphatase 371 H Ammonia 75 H Troponin I 0.18 H* Total Protein 7.2 Albumin 1.9 L Urine Opiates Screen Urine Methadone Screen Ur Barbiturates Screen Ur Tricyclics Screen Ur Amphetamines Screen U Benzodiazepines Scrn Urine Cocaine Screen Ur THC Screen Ethyl Alcohol < 3.0 COVID-19 Source SARS-CoV-2 (PCR) 03/13/21 03/13/21 03/13/21 06:35 07:05 07:15 WBC RBC Hgb Hct MCV MCH MCHC RDW Plt Count MPV Immature Gran % Neutrophils % Lymphocytes % Monocytes % Eosinophils % Basophils % Nucleated RBC % Absolute Neutrophils Absolute Lymphocytes Absolute Monocytes Absolute Eosinophils Absolute Basophils PT 38.8 H INR 4.0 H APTT 44.3 H VBG Lactate 3.5 H* Sodium Potassium Chloride Carbon Dioxide Anion Gap BUN Creatinine Estimated GFR/1.73 m2 Glucose Calcium Magnesium Total Bilirubin AST ALT Alkaline Phosphatase Ammonia Troponin I Total Protein Albumin Urine Opiates Screen Urine Methadone Screen Ur Barbiturates Screen Ur Tricyclics Screen Ur Amphetamines Screen U Benzodiazepines Scrn Urine Cocaine Screen Ur THC Screen Ethyl Alcohol COVID-19 Source Nasal/Nares SARS-CoV-2 (PCR) Negative 03/13/21 03/13/21 03/13/21 11:36 13:27 15:50 WBC RBC Hgb Hct MCV MCH MCHC RDW Plt Count MPV Immature Gran % Neutrophils % Lymphocytes % Monocytes % Eosinophils % Basophils % Nucleated RBC % Absolute Neutrophils Absolute Lymphocytes Absolute Monocytes Absolute Eosinophils Absolute Basophils PT INR APTT VBG Lactate 2.5 H* Sodium Potassium Chloride Carbon Dioxide Anion Gap BUN Creatinine Estimated GFR/1.73 m2 Glucose Calcium Magnesium Total Bilirubin AST ALT Alkaline Phosphatase Ammonia Troponin I 0.18 H* Total Protein Albumin Urine Opiates Screen Negative Urine Methadone Screen Negative Ur Barbiturates Screen Negative Ur Tricyclics Screen Negative Ur Amphetamines Screen Negative U Benzodiazepines Scrn Negative Urine Cocaine Screen Negative Ur THC Screen Negative Ethyl Alcohol COVID-19 Source SARS-CoV-2 (PCR)
[2021-03-13] MEDS: Normal Saline 100 ML 200 ML (19:09)
[2021-03-13] MEDS: CEFEPIME 2 GM in Normal Saline 50 ML IVPB (19:20)
== END 2021-03-13 21:09 | disposition short-term general hospital (02) ==
PROVIDERS: Emergency Medicine; Student in an Organized Health Care Education/Training Program; Emergency Provider Student in an Organized Health Care Education/Training Program; PCP Internal Medicine
DX: K72.90 Hepatic failure, unspecified without coma (principal); N18.6 End stage renal disease; Z99.2 Dependence on renal dialysis; I48.91 Unspecified atrial fibrillation; Z20.822 Contact with and (suspected) exposure to COVID-19; R41.0 Disorientation, unspecified; Z79.899 Other long term (current) drug therapy
CPT/HCPCS: 36415; 74177; 80053; 80307; 87635; 93005; 96365; 96366; 96367; 96374; 96375; 99283; 99285; 70450; 71260; 80320; 82140; 83605; 83735; 84484; 85025; 85610; 85730; 93010; J2405; J3490

== ENCOUNTER 2021-03-27 14:48 | Observation (INO) | payer MEDICARE, BC, SELFPAY ==
[2021-03-27] VITALS (29 sets, daily range): BP systolic 81–104; BP diastolic 50–64; PULSE 73–102; RESP 16–20; TEMP 35.8–36.6; O2SAT 96–100
--- NOTE | 2021-03-27 15:00 | RT.EKG_ITS ---
APPROVED REPORT Exam: Resting ECG Reason for Exam: weakness and SOB Patient Location: E HR:95 bpm ECG Measurements Heart Rate 95 AXIS WA [id number] P [id number] QRSd 106 QRS -59 QT 405 T 100 QTc 511 Conclusion Atrial fibrillation...V-rate 74-117, irreg A-activity Ventricular premature complex...V complex w/ short R-R interval Left anterior fascicular block...axis(240,-40), init forces inf Nonspecific T abnormalities, lateral leads...T <-0.10mV, I aVL V5 V6 Prolonged QT interval...QTc >500mS
--- NOTE | 2021-03-27 15:15 | DI.CT_ITS ---
Exam(s) CT CHEST/ABD/PEL W EXAM: CT CHEST/ABD/PEL W CLINICAL HISTORY: weakness, cough, abdominal pain, coccyx infection TECHNIQUE: Imaging Protocol: Axial computed tomography images with coronal and sagittal reformatted images were created and reviewed CONTRAST MATERIAL: Intravenous: Omnipaque 350 Contrast volume:100 mL Oral: No COMPARISON: CT ABD PELVIS WITH CONTRAST from 08/26/2017 CT ABD PELVIS WITH CONTRAST from 08/26/[address] CHEST/ABD/PEL W from 03/13/[address] CHEST/ABD/PEL W from 03/13/2021 FINDINGS: CHEST: Tracheobronchial tree: Patent where visualized. Pulmonary parenchyma: There is a large left pleural effusion with subjacent infiltrate. There has be en interval increase in size of the right pleural effusion. There is also enhancement of the pleural associated with right pleural effusion. There is a persistent stable area of consolidation in the p osterior aspect of the right lower lobe. There is also a right middle lobe infiltrate which appears stable. There are new scattered opacities in the lungs particularly the right upper and right middle lobes which may represent atelectasis or pneumonia. Visualized thyroid gland: Unremarkable. Mediastinum and Henna: There is persistent mediastinal adenopathy. There is a hiatal hernia. Pleura: Please see above. No pneumothorax. Heart: Cardiomegaly. Extensive coronary artery calcification. Aortic valve prosthesis. Calcificati on of the mitral valve. No pericardial effusion. Pulmonary arteries: Not adequately opacified for evaluation for pulmonary emboli. Aorta: There is a stable ascending thoracic aortic aneurysm. Atherosclerosis. No evidence of dissec tion. Lymph nodes: Please see above. Soft tissues: Unremarkable. Bones:Sternal wires are in place. Thoracic spine is within normal limits for the patient's age. ABDOMEN: Liver: There is a lobulated contour and an enlarged left lobe suggestive of hepatic cirrhosis. There is a stable cyst in the right lobe of the liver. No measurable mass. Portal, Superior Mesenteric, and Splenic Veins: Unremarkable. Gallbladder and Biliary Tract: The gallbladder is contracted. No biliary ductal dilatation. Pancreas: There is diffuse atrophy of the pancreas. Spleen: The spleen is enlarged. There is heterogeneous enhancement of the spleen. This may be due t o the timing of the contrast administration. Splenic mass or infarct cannot be entirely excluded. Adrenals: No masses seen. Kidneys: The kidneys appear small and stable. Surgical clips are again seen adjacent to the left kid richard. Scarring or atrophy of the lower pole of the left kidney is again noted and is stable. No radi odense stones or obstructive uropathy. Abdominal Aorta: Abdominal portion non-dilated. Atherosclerosis. Bowel: There has been progression of the thickening of the wall of the colon particularly the cecum a nd ascending colon. No evidence of appendicitis. Peritoneal Cavity: There is again seen a large amount of abdominal pelvic ascites. No free air. Lymph Nodes: Within normal limits. The soft tissue mass in the right upper quadrant measures 5.6 x 5. 0 cm. This compares to 6.4 x 4.8 cm on the examination from 03/13/2021. Bones: The bones are osteopenic. Multilevel degenerative changes are seen in the spine. No discrete lytic or sclerotic lesions are present. Soft Tissues: There is a fat and fluid containing left inguinal hernia. PELVIS: Bladder: Symmetric distention, no gross wall thickening. Reproductive Organs: Unremarkable as visualized. Lymph Nodes: Within normal limits. Bones: Within normal limits. IMPRESSION: 1. Interval worsening of the thickening in the right colon now involving more of the ascending colon. This may be secondary to the portal hypertension versus worsening colitis/mass. 2. Slight interval decrease in size of right upper quadrant soft tissue mass. 3. Hepatic cirrhosis and a large amount of abdominal pelvic ascites. 4. Heterogeneous enhancement of the spleen. This is likely due to contrast timing. Infarct or shelley s cannot be excluded. 5. Persistent large left pleural effusion. Increase in size of the small to moderate size right pleu ral effusion. There is enhancement of the pleura on the right suspicious for complex/infected effusi on. 6. Subjacent infiltrates in both lower lobes. New areas of consolidation in the right upper and righ t middle lobe. This may represent pneumonia. RADIATION DOSE DELIVERED: 1,249.8mGy.cm Total DLP DATA REPOSITORY: All CT scans at this facility are submitted to the National Radiology Data Registry (NRDR) Dose Index Registry (DIR) with the [employer] (ACR). RADIATION OPTIMIZATION: All CT scans at this facility use at least one of these dose optimization te chniques: automated exposure control; mA and/or kV adjustment per patient size (includes targeted exa ms where dose is matched to clinical indication); or iterative reconstruction.
--- NOTE | 2021-03-27 15:23 | W.ED.GENAD ---
Discharge Plan Disposition Patient Disposition[facility] Condition: Stable Discharge Details Chief Complaint: GenMedical Clinical Impression: HCAP (healthcare-associated pneumonia), General weakness, Coccyx pain, Cirrhosis Primary Care Provider: Chris Phillips ED Provider: Chris Allan Home Meds and New Rx's Prescriptions: No Action ferrous sulfate 325 mg (65 mg iron) tablet 325 mg PO Q2D PRNRF: 0 ascorbic acid (vitamin C) [Vitamin C] 500 mg Tablet,Chewable 500 mg PO DAILY RF: 0 nitroglycerin 0.4 mg tablet, sublingual 0.4 mg sublingual PRN PRNRF: 0 sevelamer carbonate 2.4 gram Powder In Packet 2.4 g PO TID RF: 0 atorvastatin 40 mg Tablet 80 mg PO QPM RF: 0 warfarin 2.5 mg Tablet 2 mg PO DAILY RF: 0 lactobacillus combo #5 150 mg (2 billion cell) Tablet,Delayed Release (Dr/Ec) 150 mg PO .WITH MEALS RF: 0 B complex-vitamin C-folic acid 0.8 mg Tablet 1 tab PO DAILY RF: 0 calcitriol 0.25 mcg Capsule 0.25 mcg PO QAM RF: 0 warfarin 1 mg Tablet 1 mg PO 4XW RF: 0 sucralfate [Carafate] 100 mg/mL Suspension 10 ml PO QID RF: 0 pantoprazole 40 mg Tablet,Delayed Release (Dr/Ec) 40 mg PO BID RF: 0 aspirin [Aspir-Low] 81 mg Tablet,Delayed Release (Dr/Ec) 81 mg PO DAILY RF: 0 ipratropium bromide 21 mcg (0.03 %) [place],Non-Aerosol 1 spray INTRANASAL DAILY PRNRF: 0 midodrine 10 mg Tablet 10 mg PO TID RF: 0 ammonium lactate 12 % Lotion 1 applic TOPICAL QD-BID PRNRF: 0 Medical Decision Making 80 yo male with hx of esrd on dialysis, afib on coumadin, who comes in with ems with general weakness. He was at [facility] and discharged on Saturday per patient and states he was discharged feeling weak and not able to care for himself. He has not been able to stand or walk around without assistance since and feeling more and more weak so came here for an evalaution. He is caox4 on exam. He denies headache or abdominal pain and no chest pain. He has had a cough and has pain around his coccyx per the patient. He is in no distress on exam. He has very mild tenderness in the rlq on exam. He does have an open coccyx wound with about 3cm surrounding erythema and I suspect this could be infected. No other rashes or lesions noted elsewhere. Will obtain blood cultures, cbc, lacatate and cmp and obtain ct chest/abd/pelvis to evaluate for pneumonia, worsening pleural effusion, less likely appendicitis and evaluate for any deep abscess near the coccyx pt stable, BP mildly low but was persistently low at [facility], [place] as well and started on midodrine for this. Lactate 3.4 and troponin 0.3 likely demand as his troponin was 0.18 and is chronically elevated, continues to deny chest pain and is anticoagulated. His CT shows likely pneumonia. Vanc and zosyn ordered. Ifeel he needs admission given luekocytosis and elevated lactate, unfortunately we can't admit dialysis patients here. [facility] and [facility] if [facility], will contact [facility], no capacity, will contact [employer] [employer] no capacity, will try [facility], [place] spoke with hospitalist Dr. Maddox at [facility] who accepts in transfer unfortunately they can't take him until tomorrow morning, they do state they will be able to take him tomorrow and given he is on dialysis is on the top of their list. I will discuss with hospitalist Dr. Soni about possibly admitting him overnight until transferred tomorrow Differential Diagnosis Differential Diagnosis: electrolyte abnormality, coccyx wound, pneumonia, anemia Medical Records Medical records reviewed: Yes I reviewed the patient's medical records. Imaging Data Radiologic Study: Attestation: I personally reviewed and interpreted this imaging study as follows: Imaging: CT Scan Radiologist's impression: 1. Worsening scattered areas of heterogeneous consolidation throughout the right lung suspicious for pneumonia. 2. Stable bilateral pleural effusions, moderate to large on the left and small on the right. Stable thickening and enhancement of the right lateral pleura raises suspicion for a complex effusion on the right. 3. Precarinal lymphadenopathy measuring 1.6 cm most likely reactive. 1. Hepatic cirrhosis. 2. Diffuse large abdominal and pelvic ascites. 3. Moderate thickening of the cecum has worsened, may be secondary to venous congestion from portal hypertension versus colitis. 4. Stable large left inguinal hernia containing fluid. Lab Data Lab results reviewed: Yes I reviewed the patient's lab results. ECG Data Attestation: I personally reviewed and interpreted this ECG (s) as follows: Prior ECG tracings: available for review Interpretation: afib, rate of 95, no acute st t wave ischemic findings HPI General Mode of arrival: EMS. Date/Time Provider Initiated Documentation: 03/27/21 15:00. Limitations to Documentation: no limitations. Information obtained by: patient. History of Present Illness 80 year old M presents to the emergency department with the chief complaint of general weakness, described as moderate, and it has been constant. No relieving factors improve symptom(s), No exacerbating factors reported . Patient notes other (coccyx pain). Patient did receive the following treatments prior to arrival, none Related Data Home Medications Medication Instructions Recorded Confirmed atorvastatin 80 mg PO QPM 05/02/18 03/27/21 warfarin 2 mg PO DAILY 06/05/18 03/27/21 lactobacillus combo #5 150 mg PO .WITH MEALS 09/21/18 03/27/21 B complex-vitamin C-folic acid 1 tab PO DAILY 01/28/20 03/27/21 ascorbic acid (vitamin C) [Vitamin 500 mg PO DAILY 12/14/20 03/27/21 C] nitroglycerin 0.4 mg SUBLINGUAL PRN PRN 12/14/20 03/27/21 calcitriol 0.25 mcg PO QAM 12/17/20 03/27/21 ferrous sulfate 325 mg (65 mg 325 mg PO Q2D PRN 01/02/21 03/27/21 iron) tablet sevelamer carbonate 2.4 g PO TID 01/14/21 03/27/21 warfarin 1 mg PO 4XW 02/07/21 03/27/21 pantoprazole 40 mg PO BID 03/13/21 03/27/21 sucralfate [Carafate] 10 ml PO QID 03/13/21 03/27/21 ammonium lactate 1 applic TOPICAL QD-BID PRN 03/27/21 03/27/21 aspirin [Aspir-Low] 81 mg PO DAILY 03/27/21 03/27/21 ipratropium bromide 1 spray INTRANASAL DAILY PRN 03/27/21 03/27/21 midodrine 10 mg PO TID 03/27/21 03/27/21 Allergies Allergy/AdvReac Type Severity Reaction Status Date / Time No Known Allergies Allergy Unverified 03/27/21 15:46 General Stated Complaint: GenMedical JOHAN: 2 Review of Systems All systems reviewed & are unremarkable except as noted in HPI and below Constitutional Constitutional: Denies chills and Denies fever(s) Cardiovascular Cardiovascular: Denies chest pain and Denies dyspnea Respiratory Respiratory: Denies dyspnea Gastrointestinal Gastrointestinal: Denies nausea and Denies vomiting Genitourinary Genitourinary: Denies dysuria Musculoskeletal Musculoskeletal: Denies joint swelling ON LICENSE OF [facility] Active Problem List Colitis (Acute) Liver mass (Acute) Lung mass (Acute) Gallbladder mass (Acute) Renal mass (Acute) ESRD (end stage renal disease) on dialysis (Acute) Atrial fibrillation with RVR (Acute) ESRD on dialysis (Acute) Elevated troponin (Acute) Chest pain (Acute) Supratherapeutic INR (Acute) Anterior epistaxis (Acute) Acquired hypercoagulable state (Acute) Epistaxis (Acute) Encounter for removal of nasal packing (Acute) Vascular dialysis catheter in place (Acute) Medical History Diabetes ESRD (end stage renal disease) on dialysis GERD (gastroesophageal reflux disease) HTN (hypertension) Surgical procedures, elective Removal of temporary dialysis catheter/port by Dr Eric Rivera, [facility] Surgical History H/O aortic valve replacement History of cataract surgery History of ear surgery Removal of squamous tumor History of nephrectomy History of tonsillectomy and adenoidectomy Family History Father No problems noted. Mother No problems noted. Sister No problems noted. Brother Heart attack Social History Smoking/Tobacco Use Status: Former Tobacco Use Smoking risk assessment performed?: Yes Alcohol Intake: former Drug use: Never Substance use type: does not use Do you feel safe at home: Yes Do you feel safe in your relationship?: Yes Exam Const General: no acute distress Orientation: alert HENMT Head: normal to inspection Ears: external ears normal General nose exam: external nose normal Mouth: moist mucous membranes Eyes General: appearance normal, both eyes and all related structures Neck Neck: normal visual inspection Resp Effort & Inspection: normal respiratory effort and able to speak in complete sentences Cardio Rate: regular rate GI Palpation: soft Back/Spine/Pelvis Back: no CVA tenderness Pelvis: no buttock ecchymosis Skin General skin exam: no mottling Neuro General: patient alert and patient oriented x3 Extrem General: normal to inspection Psych Mental Status: mental status grossly normal Course Vital Signs Vital signs: Vital Signs Temperature 36.6 C 03/27/21 15:01 Pulse 73 03/27/21 15:01 Respiratory Rate 16 03/27/21 15:01 Blood Pressure 93/57 L 03/27/21 15:01 Pulse Oximetry 96 03/27/21 15:01 Temperature 36.6 C 03/27/21 15:01 Temperature Source Oral 03/27/21 15:01 Pulse 73 03/27/21 15:01 Respiratory Rate 16 03/27/21 15:01 Respiratory Effort 03/27/21 15:01 Blood Pressure 93/57 L 03/27/21 15:01 Blood Pressure Position Supine 03/27/21 15:01 Pulse Oximetry 96 03/27/21 15:01 Oxygen Delivery Method Nasal Cannula 03/27/21 15:01 Oxygen Flow Rate 2 03/27/21 15:01 Pain Level 3 03/27/21 15:01 Comment 03/27/21 15:01 Lab/Test Results Lab/Test Results: 03/27/21 15:19 Blood Blood Culture - Pending 03/27/21 15:19 Blood Blood Culture - Pending
[2021-03-27 15:38] LABS: Source Nasal/Nares
[2021-03-27 15:39] LABS: Absolute Lymphocyte Count 1.08 10^3/uL (1.2-3.4); Absolute Monocyte Count 1.01 10^3/uL (0.1-0.8); Basophils % 0.2; Eosinophils % 0.2; HGB 8.1 g/dL (13.5-17.5); Immature Grans % 0.8; Lactate 3.4 mmol/L (0.6-1.4); Lymphocytes % 8.1; MCH 32.1 pg (27.0-33.0); MCHC 32.4 % (32.0-36.0); MCV 99.2 fL (80-95); MPV 11.3 fL (8.0-11.0); Monocytes % 7.6; Neutrophils % 83.1; Nucleated RBC 0 %; Platelet Count 204 10^3/uL (130-400); RBC 2.52 10^6/uL (4.36-5.78); RDW 21.1 % (11.8-14.1); RDW-SD 74.4 fL; WBC 13.31 10^3/uL (4.4-10.8)
[2021-03-27 15:47] LABS: Ammonia 32 umol/L (11-32)
[2021-03-27 15:49] LABS: Absolute Basophil Count 0.03 10^3/uL (0.0-0.2); Absolute Eosinophil Count 0.03 10^3/uL (0.0-0.7); Absolute Neutrophil Count 11.06 10^3/uL (1.2-6.7)
[2021-03-27 15:51] LABS: Diff Comment RBC Morph Reviewed
[2021-03-27 15:56] LABS: PTT Activated 52.2 sec (21.0-27.5)
[2021-03-27 16:02] LABS: Anisocytosis 2+; Macrocytosis 2+
[2021-03-27 16:05] LABS: ALT 77 U/L (16-63); AST 208 U/L (15-37); Albumin 1.4 g/dL (3.4-5.0); Alkaline Phosphatase 328 U/L (46-116); Anion Gap 5.1 mmol/L (3-11); BUN 32 mg/dL (7-18); Bilirubin, Direct 1.3 mg/dL (0.0-0.2); Bilirubin, Total 1.7 mg/dL (0.2-1.0); CO2 30.9 mmol/L (21.0-32.0); Chloride 99 mmol/L (98-107); Glucose 182 mg/dL (74-106); Lipase 168 U/L (73-393); Magnesium 2.3 mg/dL (1.8-2.4); Potassium 3.9 mmol/L (3.5-5.1); Sodium 135 mmol/L (136-145); TSH (W/Ref FT4) 5.38 uIU/mL (0.36-3.74); Total Protein 6.2 g/dL (6.4-8.2)
[2021-03-27 16:11] LABS: CREATININE 5.1 mg/dL (0.70-1.30); ETHANOL BLOOD < 3.0 mg/dL (<10)
[2021-03-27 16:12] LABS: Troponin I 0.31 ng/mL (<0.06)
[2021-03-27 16:22] LABS: COVID-19 PCR Negative (Negative)
[2021-03-27] MEDS: Normal Saline 1,000 ML 1000 ML IV (16:23)
[2021-03-27 16:28] LABS: FREE T4 1.24 ng/dL (0.76-1.46)
[2021-03-27] MEDS: Omnipaque 350 MG/ML 100 ML BTL IJ (16:54)
--- NOTE | 2021-03-27 17:30 | DI.VRAD_ITS ---
PROCEDURE INFORMATION: Exam: CT Chest With Contrast; Diagnostic Exam date and time: 03/27/2021 3:23 PM Age: 80 years old Clinical indication: Other: Not specified; Patient HX: Weakness, cough, abdominal pain, coccyx infection TECHNIQUE: Imaging protocol: Diagnostic computed tomography of the chest with contrast. 3D rendering (Not supervised by radiologist): MIP and/or 3D reconstructed images were created by the technologist. COMPARISON: CT CHEST/ABD/PEL W 03/13/2021 7:25 AM FINDINGS: Lungs: Worsening scattered areas of heterogeneous consolidation throughout the right lung suspicious for pneumonia. Stable consolidation of the posterior right lower lobe most likely compatible with rounded atelectasis. Pleural spaces: Stable bilateral pleural effusions, moderate to large on the left and small on the right. Posterior left lower lobe atelectasis most likely secondary to compression from large pleural effusion. Stable thickening and enhancement of the right lateral pleura raises suspicion for a complex effusion. Heart: Severe atherosclerotic calcifications of the coronary arteries. Aorta: Unremarkable. No aortic aneurysm. Other arteries: Atherosclerotic calcifications of the mitral and aortic valve. Status post aortic valve replacement. The vasculature demonstrates diffuse marked atherosclerotic calcification. Lymph nodes: Precarinal lymphadenopathy measuring 1.6 cm most likely reactive. Bones/joints: Unremarkable. No acute fracture. Soft tissues: Unremarkable. IMPRESSION: 1. Worsening scattered areas of heterogeneous consolidation throughout the right lung suspicious for pneumonia. 2. Stable bilateral pleural effusions, moderate to large on the left and small on the right. Stable thickening and enhancement of the right lateral pleura raises suspicion for a complex effusion on the right. 3. Precarinal lymphadenopathy measuring 1.6 cm most likely reactive. PROCEDURE INFORMATION: Exam: CT Abdomen And Pelvis With Contrast Exam date and time: 03/27/2021 3:23 PM Age: 80 years old Clinical indication: Other: Not specified; Patient HX: Weakness, cough, abdominal pain, coccyx infection TECHNIQUE: Imaging protocol: Computed tomography of the abdomen and pelvis with contrast. 3D rendering (Not supervised by radiologist): MIP and/or 3D reconstructed images were created by the technologist. COMPARISON: CT CHEST/ABD/PEL W 03/13/2021 7:25 AM FINDINGS: Liver: Punctate hypodensity within segment 8 of the liver most likely compatible with a tiny cyst. The liver is shrunken and demonstrates mild nodular contours most likely compatible with cirrhosis. Gallbladder and bile ducts: Normal. No calcified stones. No ductal dilation. Pancreas: Diffusely atrophic pancreas. Spleen: Heterogeneous appearance of the spleen most likely compatible with the phase of contrast administration. Adrenal glands: Normal. No mass. Kidneys and ureters: Bilateral atrophic kidneys, unchanged. Stomach and bowel: Worsening thickening of the cecum may be compatible with venous engorgement from portal hypertension versus colitis.. No obstruction. No mucosal thickening. Appendix: No evidence of appendicitis. Intraperitoneal space: Diffuse large abdominal and pelvic ascites. Vasculature: The vasculature demonstrates diffuse marked atherosclerotic calcification. Lymph nodes: Unremarkable. No enlarged lymph nodes. Urinary bladder: Unremarkable as visualized. Reproductive: Unremarkable as visualized. Bones/joints: The osseus structures demontrate diffuse osteopenia. Soft tissues: Stable large left inguinal hernia containing fluid. IMPRESSION: 1. Hepatic cirrhosis. 2. Diffuse large abdominal and pelvic ascites. 3. Moderate thickening of the cecum has worsened, may be secondary to venous congestion from portal hypertension versus colitis. 4. Stable large left inguinal hernia containing fluid. Dictated and Authenticated by: Deven Mccollum MD. Ordering:CIARA Perez MD
[2021-03-27] MEDS: PIPERACILLIN/TAZO 4.5 GM in Normal Saline 100 ML IVPB (17:47)
[2021-03-27] MEDS: VANCOMYCIN/WATER (PEG) 1 GM/200 ML BAG IV (18:16)
[2021-03-27 19:58] LABS: Lactate 1.8 mmol/L (0.6-1.4)
--- NOTE | 2021-03-27 20:05 | HPE_ITS ---
Date of service: 03/27/21 Time of Service: 20:05 Assessment and Plan Assessment and plan (1) Weakness: Status: Acute Assessment and plan: Weakness, likely multifactorial ins setting of CRF and cirrhosis and evident malnutrition. There may be a pneumonia and will cover with antibiotics. At the same time I note that the report of a stable pleural effusion would indicate rapid re-accumulation in light of recent thoracentesis. Will be transferred in AM to [facility] for ongoing care. 1. Pneumonia: Vanco/Zosyn 2. AF: INR 4.0, will hold Coumadin. Stated by [facility] that he was on Lopressor but not on our list here. Will clarify. 3. S/P AVR, on Coumadin. As above INR 4.0, Coumadin on hold. 4. CRF: HD in AM at [facility] 5. Chronic hypotension: continue Midodrine Reviewed ADs, requests Full Code History of Present Illness History of Present Illness Chief Complaint: weakness Narrative: 80 male with CRF on HD, cirrhosis, AF -- here last week with encephalopathy, worsening ascites and AF/RVR. Transferred to [facility] direct from ER. Had both paracentecis and thoracentecis, and rate controlled with beta kenneth. Had persitent hypotension and started on Mididrine. D/C'ed 3 days [employer]. Stares he never felt well but just wanted to get out of there and now acknowledges he needs a course of rehab for strengthening. This is his complaint today, just ongoing generalized weakness. He did endorse a cough to ER, but to me he states that this is chronic and unchanged. At any rate w/u in ER of note for white count of 13, stable bilateral pleural effusions (NB, stable in reference to prior here last week, since which time he has had thoracentecis as above), and worsening of scattered densities right lung suspicious for pneumonia. He was given Vanco and Zosyn. He was accepted for tra nsfer in AM to [facility]. I was asked to evaluate for admission overnight until transfer. Review of Systems All systems reviewed & are unremarkable except as noted in HPI and below PFSH Active Problem List Encephalopathy, hepatic (Acute) ESRD (end stage renal disease) (Acute) Atrial fibrillation (Chronic) HCAP (healthcare-associated pneumonia) (Acute) General weakness (Acute) Coccyx pain (Acute) Cirrhosis (Acute) Confusion (Acute) Colitis (Acute) Liver mass (Acute) Lung mass (Acute) Gallbladder mass (Acute) Renal mass (Acute) ESRD (end stage renal disease) on dialysis (Acute) Atrial fibrillation with RVR (Acute) ESRD on dialysis (Acute) Elevated troponin (Acute) Chest pain (Acute) Supratherapeutic INR (Acute) Anterior epistaxis (Acute) Acquired hypercoagulable state (Acute) Epistaxis (Acute) Encounter for removal of nasal packing (Acute) Vascular dialysis catheter in place (Acute) Medical History Diabetes ESRD (end stage renal disease) on dialysis GERD (gastroesophageal reflux disease) HTN (hypertension) Surgical procedures, elective Removal of temporary dialysis catheter/port by Dr Eric Rivera, [facility] Surgical History H/O aortic valve replacement History of cataract surgery History of ear surgery Removal of squamous tumor History of nephrectomy History of tonsillectomy and adenoidectomy Family History Father No problems noted. Mother No problems noted. Sister No problems noted. Brother Heart attack Social History Smoking/Tobacco Use Status: Former Tobacco Use Smoking risk assessment performed?: Yes Alcohol Intake: former Drug use: Never Substance use type: does not use Do you feel safe at home: Yes Do you feel safe in your relationship?: Yes Meds Allergies and Home Medications Allergies Allergy/AdvReac Type Severity Reaction Status Date / Time No Known Allergies Allergy Unverified 03/27/21 15:46 Home Medications Medication Instructions Recorded Confirmed Type atorvastatin 80 mg PO QPM 05/02/18 03/27/21 History warfarin 2 mg PO DAILY 06/05/18 03/27/21 History lactobacillus combo #5 150 mg PO .WITH MEALS 09/21/18 03/27/21 History B complex-vitamin C-folic acid 1 tab PO DAILY 01/28/20 03/27/21 History ascorbic acid (vitamin C) [Vitamin 500 mg PO DAILY 12/14/20 03/27/21 History C] nitroglycerin 0.4 mg SUBLINGUAL PRN PRN 12/14/20 03/27/21 History calcitriol 0.25 mcg PO QAM 12/17/20 03/27/21 History ferrous sulfate 325 mg (65 mg 325 mg PO Q2D PRN 01/02/21 03/27/21 History iron) tablet sevelamer carbonate 2.4 g PO TID 01/14/21 03/27/21 History warfarin 1 mg PO 4XW 02/07/21 03/27/21 History pantoprazole 40 mg PO BID 03/13/21 03/27/21 History sucralfate [Carafate] 10 ml PO QID 03/13/21 03/27/21 History ammonium lactate 1 applic TOPICAL QD-BID PRN 03/27/21 03/27/21 History aspirin [Aspir-Low] 81 mg PO DAILY 03/27/21 03/27/21 History ipratropium bromide 1 spray INTRANASAL DAILY PRN 03/27/21 03/27/21 History midodrine 10 mg PO TID 03/27/21 03/27/21 History Exam Narrative Exam Narrative: 97/56, 102, 36.3, 18, 98% RA. HEENT atraumatic; neck supple; lungs diminished LLL; heart irr/irr; abdomen protruberant with increase venous pattern, non-tender; extremities w/o edema; neuro Ox3, lucid, moves all 4s but generally 4/5 strength throughout; skin, erythema over lower sacrum with 3-4 mm grade 2 ulcer Results Labs Result diagrams: 03/27/21 15:27 03/27/21 15:27 Labs: Laboratory Results - last 24 hr 03/27/21 03/27/21 03/27/21 15:22 15:27 15:27 WBC RBC Hgb Hct MCV MCH MCHC RDW Plt Count MPV Immature Gran % Neutrophils % Lymphocytes % Monocytes % Eosinophils % Basophils % Nucleated RBC % Absolute Neutrophils Absolute Lymphocytes Absolute Monocytes Absolute Eosinophils Absolute Basophils RBC Morphology Anisocytosis Macrocytosis PT INR APTT VBG Lactate Sodium 135 L Potassium 3.9 Chloride 99 Carbon Dioxide 30.9 Anion Gap 5.1 BUN 32 H Creatinine 5.1 H* Estimated GFR/1.73 m2 11.00 Glucose 182 H Calcium 8.0 L Magnesium 2.3 Total Bilirubin 1.7 H Conjugated Bilirubin 1.3 H AST 208 H ALT 77 H Alkaline Phosphatase 328 H Ammonia 32 Troponin I 0.31 H* Total Protein 6.2 L Albumin 1.4 L Lipase 168 TSH 5.38 H Free T4 1.24 Ethyl Alcohol < 3.0 COVID-19 Source Nasal/Nares SARS-CoV-2 (PCR) Negative 03/27/21 03/27/21 03/27/21 15:27 15:27 15:27 WBC 13.31 H RBC 2.52 L Hgb 8.1 L Hct 25.0 L MCV 99.2 H MCH 32.1 MCHC 32.4 RDW 21.1 H Plt Count 204 MPV 11.3 H Immature Gran % 0.8 Neutrophils % 83.1 Lymphocytes % 8.1 Monocytes % 7.6 Eosinophils % 0.2 Basophils % 0.2 Nucleated RBC % 0 Absolute Neutrophils 11.06 H Absolute Lymphocytes 1.08 L Absolute Monocytes 1.01 H Absolute Eosinophils 0.03 Absolute Basophils 0.03 RBC Morphology See Below Anisocytosis 2+ Macrocytosis 2+ PT 39.0 H INR 4.0 H APTT 52.2 H VBG Lactate 3.4 H* Sodium Potassium Chloride Carbon Dioxide Anion Gap BUN Creatinine Estimated GFR/1.73 m2 Glucose Calcium Magnesium Total Bilirubin Conjugated Bilirubin AST ALT Alkaline Phosphatase Ammonia Troponin I Total Protein Albumin Lipase TSH Free T4 Ethyl Alcohol COVID-19 Source SARS-CoV-2 (PCR) 03/27/21 19:47 WBC RBC Hgb Hct MCV MCH MCHC RDW Plt Count MPV Immature Gran % Neutrophils % Lymphocytes % Monocytes % Eosinophils % Basophils % Nucleated RBC % Absolute Neutrophils Absolute Lymphocytes Absolute Monocytes Absolute Eosinophils Absolute Basophils RBC Morphology Anisocytosis Macrocytosis PT INR APTT VBG Lactate 1.8 H Sodium Potassium Chloride Carbon Dioxide Anion Gap BUN Creatinine Estimated GFR/1.73 m2 Glucose Calcium Magnesium Total Bilirubin Conjugated Bilirubin AST ALT Alkaline Phosphatase Ammonia Troponin I Total Protein Albumin Lipase TSH Free T4 Ethyl Alcohol COVID-19 Source SARS-CoV-2 (PCR) Last Vital Signs Temp 36.3 C L 03/27/21 18:26 Pulse 102 H 03/27/21 19:49 Resp 18 03/27/21 19:49 BP 97/56 L 03/27/21 19:49 Pulse Ox 98 03/27/21 19:49
--- NOTE | 2021-03-27 20:09 | SUR.PHASEI ---
pt repositioned for comfort pt aox4 no acute distress noted
[2021-03-27 20:42] LABS: Troponin I 0.29 ng/mL (<0.06)
[2021-03-28] MEDS: PIPERACILLIN/TAZO 3.375 GM in Normal Saline 50 ML IVPB (04:27)
[2021-03-28] MEDS: Midodrine 2.5 MG TAB 10 MG PO ×2 (08:12→13:52)
[2021-03-28] MEDS: Calcitriol 0.25 MCG CAP PO (08:13)
[2021-03-28] MEDS: Lactobacillus Acidophilus CAP 1 CAP PO (08:13)
[2021-03-28] MEDS: Pantoprazole 40 MG TABCR PO (08:14)
[2021-03-28] MEDS: Sucralfate 1 GM TAB PO ×2 (08:14→12:03)
[2021-03-28] MEDS: Normal Saline Flush 10 ML SYR IVP (08:15)
[2021-03-28 08:24] LABS: Abs Immature Grans 0.09 10^3/uL (0.0-0.06); Absolute Eosinophil Count 0.14 10^3/uL (0.0-0.7); Absolute Lymphocyte Count 0.89 10^3/uL (1.2-3.4); Absolute Monocyte Count 1.02 10^3/uL (0.1-0.8); Absolute Neutrophil Count 9.27 10^3/uL (1.2-6.7); Basophils % 0.3; Eosinophils % 1.2; HCT 26.2 % (40.0-50.0); HGB 8.7 g/dL (13.5-17.5); Immature Grans % 0.8; Lymphocytes % 7.8; MCH 32.3 pg (27.0-33.0); MCHC 33.2 % (32.0-36.0); MCV 97.4 fL (80-95); MPV 11.6 fL (8.0-11.0); Monocytes % 8.9; Nucleated RBC 0 %; Platelet Count 172 10^3/uL (130-400); RBC 2.69 10^6/uL (4.36-5.78); RDW 20.8 % (11.8-14.1); RDW-SD 71.7 fL; WBC 11.45 10^3/uL (4.4-10.8)
[2021-03-28 08:25] LABS: Absolute Basophil Count 0.03 10^3/uL (0.0-0.2)
[2021-03-28 08:27] LABS: Anion Gap 6.9 mmol/L (3-11); BUN 35 mg/dL (7-18); CO2 29.1 mmol/L (21.0-32.0); Calcium 8.2 mg/dL (8.5-10.1); Chloride 100 mmol/L (98-107); Estimated GFR 9.87 (mL/min/1.73m2); Glucose 95 mg/dL (74-106); Magnesium 2.2 mg/dL (1.8-2.4); Potassium 4.4 mmol/L (3.5-5.1); Sodium 136 mmol/L (136-145)
[2021-03-28 08:29] LABS: CREATININE 5.6 mg/dL (0.70-1.30)
[2021-03-28 08:31] VITALS: BP 98/51; PULSE 103; RESP 18; TEMP 37.1; O2SAT 96
--- NOTE | 2021-03-28 11:16 | DSE_ITS ---
Date of service: 03/28/21 Time of Service: 11:16 DS: Diagnosis Discharge Diagnosis (1) HCAP (healthcare-associated pneumonia): Status: Acute (2) ESRD (end stage renal disease): Status: Acute (3) Atrial fibrillation: Status: Chronic (4) Supratherapeutic INR: Status: Acute (5) Elevated troponin: Status: Acute Asessment and Plan: in Setting of ESRD; not felt to represent ACS. (6) Bilateral pleural effusion: Status: Acute (7) Cirrhosis: Status: Acute (8) Transaminitis: Status: Acute (9) Weakness: Status: Acute Asessment and Plan: Generalized (10) COVID-19 ruled out by laboratory testing: Status: Acute Discharge Plan Disposition Patient Disposition: [facility] Condition: Stable Discharge Details Reason For Visit: Weakness,Pneumonia Admit Date/Time: 03/27/21 20:28 Admit Provider: Mikey Soni Attending Provider: Mikey Soni Primary Care Provider: Chirs Phillips Hospital Course Hospital Course: Mr Leach is a 80 year old male with PMHx of ESRD on HD, Afib on coumadin, chronic hypotension on midodrine, bilateral pleural effusions previously requiring pleuracenthesis, cirrhosis, who was a patient on [facility] hospitalist service from 03/27/21 until 03/28/21 while awaiting a bed at [facility], having presented with generalized weakness and being found to have a right lung pneumonia by CT. For this, he was initiated on vancomycin/zosyn. It is expected that he will require hemodialysis during this admission and this service is not available at our facility. [facility] was also contacted and Dr Maddox agreed to accept this patient pending bed availability today. Additionally on this admission, the patient appears to have a slight elevation of his troponin, better than on prior admission. This is not felt to represent an ACS. His bilateral pleural effiusions, which in the past were treated with thoracenthesis, have re- accumulated. He also has evidence of elevated LFTs which, in combination with ascites seen on CT, likely represents passive congestion of the liver. On presentation, his INR was 4.0 and coumadin was held. There is no evidence of active bleeding. He is medically stable for transfer to [facility] today. Care for patient as well as completion of his transfer summary on day of discharge took 45 minutes. Please, look at MAR for list of the patient's in-patient medications as the list below reflects his outpatient prescriptions. Home Meds and New Rx's Prescriptions: No Action ferrous sulfate 325 mg (65 mg iron) tablet 325 mg PO Q2D PRNRF: 0 ascorbic acid (vitamin C) [Vitamin C] 500 mg Tablet,Chewable 500 mg PO DAILY RF: 0 nitroglycerin 0.4 mg tablet, sublingual 0.4 mg sublingual PRN PRNRF: 0 sevelamer carbonate 2.4 gram Powder In Packet 2.4 g PO TID RF: 0 atorvastatin 40 mg Tablet 80 mg PO QPM RF: 0 warfarin 2.5 mg Tablet 2 mg PO DAILY RF: 0 lactobacillus combo #5 150 mg (2 billion cell) Tablet,Delayed Release (Dr/Ec) 150 mg PO .WITH MEALS RF: 0 B complex-vitamin C-folic acid 0.8 mg Tablet 1 tab PO DAILY RF: 0 calcitriol 0.25 mcg Capsule 0.25 mcg PO QAM RF: 0 warfarin 1 mg Tablet 1 mg PO 4XW RF: 0 sucralfate [Carafate] 100 mg/mL Suspension 10 ml PO QID RF: 0 pantoprazole 40 mg Tablet,Delayed Release (Dr/Ec) 40 mg PO BID RF: 0 aspirin [Aspir-Low] 81 mg Tablet,Delayed Release (Dr/Ec) 81 mg PO DAILY RF: 0 ipratropium bromide 21 mcg (0.03 %) [place],Non-Aerosol 1 spray INTRANASAL DAILY PRNRF: 0 midodrine 10 mg Tablet 10 mg PO TID RF: 0 ammonium lactate 12 % Lotion 1 applic TOPICAL QD-BID PRNRF: 0 Discharge Instructions Instructions: Bacterial Pneumonia (DC) Referrals: Chris Phillips [Primary Care Provider] - Activity:: Activity as Tolerated Equipment/Supplies:: No Equipment Needed Diet:: renal diet Discharge Orders Discharge Orders: Discharge Order (Routine); Ordered 03/28/21 Ordered By: Conchita Yee DS: Summary Time Spent with Patient providing and/or coordinating discharge services: Greater than 30 minutes Status at Discharge Functional status at discharge: uses cane/walker Overall status at discharge: patient is not back to baseline Mental Status: mental status grossly normal Speech and Movement: speech and movement normal Mood: congruent mood Affect: normal affect Exam Narrative Exam Narrative: General: Pleasant elderly male who appears uncomfortable in bed, A&Ox3 HEENT: EOMI, dry MM Heart: irregularly irregular rhythm, +GUERA Lungs: Diminished breath sounds at B bases Abdomen: soft, distended with ascites, nontender Extremities: +1 BLE's, no c/c. Psych Mental Status: mental status grossly normal Speech and Movement: speech and movement normal Mood: congruent mood DS: Data Vitals/I&O Vitals and I&O: Vital Signs Temperature 37.1 C 03/28/21 08:31 Temperature Source Tympanic 03/28/21 08:31 Pulse 103 H 03/28/21 08:31 Pulse Rhythm Irregular 03/28/21 09:15 Pulse 87 03/27/21 18:40 Respiratory Rate 18 03/28/21 08:31 Respiratory Effort 03/28/21 09:15 Respiratory Depth Normal 03/28/21 09:15 Respiratory Pattern Normal 03/28/21 09:15 Blood Pressure 98/51 L 03/28/21 08:31 Blood Pressure Position Supine 03/27/21 15:01 Pulse Oximetry 96 03/28/21 08:31 Oxygen Delivery Method Room Air 03/28/21 08:31 Oxygen Flow Rate 0 03/28/21 08:31 Pain Level 0 03/28/21 08:31 Comment 03/27/21 15:01 Intake & Output 03/27/21 03/27/21 03/28/21 11:59 23:59 11:59 Intake Total 1100 / 1100 250 / 250 Balance 1100 / 1100 250 / 250 Weight 77.111 kg Intake: IV 1100 / 1100 50 / 50 Oral 200 / 200 Other: Urine Appearance Clear Data Completed and Pending Completed studies during hospitalization [Text1]: CT chest: 1. Worsening scattered areas of heterogeneous consolidation throughout the right lung suspicious for pneumonia. 2. Stable bilateral pleural effusions, moderate to large on the left and small on the right. Stable thickening and enhancement of the right lateral pleura raises suspicion for a complex effusion on the right. 3. Precarinal lymphadenopathy measuring 1.6 [address] most likely reactive. CT abdomen/pelvis: 1. Hepatic cirrhosis. 2. Diffuse large abdominal and pelvic ascites. 3. Moderate thickening of the cecum has worsened, may be secondary to venous congestion from portal hypertension versus colitis. 4. Stable large left inguinal hernia containing fluid. Labs on day of discharge: Labs from last 24 hours 03/28/21 03/28/21 03/27/21 08:09 08:09 19:47 WBC 11.45 H RBC 2.69 L Hgb 8.7 L Hct 26.2 L MCV 97.4 H MCH 32.3 MCHC 33.2 RDW 20.8 H Plt Count 172 MPV 11.6 H Immature Gran % 0.8 Neutrophils % 81.0 Lymphocytes % 7.8 Monocytes % 8.9 Eosinophils % 1.2 Basophils % 0.3 Nucleated RBC % 0 Absolute Neutrophils 9.27 H Absolute Lymphocytes 0.89 L Absolute Monocytes 1.02 H Absolute Eosinophils 0.14 Absolute Basophils 0.03 RBC Morphology Anisocytosis Macrocytosis PT INR APTT VBG Lactate 1.8 H Sodium 136 Potassium 4.4 Chloride 100 Carbon Dioxide 29.1 Anion Gap 6.9 BUN 35 H Creatinine 5.6 H* Estimated GFR/1.73 m2 9.87 Glucose 95 D Calcium 8.2 L Magnesium 2.2 Total Bilirubin Conjugated Bilirubin AST ALT Alkaline Phosphatase Ammonia Troponin I Total Protein Albumin Lipase TSH Free T4 Ethyl Alcohol COVID-19 Source SARS-CoV-2 (PCR) 03/27/21 03/27/21 03/27/21 19:47 15:27 15:27 WBC 13.31 H RBC 2.52 L Hgb 8.1 L Hct 25.0 L MCV 99.2 H MCH 32.1 MCHC 32.4 RDW 21.1 H Plt Count 204 MPV 11.3 H Immature Gran % 0.8 Neutrophils % 83.1 Lymphocytes % 8.1 Monocytes % 7.6 Eosinophils % 0.2 Basophils % 0.2 Nucleated RBC % 0 Absolute Neutrophils 11.06 H Absolute Lymphocytes 1.08 L Absolute Monocytes 1.01 H Absolute Eosinophils 0.03 Absolute Basophils 0.03 RBC Morphology See Below Anisocytosis 2+ Macrocytosis 2+ PT 39.0 H INR 4.0 H APTT 52.2 H VBG Lactate Sodium Potassium Chloride Carbon Dioxide Anion Gap BUN Creatinine Estimated GFR/1.73 m2 Glucose Calcium Magnesium Total Bilirubin Conjugated Bilirubin AST ALT Alkaline Phosphatase Ammonia Troponin I 0.29 H* Total Protein Albumin Lipase TSH Free T4 Ethyl Alcohol COVID-19 Source SARS-CoV-2 (PCR) 03/27/21 03/27/21 03/27/21 15:27 15:27 15:27 WBC RBC Hgb Hct MCV MCH MCHC RDW Plt Count MPV Immature Gran % Neutrophils % Lymphocytes % Monocytes % Eosinophils % Basophils % Nucleated RBC % Absolute Neutrophils Absolute Lymphocytes Absolute Monocytes Absolute Eosinophils Absolute Basophils RBC Morphology Anisocytosis Macrocytosis PT INR APTT VBG Lactate 3.4 H* Sodium 135 L Potassium 3.9 Chloride 99 Carbon Dioxide 30.9 Anion Gap 5.1 BUN 32 H Creatinine 5.1 H* Estimated GFR/1.73 m2 11.00 Glucose 182 H Calcium 8.0 L Magnesium 2.3 Total Bilirubin 1.7 H Conjugated Bilirubin 1.3 H AST 208 H ALT 77 H Alkaline Phosphatase 328 H Ammonia 32 Troponin I 0.31 H* Total Protein 6.2 L Albumin 1.4 L Lipase 168 TSH 5.38 H Free T4 1.24 Ethyl Alcohol < 3.0 COVID-19 Source SARS-CoV-2 (PCR) 03/27/21 15:22 WBC RBC Hgb Hct MCV MCH MCHC RDW Plt Count MPV Immature Gran % Neutrophils % Lymphocytes % Monocytes % Eosinophils % Basophils % Nucleated RBC % Absolute Neutrophils Absolute Lymphocytes Absolute Monocytes Absolute Eosinophils Absolute Basophils RBC Morphology Anisocytosis Macrocytosis PT INR APTT VBG Lactate Sodium Potassium Chloride Carbon Dioxide Anion Gap BUN Creatinine Estimated GFR/1.73 m2 Glucose Calcium Magnesium Total Bilirubin Conjugated Bilirubin AST ALT Alkaline Phosphatase Ammonia Troponin I Total Protein Albumin Lipase TSH Free T4 Ethyl Alcohol COVID-19 Source Nasal/Nares SARS-CoV-2 (PCR) Negative 03/27/21 16:05 Blood Blood Culture - Pending 03/27/21 15:49 Blood Blood Culture - Pending Preliminary micro results at discharge 03/27/21 16:05 Blood Culture - Pending Blood 03/27/21 15:49 Blood Culture - Pending Blood [facility] Active Problem List Encephalopathy, hepatic (Acute) ESRD (end stage renal disease) (Acute) Atrial fibrillation (Chronic) HCAP (healthcare-associated pneumonia) (Acute) General weakness (Acute) Coccyx pain (Acute) Cirrhosis (Acute) Confusion (Acute) Colitis (Acute) Liver mass (Acute) Lung mass (Acute) Gallbladder mass (Acute) Renal mass (Acute) ESRD (end stage renal disease) on dialysis (Acute) Atrial fibrillation with RVR (Acute) ESRD on dialysis (Acute) Elevated troponin (Acute) Chest pain (Acute) Supratherapeutic INR (Acute) Anterior epistaxis (Acute) Acquired hypercoagulable state (Acute) Epistaxis (Acute) Encounter for removal of nasal packing (Acute) Vascular dialysis catheter in place (Acute) Medical History Diabetes ESRD (end stage renal disease) on dialysis GERD (gastroesophageal reflux disease) HTN (hypertension) Surgical procedures, elective Removal of temporary dialysis catheter/port by Dr Eric Rivera, [facility] Surgical History H/O aortic valve replacement History of cataract surgery History of ear surgery Removal of squamous tumor History of nephrectomy History of tonsillectomy and adenoidectomy Family History Father No problems noted. Mother No problems noted. Sister No problems noted. Brother Heart attack Social History Smoking/Tobacco Use Status: Former Tobacco Use Smoking risk assessment performed?: Yes Alcohol Intake: former Drug use: Never Substance use type: does not use Do you feel safe at home: Yes Do you feel safe in your relationship?: Yes
[2021-03-28] MEDS: Acetaminophen 325 MG TAB 650 MG PO (12:03)
[2021-03-28 12:31] LABS: Prothrombin Time 39.2 sec (9.3-11.0)
[2021-03-28 13:50] VITALS: BP 90/52; PULSE 95; RESP 18; TEMP 36; O2SAT 96
--- NOTE | 2021-03-28 16:12 | CHAPLAIN ---
Tyrone was in bed when I visited. He said he is very weak, and can't take care of his anymore. He's being [facility] to [facility] for PT. He told me that he's missing peace of mind, with worries about his health and his 's. He has daughters, in [facility] and [place] who are available at times, but not always. When I asked Tyrnoe what he usually does to relax and calm himself, he said he has some hobbies, but they are physical, like boat building, so he can't do them any more. I brought Tyrone a prayer shawl to take with him to &[facility].
== END 2021-03-28 14:26 ==
LOC: ER 19:44 → MS 03-28 08:19
PROVIDERS: Internal Medicine; Admitting Provider General Practice; Emergency Provider Emergency Medicine; PCP Internal Medicine; Visit Provider General Practice
DX: J18.9 Pneumonia, unspecified organism (principal); R53.1 Weakness; J90 Pleural effusion, not elsewhere classified; N18.6 End stage renal disease; Z99.2 Dependence on renal dialysis; K74.60 Unspecified cirrhosis of liver; I48.91 Unspecified atrial fibrillation; Z79.01 Long term (current) use of anticoagulants; I12.0 Hypertensive chronic kidney disease with stage 5 chronic kidney disease or end stage renal disease; Z79.899 Other long term (current) drug therapy; Z20.822 Contact with and (suspected) exposure to COVID-19; R74.8 Abnormal levels of other serum enzymes; I95.9 Hypotension, unspecified
CPT/HCPCS: 36415; 74177; 80048; 80053; 83690; 87040; 87635; 93005; 96361; 96365; 96366; 96367; 99285; 71260; 80320; 82140; 82248; 83605; 83735; 84439; 84443; 84484; 85025; 85610; 85730; 93010; 99217; 99219; G0378; J2543; J3490